=== PATIENT | male | born 1955 | race American Indian/Alaskan Native ===

== ENCOUNTER 2018-10-09 10:05 | Inpatient (IN) | payer MEDICARE ==
[2018-10-09] MEDS ORDERED: NACL 0.9% 1000 ML 1,000 ML IV ONE ×2 (10:33→11:22)
--- NOTE | 2018-10-09 10:38 | Emergency Department Report ---
ED Altered Mental Status HPI - General Stated Complaint: ALTERED MENTAL STATUS Time Seen by Provider: 10/09/18 10:33 Source: patient, EMS - History of Present Illness Initial Comments: Patient was 63 minutes old male with history of end-stage renal disease on hemodialysis, hypertension, diabetes, anemia, prostate cancer and nephrostomy tube. Patient brought to the emergency via EMS from [facility] facility after patient became confused and altered after he sustained a fall from his bed.*Facility stated that patient was fine before the fall. In the emergency room patient is alert, oriented to place only. Patient moving all his extremities. No facial droop. No speech problem. Patient denied any chest pain, shortness of breath, fever or chills. Patient denied any weakness, numbness or tingling sensation. MD Complaint: altered mental status, confusion -: Sudden Severity: moderate Consistency of Symptoms: unknown Associated Symptoms: denies other symptoms - Related Data Allergies Allergy/AdvReac Type Severity Reaction Status Date / Time No Known Allergies Allergy Unverified 10/09/18 11:11 ED Review of Systems ROS: Stated complaint: ALTERED MENTAL STATUS Other details as noted in HPI Comment: All other systems reviewed and negative Constitutional: denies: chills, fever Respiratory: denies: cough, shortness of breath, SOB with exertion, SOB at rest, wheezing Cardiovascular: denies: chest pain, palpitations Gastrointestinal: denies: abdominal pain, nausea, vomiting Musculoskeletal: denies: back pain Neurological: denies: headache, weakness, numbness, paresthesias, confusion, abnormal gait ED Physical Exam - General Limitations: Altered Mental Status General appearance: alert, in no apparent distress - Head Head exam: Present: atraumatic, normocephalic, normal inspection - Eye Eye exam: Present: normal appearance, PERRL - ENT ENT exam: Present: normal exam, normal orophraynx, mucous membranes moist - Neck Neck exam: Present: normal inspection, full ROM. Absent: tenderness, meningismus, lymphadenopathy, thyromegaly - Respiratory Respiratory exam: Present: normal lung sounds bilaterally. Absent: respiratory distress, wheezes, rales, rhonchi, accessory muscle use, decreased breath sounds, prolonged expiratory - Cardiovascular Cardiovascular Exam: Present: regular rate, normal rhythm, normal heart sounds - GI/Abdominal GI/Abdominal exam: Present: soft, normal bowel sounds. Absent: distended, tenderness, guarding, rebound, rigid, organomegaly, mass, bruit, pulsatile mass - Extremities Exam Extremities exam: Present: normal inspection - Back Exam Back exam: Present: normal inspection, other (left nephrostomy tube in place.). Absent: tenderness, CVA tenderness (R), CVA tenderness (L) - Neurological Exam Neurological exam: Present: alert, altered, CN II-XII intact. Absent: motor sensory deficit - Skin Skin exam: Present: warm, intact, normal color ED Course Vital Signs 10/09/18 10/09/18 10/09/18 10:21 10:43 11:01 Temperature Pulse Rate 102 H 103 H Respiratory 11 L 18 13 Rate Blood Pressure 156/94 125/74 O2 Sat by Pulse 98 100 Oximetry 10/09/18 10/09/18 10/09/18 11:02 11:15 11:30 Temperature 99 F Pulse Rate 100 H 95 H Respiratory 10 L 12 Rate Blood Pressure 139/73 119/64 O2 Sat by Pulse 98 100 Oximetry - Lab Data Result diagrams: 10/09/18 10:41 10/09/18 10:41 Lab Results 10/09/18 10/09/18 10/09/18 Range/Units 10:41 10:41 10:41 WBC 26.0 H (4.5-11.0) K/mm3 RBC 2.66 L (3.65-5.03) M/mm3 Hgb 8.2 L (11.8-15.2) gm/dl Hct 23.9 L (35.5-45.6) % MCV 90 (84-94) fl MCH 31 (28-32) pg MCHC 34 (32-34) % RDW 14.2 (13.2-15.2) % Plt Count 368 (140-440) K/mm3 Lymph % (Auto) Field Reporter [place] % (Auto) Field Reporter Eos % (Auto) Field Reporter Baso % (Auto) Field Reporter Lymph # Field Reporter [place] # Field Reporter Eos # Field Reporter Baso # Field Reporter Seg Neutrophils % Field Reporter Seg Neutrophils # Field Reporter PT 16.2 H (12.2-14.9) Sec. INR 1.22 H (0.87-1.13) APTT 30.9 (24.2-36.6) Sec. Sodium 134 L (137-145) mmol/L Potassium 3.5 L (3.6-5.0) mmol/L Chloride 87.0 L (98-107) mmol/L Carbon Dioxide 26 (22-30) mmol/L Anion Gap 25 mmol/L BUN 48 H (9-20) mg/dL Creatinine 8.0 H (0.8-1.5) mg/dL Estimated GFR 8 ml/min BUN/Creatinine Ratio 6 % Glucose 202 H (75-100) mg/dL POC Glucose (70-105) Lactic Acid (0.7-2.0) mmol/L Calcium 10.2 (8.4-10.2) mg/dL Total Bilirubin 0.90 (0.1-1.2) mg/dL Direct Bilirubin 0.5 H (0-0.2) mg/dL Indirect Bilirubin 0.4 mg/dL AST 25 (5-40) units/L ALT 18 (7-56) units/L Alkaline Phosphatase 234 H (35-129) units/L Ammonia (25-60) umol/L Troponin T 0.233 H* (0.00-0.029) ng/mL Total Protein 8.0 (6.3-8.2) g/dL Albumin 3.5 L (3.9-5) g/dL Albumin/Globulin Ratio 0.8 % Triglycerides 274 H (2-149) mg/dL Cholesterol 176 (50-199) mg/dL LDL Cholesterol Direct 61 (50-130) mg/dL HDL Cholesterol 28 L (40-59) mg/dL Cholesterol/HDL Ratio 6.28 % Urine Color (Yellow) Urine Turbidity (Clear) Urine pH Ur Specific [place] Urine Protein (Negative) mg/dL Urine Glucose (UA) (Negative) mg/dL Urine Ketones (Negative) mg/dL Urine Blood (Negative) Urine Nitrite (Negative) Urine Bilirubin (Negative) Urine Ictotest Urine Urobilinogen Ur Leukocyte Esterase (Negative) Urine WBC (Auto) (0.0-6.0) /HPF Urine RBC (Auto) (0.0-6.0) /HPF Urine Bacteria (Auto) (Negative) /HPF 10/09/18 10/09/18 10/09/18 Range/Units 10:41 10:41 10:42 WBC (4.5-11.0) K/mm3 RBC (3.65-5.03) M/mm3 Hgb (11.8-15.2) gm/dl Hct (35.5-45.6) % MCV (84-94) fl MCH (28-32) pg MCHC (32-34) % RDW (13.2-15.2) % Plt Count (140-440) K/mm3 Lymph % (Auto) [place] % (Auto) Eos % (Auto) Baso % (Auto) Lymph # [place] # Eos # Baso # Seg Neutrophils % Seg Neutrophils # PT (12.2-14.9) Sec. INR (0.87-1.13) APTT (24.2-36.6) Sec. Sodium (137-145) mmol/L Potassium (3.6-5.0) mmol/L Chloride (98-107) mmol/L Carbon Dioxide (22-30) mmol/L Anion Gap mmol/L BUN (9-20) mg/dL Creatinine (0.8-1.5) mg/dL Estimated GFR ml/min BUN/Creatinine Ratio % Glucose (75-100) mg/dL POC Glucose 198 H (70-105) Lactic Acid 1.90 (0.7-2.0) mmol/L Calcium (8.4-10.2) mg/dL Total Bilirubin (0.1-1.2) mg/dL Direct Bilirubin (0-0.2) mg/dL Indirect Bilirubin mg/dL AST (5-40) units/L ALT (7-56) units/L Alkaline Phosphatase (35-129) units/L Ammonia 33.0 (25-60) umol/L Troponin T (0.00-0.029) ng/mL Total Protein (6.3-8.2) g/dL Albumin (3.9-5) g/dL Albumin/Globulin Ratio % Triglycerides (2-149) mg/dL Cholesterol (50-199) mg/dL LDL Cholesterol Direct (50-130) mg/dL HDL Cholesterol (40-59) mg/dL Cholesterol/HDL Ratio % Urine Color (Yellow) Urine Turbidity (Clear) Urine pH Ur Specific [place] Urine Protein (Negative) mg/dL Urine Glucose (UA) (Negative) mg/dL Urine Ketones (Negative) mg/dL Urine Blood (Negative) Urine Nitrite (Negative) Urine Bilirubin (Negative) Urine Ictotest Urine Urobilinogen Ur Leukocyte Esterase (Negative) Urine WBC (Auto) (0.0-6.0) /HPF Urine RBC (Auto) (0.0-6.0) /HPF Urine Bacteria (Auto) (Negative) /HPF 10/09/18 Range/Units 11:39 WBC (4.5-11.0) K/mm3 RBC (3.65-5.03) M/mm3 Hgb (11.8-15.2) gm/dl Hct (35.5-45.6) % MCV (84-94) fl MCH (28-32) pg MCHC (32-34) % RDW (13.2-15.2) % Plt Count (140-440) K/mm3 Lymph % (Auto) [place] % (Auto) Eos % (Auto) Baso % (Auto) Lymph # [place] # Eos # Baso # Seg Neutrophils % Seg Neutrophils # PT (12.2-14.9) Sec. INR (0.87-1.13) APTT (24.2-36.6) Sec. Sodium (137-145) mmol/L Potassium (3.6-5.0) mmol/L Chloride (98-107) mmol/L Carbon Dioxide (22-30) mmol/L Anion Gap mmol/L BUN (9-20) mg/dL Creatinine (0.8-1.5) mg/dL Estimated GFR ml/min BUN/Creatinine Ratio % Glucose (75-100) mg/dL POC Glucose (70-105) Lactic Acid (0.7-2.0) mmol/L Calcium (8.4-10.2) mg/dL Total Bilirubin (0.1-1.2) mg/dL Direct Bilirubin (0-0.2) mg/dL Indirect Bilirubin mg/dL AST (5-40) units/L ALT (7-56) units/L Alkaline Phosphatase (35-129) units/L Ammonia (25-60) umol/L Troponin T (0.00-0.029) ng/mL Total Protein (6.3-8.2) g/dL Albumin (3.9-5) g/dL Albumin/Globulin Ratio % Triglycerides (2-149) mg/dL Cholesterol (50-199) mg/dL LDL Cholesterol Direct (50-130) mg/dL HDL Cholesterol (40-59) mg/dL Cholesterol/HDL Ratio % Urine Color [place] (Yellow) Urine Turbidity Turbid (Clear) Urine pH Field Reporter Ur Specific [place] Field Reporter Urine Protein Color interference (Negative) mg/dL Urine Glucose (UA) Color interference (Negative) mg/dL Urine Ketones Color interference (Negative) mg/dL Urine Blood Color interference (Negative) Urine Nitrite Color interference (Negative) Urine Bilirubin Color interference (Negative) Urine Ictotest Not Reportable Urine Urobilinogen Field Reporter Ur Leukocyte Esterase Color interference (Negative) Urine WBC (Auto) > 182.0 H (0.0-6.0) /HPF Urine RBC (Auto) > 182.0 (0.0-6.0) /HPF Urine Bacteria (Auto) 4+ (Negative) /HPF - EKG Data -: EKG Interpreted by Nc EKG shows normal: sinus rhythm Rate: normal Interpretation: no acute changes - Radiology Data Radiology results: report reviewed Referring Physician: RAKESH MOORE Patient Name: ANDREY MONTOYA Date of : 1955 Sex: Male Report Date: 2018-10-09 Report Status: [place] [address] Cat Scan Report Signed Patient: ANDREY MONTOYA MR#: [id number] : 1955 Acct:[id number] Age/Sex: 63 / M ADM Date: 10/09/18 Loc: ED Attending Dr: Ordering Physician: RAKESH MOORE Date of Service: 10/09/18 Procedure(s): CT head/brain wo con Accession Number(s): [id number] cc: RAKESH MOORE CT HEAD WITHOUT CONTRAST: HISTORY: Altered mental status. TECHNIQUE: Sequential CT images without contrast. FINDINGS: Images obtained show bilateral prominence of the sulci and ventricles. There are no abnormal intra- or extra-axial blood or fluid collections. There are no focal masses or evidence of mass effect. The smith white matter differentiation appears within normal limits. Regions of periventricular decreased attenuation are consistent with microangiopathic ischemic disease. The posterior fossa structures including the fourth ventricle, cerebellum, and brainstem appear normal. IMPRESSION: Evidence of atrophy and microangiopathic ischemic disease. No acute intracranial process noted. Transcribed By: TTR Dictated By: JENNY ODOM JR, MD Electronically Authenticated By: JENNY ODOM JR, MD Signed Date/Time: 10/09/18 1105 Referring Physician: RAKESH MOORE Patient Name: ANDREY MONTOYA Date of : 1955 Sex: Male Report Date: 2018-10-09 Report Status: Finalized Findings [facility] [address] [place] [address] XRay Report Signed Patient: ANDREY MONTOYA MR#: [id number] : 1955 Acct:[id number] Age/Sex: 63 / M ADM Date: 10/09/18 Loc: ED Attending Dr: Ordering Physician: RAKESH MOORE Date of Service: 10/09/18 Procedure(s): XR chest 1V ap Accession Number(s): [id number] cc: RAKESH MOORE Fluoro Time In Minutes: AP CHEST: HISTORY: Altered mental status AP view of the chest demonstrates a normal mediastinal and cardiac contour with clear lungs and normal bony and soft tissue structures. A right IJ dialysis catheter terminates in the right atrium. IMPRESSION: Unremarkable AP chest. Transcribed By: TTR Dictated By: JENNY ODOM JR, MD Electronically Authenticated By: JENNY ODOM JR, MD Signed Date/Time: 10/09/18 1128 DD/ 1127 TD/TT: 10/09/18 1128 DD/ 1105 TD/TT: 10/09/18 1105 - Medical Decision Making Patient was 63 minutes old male with history of end-stage renal disease on hemodialysis, hypertension, diabetes, anemia, prostate cancer and nephrostomy tube. Patient brought to the emergency via EMS from acute rehabilitation facility after patient became confused and altered after he sustained a fall from his bed.*Facility stated that patient was fine before the fall. In the emergency room patient is alert, oriented to place only. Patient moving all his extremities. No facial droop. No speech problem. Patient denied any chest pain, shortness of breath, fever or chills. Patient denied any weakness, numbness or tingling sensation. Patient stated that he is feeling better. Patient found to have a urosepsis. Patient received Zosyn. I discussed the patient with Dr. Bianchi, he agreed to admit the patient to medical service. Critical Care Time: Yes Critical care time in (mins) excluding proc time.: 30 Critical care attestation.: If time is entered above; I have spent that time in minutes in the direct care of this critically ill patient, excluding procedure time. ED Disposition Clinical Impression: Sepsis, UTI (urinary tract infection), Altered mental status Disposition: OP ADMIT IP TO THIS HOSP Is pt being admited?: Yes Condition: Stable Referrals: POLY KARIMI MD [Primary Care Provider] - 3-5 Days
[2018-10-09 11:05] LABS: INR 1.22 (0.87-1.13)
[2018-10-09 11:06] LABS: Hematocrit 23.9 % (35.5-45.6); Hemoglobin 8.2 gm/dl (11.8-15.2); Mean Corpuscular HGB Conc 34 % (32-34); Mean Corpuscular Volume 90 fl (84-94); Partial Thromboplastin Time 30.9 Sec. (24.2-36.6); Platelet Count 368 K/mm3 (140-440); Red Blood Count 2.66 M/mm3 (3.65-5.03); Red Cell Distribution Width 14.2 % (13.2-15.2)
--- NOTE | 2018-10-09 11:09 | Cat Scan Report ---
CT HEAD WITHOUT CONTRAST: HISTORY: Altered mental status. TECHNIQUE: Sequential CT images without contrast. FINDINGS: Images obtained show bilateral prominence of the sulci and ventricles. There are no abnormal intra- or extra-axial blood or fluid collections. There are no focal masses or evidence of mass effect. The smith white matter differentiation appears within normal limits. Regions of periventricular decreased attenuation are consistent with microangiopathic ischemic disease. The posterior fossa structures including the fourth ventricle, cerebellum, and brainstem appear normal. IMPRESSION: Evidence of atrophy and microangiopathic ischemic disease. No acute intracranial process noted.
[2018-10-09 11:24] LABS: Albumin 3.5 g/dL (3.9-5); Bilirubin,Direct 0.5 mg/dL (0-0.2); Calcium 10.2 mg/dL (8.4-10.2)
--- NOTE | 2018-10-09 11:32 | XRay Report ---
AP CHEST: HISTORY: Altered mental status AP view of the chest demonstrates a normal mediastinal and cardiac contour with clear lungs and normal bony and soft tissue structures. A right IJ dialysis catheter terminates in the right atrium. IMPRESSION: Unremarkable AP chest.
[2018-10-09 11:48] LABS: Chol/HDL Ratio 6.28 %
[2018-10-09] MEDS ORDERED: ZOSYN/NS 3.375GM/50ML 3.375 GM/50 ML BAG IV ONE (12:00)
[2018-10-09 12:25] LABS: Bacteria,Urine 4+ /HPF (Negative)
[2018-10-09 12:32] LABS: Bilirubin,Urine Color Interference (Negative); Color,Urine Amber (Yellow); RBC,Urine > 182.0 /HPF (0.0-6.0); WBC,Urine > 182.0 /HPF (0.0-6.0)
[2018-10-09 12:33] LABS: Blood,Urine Color Interference (Negative); Protein,Urine Color Interference mg/dL (Negative)
[2018-10-09 14:17] LABS: Band Neutrophils # (Manual) 2.6 K/mm3; Basophils % (Manual) 0 % (0.0-1.8); Eosinophils % (Manual) 0 % (0.0-4.3); Total Cells Counted 100
[2018-10-09 14:18] LABS: Hypochromasia 1+; Platelet Clumps Rare; Platelet Estimate Consistent w Auto
[2018-10-09] MEDS ORDERED: ZOFRAN IV PRN (17:34)
[2018-10-09] MEDS ORDERED: ZOFRAN ONE (17:39)
[2018-10-09] MEDS ORDERED: REGLAN ONE (20:09)
[2018-10-09] MEDS: REGLAN IV PRN (20:40)
--- NOTE | 2018-10-09 22:02 | Event Note ---
Date: 10/09/18 See history and physical in the reports Altered mental status Endstage renal disease Sepsis UTI
[2018-10-09] MEDS ORDERED: TYLENOL PO PRN ×2 (22:03→22:06)
[2018-10-09] MEDS ORDERED: SENOKOT PO PRN (22:06)
[2018-10-09] MEDS: REMERON PO SCH (22:36)
[2018-10-09] MEDS: PEPCID PO SCH (22:36)
[2018-10-09] MEDS: EFFEXOR PO SCH (23:01)
[2018-10-10 06:34] LABS: Hematocrit 23.9 % (35.5-45.6); Hemoglobin 7.8 gm/dl (11.8-15.2); Mean Corpuscular HGB Conc 33 % (32-34); Mean Corpuscular Volume 90 fl (84-94); Platelet Count 316 K/mm3 (140-440); Red Blood Count 2.66 M/mm3 (3.65-5.03); Red Cell Distribution Width 14.7 % (13.2-15.2)
[2018-10-10 06:50] LABS: Albumin 2.7 g/dL (3.9-5); Calcium 9.5 mg/dL (8.4-10.2)
--- NOTE | 2018-10-10 07:27 | History and Physical Report ---
CHIEF COMPLAINT: Altered sensorium for 1 day. HISTORY OF PRESENT ILLNESS: A 63-year-old male brought in for altered sensorium of 1 day duration. The patient has history of end-stage renal disease, on hemodialysis, hypertension, diabetes, anemia, prostate cancer and nephrostomy tube. The patient brought to the Emergency Room from acute rehab facility because of confusion and altered sensorium. Also, he sustained a fall from the bed. Apparently was fine till he had the fall. In the Emergency Room, the patient is confused. Alert, but not oriented. Not answering questions appropriately. The patient is moving all his 4 extremities. Able to talk, but cannot understand what he is trying to say. No fever or chills. PAST MEDICAL HISTORY: Significant for; 1. End-stage renal disease. 2. Chronic constipation. 3. Vitamin D deficiency. 4. Anemia. 5. Depression. PAST SURGICAL HISTORY: The patient had a nephrostomy tube. ADDITIONAL MEDICAL HISTORY: Prostate cancer. FAMILY HISTORY: Hypertension. SOCIAL HISTORY: Unknown whether he was smoking. Now in a rehab facility. PHYSICAL EXAMINATION: GENERAL: Elderly male, cooperative during examination. VITAL SIGNS: Blood pressure is 117/61, temperature is 99.3, heart rate is 99, respiratory rate is 18. HEENT: Unremarkable. Pupils equal and reactive. NECK: Supple, no lymphadenopathy, no thyromegaly. LUNGS: Clear to auscultation and percussion. Good air entry. CARDIOVASCULAR SYSTEM: S1, S2 heard. No gallop, no murmur, no rub. Apical impulse in left fifth intercostal space in midclavicular line. ABDOMEN: Soft and benign. Nephrostomy tube in place. EXTREMITIES: Good pedal pulses. CENTRAL NERVOUS SYSTEM: Alert, but not oriented. Confused. SKIN: Normal. LABORATORY DATA: Significant for white count of 26,000, H and H is 8.2 and 23.9, platelet count is 368,000. Sodium is 134, potassium is 3.5, chloride is 87, BUN and creatinine is 48 and 8.0. Troponin is 0.233, alk phos is 234, triglycerides 274. Urine shows more than 182 WBCs. DIAGNOSTIC DATA: Head CT shows microangiopathic ischemic disease, no acute intracranial process. Chest x-ray, unremarkable AP chest. ASSESSMENT AND PLAN: 1. Sepsis secondary to urinary tract infection. The patient was started on IV ceftriaxone, pending urine cultures. 2. Status post nephrostomy tube. Will get Urology consult. 3. Acute encephalopathy, probably secondary to uremia and sepsis. Will treat both. Nephrology consult requested. 4. End-stage renal disease requiring dialysis and Nephrology consulted. His regular transition social worker is not known. The patient is not able to tell. Location Director advisor consultant was requested to consult. Dr. Mayorga is advisor consultant. 5. Chronic pain. Continue hydrocodone/oxycodone. 6. Vitamin D deficiency. Continue vitamin D. 7. Anemia. Continue ferrous sulfate and Epogen if necessary. 8. Chronic constipation. Continue MiraLax. 9. Deep venous thrombosis prophylaxis, heparin 5000 q. 12. JOB# [id number] NELY/RAYMOND
--- NOTE | 2018-10-10 08:59 | Consultation ---
History of Present Illness - Reason for Consult Consult date: 10/10/18 - History of Present Illness CC prostate cancer, renal failure (NEW TO OUR PRACTICE) Patient was 63 minutes old male with history of end-stage renal disease on hemodialysis, hypertension, diabetes, anemia, prostate cancer and nephrostomy tube. Patient brought to the emergency via EMS from acute rehabilitation facility after patient became confused and altered after he sustained a fall from his bed.*Facility stated that patient was fine before the fall. In the emergency room patient is alert, oriented to place only. Patient moving all his extremities. No facial droop. No speech problem. Patient denied any chest pain, shortness of breath, fever or chills. Patient denied any weakness, numbness or tingling sensation. alert , not oriented ABD SOFT RT PERC TUBE - SMALL [place] URINE + DIAPER A/P HX OF PROSTATE CA PER CHART KIDNEY FAILURE WITH RT PERC TUBE NEEDS PSA, CTAP, RT NEPHROSTOGRAM Medications and Allergies Allergies Allergy/AdvReac Type Severity Reaction Status Date / Time No Known Allergies Allergy Unverified 10/09/18 11:11 Home Medications Medication Instructions Recorded Confirmed Last Taken Type Abiraterone Acetate (Nf) [Zytiga 1,000 mg PO QDAY 10/09/18 10/09/18 Unknown History (Nf)] Acetaminophen [Tylenol] 500 mg PO Q6HR PRN 10/09/18 10/09/18 Unknown History Cholecalciferol Vit D3 [Vitamin D3 2,000 unit PO QDAY 10/09/18 10/09/18 Unknown History 1,000 UNIT TAB] Ferrous Sulfate [Iron] 325 mg PO QDAY 10/09/18 10/09/18 Unknown History HYDROcodone/APAP 5-325 [[place] 1 each PO Q6HR PRN 10/09/18 10/09/18 Unknown History 5/325] Mirtazapine 7.5 mg PO HS 10/09/18 10/09/18 Unknown History Multivit-Min/FA/Lycopen/Lutein 1 each PO DAILY 10/09/18 10/09/18 Unknown History [Men 50 Plus Multivitamin Tab] Ondansetron [Zofran ODT TAB] 8 mg PO Q8HR PRN 10/09/18 10/09/18 Unknown History Polyethylene Glycol 3350 17 gm PO PRN PRN 10/09/18 10/09/18 Unknown History [Smoothlax] Sennosides [Senna Laxative] 8.6 mg PO PRN PRN 10/09/18 10/09/18 Unknown History Sevelamer Carbonate [Renvela] 800 mg PO TIDWM 10/09/18 10/09/18 Unknown History Venlafaxine [Effexor 25mg tab] 25 mg PO BID 10/09/18 10/09/18 Unknown History predniSONE [Prednisone] 5 mg PO QDAY 10/09/18 10/09/18 Unknown History Active Meds: Active Medications Acetaminophen (Tylenol) 650 mg PO Q4H PRN PRN Reason: Pain MILD(1-3)/Fever >100.5/DIAZ Acetaminophen (Tylenol) 500 mg PO Q6HR PRN PRN Reason: Pain, Moderate (4-6) Cholecalciferol (Vitamin D3) 2,000 unit PO QDAY [facility] Famotidine (Pepcid) 10 mg PO BID [facility] Last Admin: 10/09/18 22:36 Dose: 10 mg Documented by: Ferrous Sulfate (Feosol) 325 mg PO QDAY [facility] Hydromorphone HCl (Dilaudid) 0.25 mg IV Q3H PRN PRN Reason: Pain, Moderate (4-6) Ceftriaxone Sodium (Rocephin/Ns 1 Gm/50 Ml) 1 gm in 50 mls @ 100 mls/hr IV Q24HR [facility]; Protocol Metoclopramide HCl (Reglan) 10 mg IV Q6H PRN PRN Reason: Nausea And Vomiting Last Admin: 10/09/18 20:40 Dose: 10 mg Documented by: Mirtazapine (Remeron) 7.5 mg PO QHS [facility] Last Admin: 10/09/18 22:36 Dose: 7.5 mg Documented by: Miscellaneous Medication (Abiraterone Acetate (Nf)) 1,000 mg PO QDAY [facility] Ondansetron HCl (Zofran) 4 mg IV Q8H PRN PRN Reason: Nausea And Vomiting Oxycodone/Acetaminophen (Percocet 5/325) 1 tab PO Q6H PRN PRN Reason: Pain, Moderate (4-6) Pneumococcal Polyvalent Vaccine (Pneumovax 23) 0.5 ml IM .ONCE ONE Stop: 10/10/18 12:01 Prednisone (Deltasone) 5 mg PO QDAY [facility] Senna (Senokot) 8.6 mg PO DAILY PRN PRN Reason: Constipation Sevelamer Carbonate (Renvela) 800 mg PO TIDWM [facility] Sodium Chloride (Sodium Chloride Flush Syringe 10 Ml) 10 ml IV BID [facility] Sodium Chloride (Sodium Chloride Flush Syringe 10 Ml) 10 ml IV PRN PRN PRN Reason: LINE FLUSH Venlafaxine HCl (Effexor) 25 mg PO BID [facility] Last Admin: 10/09/18 23:01 Dose: 25 mg Documented by: Exam - Constitutional Vitals: Temp Pulse Resp BP Pulse Ox 98.9 F 104 H 18 142/70 93 10/10/18 08:13 10/10/18 08:13 10/10/18 08:13 10/10/18 08:13 10/10/18 08:13 Results - Labs CBC & Chem 7: 10/10/18 06:02 10/10/18 06:02 Labs: Abnormal lab results 10/09/18 10/09/18 10/09/18 Range/Units 10:41 10:41 10:41 WBC 26.0 H (4.5-11.0) K/mm3 RBC 2.66 L (3.65-5.03) M/mm3 Hgb 8.2 L (11.8-15.2) gm/dl Hct 23.9 L (35.5-45.6) % Seg Neuts % (Manual) 82.0 H (40.0-70.0) % Lymphocytes % (Manual) 5.0 L (13.4-35.0) % Seg Neutrophils # Man 21.3 H (1.8-7.7) K/mm3 PT 16.2 H (12.2-14.9) Sec. INR 1.22 H (0.87-1.13) Sodium 134 L (137-145) mmol/L Potassium 3.5 L (3.6-5.0) mmol/L Chloride 87.0 L (98-107) mmol/L Carbon Dioxide (22-30) mmol/L BUN 48 H (9-20) mg/dL Creatinine 8.0 H (0.8-1.5) mg/dL Glucose 202 H (75-100) mg/dL POC Glucose (70-105) Direct Bilirubin 0.5 H (0-0.2) mg/dL Alkaline Phosphatase 234 H (35-129) units/L Troponin T 0.233 H* (0.00-0.029) ng/mL Albumin 3.5 L (3.9-5) g/dL Triglycerides 274 H (2-149) mg/dL HDL Cholesterol 28 L (40-59) mg/dL Urine WBC (Auto) (0.0-6.0) /HPF 10/09/18 10/09/18 10/09/18 Range/Units 10:42 11:39 20:15 WBC (4.5-11.0) K/mm3 RBC (3.65-5.03) M/mm3 Hgb (11.8-15.2) gm/dl Hct (35.5-45.6) % Seg Neuts % (Manual) (40.0-70.0) % Lymphocytes % (Manual) (13.4-35.0) % Seg Neutrophils # Man (1.8-7.7) K/mm3 PT (12.2-14.9) Sec. INR (0.87-1.13) Sodium (137-145) mmol/L Potassium (3.6-5.0) mmol/L Chloride (98-107) mmol/L Carbon Dioxide (22-30) mmol/L BUN (9-20) mg/dL Creatinine (0.8-1.5) mg/dL Glucose (75-100) mg/dL POC Glucose 198 H 178 H (70-105) Direct Bilirubin (0-0.2) mg/dL Alkaline Phosphatase (35-129) units/L Troponin T (0.00-0.029) ng/mL Albumin (3.9-5) g/dL Triglycerides (2-149) mg/dL HDL Cholesterol (40-59) mg/dL Urine WBC (Auto) > 182.0 H (0.0-6.0) /HPF 10/09/18 10/10/18 10/10/18 Range/Units 22:12 06:02 06:02 WBC 20.7 H (4.5-11.0) K/mm3 RBC 2.66 L (3.65-5.03) M/mm3 Hgb 7.8 L (11.8-15.2) gm/dl Hct 23.9 L (35.5-45.6) % Seg Neuts % (Manual) (40.0-70.0) % Lymphocytes % (Manual) (13.4-35.0) % Seg Neutrophils # Man (1.8-7.7) K/mm3 PT (12.2-14.9) Sec. INR (0.87-1.13) Sodium 134 L (137-145) mmol/L Potassium (3.6-5.0) mmol/L Chloride 92.3 L (98-107) mmol/L Carbon Dioxide 19 L D (22-30) mmol/L BUN 53 H (9-20) mg/dL Creatinine 8.8 H (0.8-1.5) mg/dL Glucose 145 H (75-100) mg/dL POC Glucose 161 H (70-105) Direct Bilirubin (0-0.2) mg/dL Alkaline Phosphatase 181 H (35-129) units/L Troponin T (0.00-0.029) ng/mL Albumin 2.7 L (3.9-5) g/dL Triglycerides (2-149) mg/dL HDL Cholesterol (40-59) mg/dL Urine WBC (Auto) (0.0-6.0) /HPF 10/10/18 Range/Units 08:18 WBC (4.5-11.0) K/mm3 RBC (3.65-5.03) M/mm3 Hgb (11.8-15.2) gm/dl Hct (35.5-45.6) % Seg Neuts % (Manual) (40.0-70.0) % Lymphocytes % (Manual) (13.4-35.0) % Seg Neutrophils # Man (1.8-7.7) K/mm3 PT (12.2-14.9) Sec. INR (0.87-1.13) Sodium (137-145) mmol/L Potassium (3.6-5.0) mmol/L Chloride (98-107) mmol/L Carbon Dioxide (22-30) mmol/L BUN (9-20) mg/dL Creatinine (0.8-1.5) mg/dL Glucose (75-100) mg/dL POC Glucose 156 H (70-105) Direct Bilirubin (0-0.2) mg/dL Alkaline Phosphatase (35-129) units/L Troponin T (0.00-0.029) ng/mL Albumin (3.9-5) g/dL Triglycerides (2-149) mg/dL HDL Cholesterol (40-59) mg/dL Urine WBC (Auto) (0.0-6.0) /HPF
[2018-10-10] MEDS: RENVELA PO SCH ×4 (09:14→19:01)
[2018-10-10] MEDS ORDERED: ABIRATERONE ACETATE 1000 MG PO SCH (10:00)
[2018-10-10 10:09] LABS: Band Neutrophils # (Manual) 2.1 K/mm3; Basophils % (Manual) 0 % (0.0-1.8); Eosinophils % (Manual) 0 % (0.0-4.3); Hypochromasia 1+; Myelocytes # (Manual) 0.2 K/mm3; Platelet Estimate Consistent w Auto; Total Cells Counted 100
[2018-10-10] MEDS ORDERED: NACL 0.9% 100 ML IV PRN (11:22)
--- NOTE | 2018-10-10 11:42 | Consultation ---
History of Present Illness - Reason for Consult end stage renal disease, hyponatremia - History of Present Illness Limited History obtained from chart patient is very confused 63-year-old gentleman with medical history significant for end-stage renal disease on dialysis, hypertension prostate cancer history of nephrostomy tube placements admitted with confusion and recent fall in detention. He has a right IJ PermCath. The patient is currently unable to provide any history He has a right-sided nephrostomy tube. Last dialysis session is not clear Past History Past Medical History: dialysis Past Surgical History: Other (nephrostomy) Medications and Allergies Allergies Allergy/AdvReac Type Severity Reaction Status Date / Time No Known Allergies Allergy Unverified 10/09/18 11:11 Home Medications Medication Instructions Recorded Confirmed Last Taken Type Abiraterone Acetate (Nf) [Zytiga 1,000 mg PO QDAY 10/09/18 10/09/18 Unknown History (Nf)] Acetaminophen [Tylenol] 500 mg PO Q6HR PRN 10/09/18 10/09/18 Unknown History Cholecalciferol Vit D3 [Vitamin D3 2,000 unit PO QDAY 10/09/18 10/09/18 Unknown History 1,000 UNIT TAB] Ferrous Sulfate [Iron] 325 mg PO QDAY 10/09/18 10/09/18 Unknown History HYDROcodone/APAP 5-325 [[place] 1 each PO Q6HR PRN 10/09/18 10/09/18 Unknown History 5/325] Mirtazapine 7.5 mg PO HS 10/09/18 10/09/18 Unknown History Multivit-Min/FA/Lycopen/Lutein 1 each PO DAILY 10/09/18 10/09/18 Unknown History [Men 50 Plus Multivitamin Tab] Ondansetron [Zofran ODT TAB] 8 mg PO Q8HR PRN 10/09/18 10/09/18 Unknown History Polyethylene Glycol 3350 17 gm PO PRN PRN 10/09/18 10/09/18 Unknown History [Smoothlax] Sennosides [Senna Laxative] 8.6 mg PO PRN PRN 10/09/18 10/09/18 Unknown History Sevelamer Carbonate [Renvela] 800 mg PO TIDWM 10/09/18 10/09/18 Unknown History Venlafaxine [Effexor 25mg tab] 25 mg PO BID 10/09/18 10/09/18 Unknown History predniSONE [Prednisone] 5 mg PO QDAY 10/09/18 10/09/18 Unknown History Active Meds: Active Medications Acetaminophen (Tylenol) 650 mg PO Q4H PRN PRN Reason: Pain MILD(1-3)/Fever >100.5/DIAZ Acetaminophen (Tylenol) 500 mg PO Q6HR PRN PRN Reason: Pain, Moderate (4-6) Cholecalciferol (Vitamin D3) 2,000 unit PO QDAY [facility] Famotidine (Pepcid) 10 mg PO BID [facility] Last Admin: 10/09/18 22:36 Dose: 10 mg Documented by: Ferrous Sulfate (Feosol) 325 mg PO QDAY [facility] Hydromorphone HCl (Dilaudid) 0.25 mg IV Q3H PRN PRN Reason: Pain, Moderate (4-6) Ceftriaxone Sodium (Rocephin/Ns 1 Gm/50 Ml) 1 gm in 50 mls @ 100 mls/hr IV Q24HR [facility]; Protocol Metoclopramide HCl (Reglan) 10 mg IV Q6H PRN PRN Reason: Nausea And Vomiting Last Admin: 10/09/18 20:40 Dose: 10 mg Documented by: Mirtazapine (Remeron) 7.5 mg PO QHS [facility] Last Admin: 10/09/18 22:36 Dose: 7.5 mg Documented by: Miscellaneous Medication (Abiraterone Acetate (Nf)) 1,000 mg PO QDAY [facility] Ondansetron HCl (Zofran) 4 mg IV Q8H PRN PRN Reason: Nausea And Vomiting Oxycodone/Acetaminophen (Percocet 5/325) 1 tab PO Q6H PRN PRN Reason: Pain, Moderate (4-6) Pneumococcal Polyvalent Vaccine (Pneumovax 23) 0.5 ml IM .ONCE ONE Stop: 10/10/18 12:01 Prednisone (Deltasone) 5 mg PO QDAY [facility] Senna (Senokot) 8.6 mg PO DAILY PRN PRN Reason: Constipation Sevelamer Carbonate (Renvela) 800 mg PO TIDWM [facility] Last Admin: 10/10/18 09:19 Dose: Not Given Documented by: Sodium Chloride (Sodium Chloride Flush Syringe 10 Ml) 10 ml IV BID [facility] Sodium Chloride (Sodium Chloride Flush Syringe 10 Ml) 10 ml IV PRN PRN PRN Reason: LINE FLUSH Venlafaxine HCl (Effexor) 25 mg PO BID [facility] Last Admin: 10/09/18 23:01 Dose: 25 mg Documented by: Review of Systems ROS unobtainable: due to mental status (patient is very confused review of systems unobtainable) Exam - Vital Signs Vital signs: Vital Signs Resp 11 L 10/09/18 10:21 - General Appearance General appearance: chronically ill, fatigue, frail EENT: ATNC, PERRL, mucous membranes dry Neck: Present: neck supple Respiratory: Clear to Ascultation Heart: regular, S1S2 Gastrointestinal: Present: normal, normoactive bowel sounds Integumentary: no rash Neurologic: confused Musculoskeletal: Present: deferred Psychiatric: depressed Additional exam: Right nephrostomy tube Results - Lab Results 10/10/18 06:02 10/10/18 06:02 Most recent lab results Calcium 9.5 mg/dL (8.4-10.2) 10/10/18 06:02 I reviewed chest x-ray with mostly clear lung maloney Assessment and Plan - Patient Problems (1) End stage renal disease Current Visit: Yes Status: Acute Plan to address problem: End-stage renal disease Access right IJ catheter We'll initiate dialysis 2K/2.5CA/35HCO3 BATH UF : 2L . (2) Hypertension Current Visit: Yes Status: Acute Qualifiers: Hypertension type: essential hypertension Qualified Code(s): I10 - Essential (primary) hypertension Plan to address problem: Hypertension controlled Monitor blood pressure (3) Sepsis Current Visit: Yes Status: Acute Plan to address problem: Sepsis secondary to urinary tract infection SIRS criteria 2 out of 4 Leukocytosis and tachycardia Urinalysis revealed numerous white cells Blood cultures pending. Obtain urine culture (4) Anemia Current Visit: Yes Status: Acute Qualifiers: Anemia type: due to chronic kidney disease Plan to address problem: Moderate anemia hemoglobin 7.8 g per DL Etiology likely secondary to chronic kidney disease We'll give Epogen 20,000 units with dialysis Monitor CBC We will follow with you thank you for this consultation (5) Metabolic acidosis Current Visit: Yes Status: Acute Plan to address problem: Metabolic acidosis secondary to renal failure We'll initiate dialysis We will follow with you. Thank you for this consult.
[2018-10-10] MEDS ORDERED: PNEUMOVAX 23 IM ONE (12:00)
[2018-10-10] MEDS ORDERED: AFLURIA QUAD 2018-2019 SYRINGE IM ONE (12:00)
[2018-10-10] MEDS: VITAMIN D3 PO SCH (12:26)
[2018-10-10] MEDS: PEPCID PO SCH ×2 (12:27→23:30)
[2018-10-10] MEDS: FEOSOL PO SCH (12:27)
[2018-10-10] MEDS: SODIUM CHLORIDE FLUSH SYRINGE 10 ML IV SCH ×2 (12:28→23:40)
--- NOTE | 2018-10-10 12:34 | Cat Scan Report ---
CT ABDOMEN PELVIS WITHOUT CONTRAST: HISTORY: Kidney failure. COMPARISON: No relevant comparison. TECHNIQUE: Helical CT in 1.25mm intervals without IV contrast. Sagittal and coronal reconstructions. FINDINGS: Lung bases: Trace bilateral pleural effusions. The visualized lung bases are adequately aerated. Multiple enlarged lymph nodes are partially visualized in the mediastinum including the AP window chain, right paratracheal chain and subcarinal chain measuring up to 3-4 cm. Liver: Within normal limits. Biliary system: Normal. Pancreas: Normal. Spleen: Normal. Kidneys/ureters/bladder: There is a large subcapsular hematoma which compresses the right kidney and measures up to 2.9 cm in thickness. A right nephrostomy tube is identified which appears in good position. There is also a right ureteral stent which is in good position. No evidence for hydronephrosis, obvious mass or nephrolithiasis. The left kidney and collecting system are unremarkable. The bladder is partially empty but unremarkable. Adrenal glands: Normal. Aorta: Normal. Intestines: Within normal limits given no oral contrast was administered. Appendix: Normal. Ascites: None. Adenopathy: Multiple enlarged lymph nodes are noted in the celiac axis chain, left periaortic chain, aortocaval chain and bilateral iliac chains. Musculoskeletal: Numerous lytic lesions are noted throughout the thoracolumbar spine and pelvis. IMPRESSION: Large subcapsular hematoma is identified in the right kidney which significantly compresses the right kidney. Right nephrostomy tube and right ureteral stent are in good position. Numerous enlarged lymph nodes are noted throughout the chest, abdomen and pelvis. Numerous lytic bony lesions are also identified. This could represent lymphoma although other metastatic disease is not excluded. Please correlate with the patient's history. Trace bilateral pleural effusions. No acute inflammatory process is identified.
[2018-10-10] MEDS: ROCEPHIN/NS 1 GM/50 ML 1 GM/50 ML BAG IV SCH (12:38)
[2018-10-10] MEDS: DELTASONE PO SCH (12:39)
[2018-10-10] MEDS: EFFEXOR PO SCH ×2 (12:39→23:40)
--- NOTE | 2018-10-10 13:29 | Event Note ---
Date: 10/10/18 ps[facility] [id number] CTAP--- rt perc in good position, stent + bone mets start casodex
--- NOTE | 2018-10-10 13:51 | Fluoroscopy Report ---
FLUOROSCOPY NEPHROSTOGRAM EXISTING RIGHT History: Kidney failure. Findings: 13 fluoroscopic images were captured during this exam. The right nephrostomy tube was injected approximately 25 cc of water-soluble contrast. The nephrostomy tube appears to be in good position. There is no evidence for hydronephrosis. A right ureteral stent is also in good position and opacifies with contrast all the way to the bladder. No filling defect or abnormal dilatation is identified. Correlation with recent CT abdomen and pelvis demonstrates a large subcapsular hematoma in the right kidney. Please refer to that report. Impression: Essentially unremarkable nephrostogram. No obstruction or filling defect is identified.
[2018-10-10] MEDS ORDERED: NACL 0.9 (PRIMING MACHINE ONLY DIALYSIS) MC ONE (15:02)
[2018-10-10] MEDS: PROCRIT IV PRN (17:30)
[2018-10-10] MEDS: REGLAN IV PRN (18:12)
[2018-10-10 19:08] LABS: Hepatitis C Virus Antibody Non-Reactive (NonReactive)
[2018-10-10] MEDS ORDERED: NON-FORMULARY (Mirtazapine [Mirtazapine] 7.5 MG) PO SCH (22:00)
[2018-10-10] MEDS ORDERED: FLEET PR ONE (23:09)
[2018-10-10] MEDS: REMERON PO SCH (23:40)
[2018-10-10] MEDS: ZOFRAN IV PRN (23:43)
[2018-10-11] MEDS: DILAUDID IV PRN ×2 (02:17→09:09)
[2018-10-11] MEDS: SODIUM CHLORIDE FLUSH SYRINGE 10 ML IV PRN ×2 (09:09→14:04)
[2018-10-11] MEDS: RENVELA PO SCH ×3 (09:10→17:35)
[2018-10-11] MEDS: ROCEPHIN/NS 1 GM/50 ML 1 GM/50 ML BAG IV SCH (09:53)
[2018-10-11] MEDS: VITAMIN D3 PO SCH (09:54)
[2018-10-11] MEDS: FEOSOL PO SCH (09:54)
[2018-10-11] MEDS: CASODEX PO SCH (09:54)
[2018-10-11] MEDS: EFFEXOR PO SCH ×2 (09:54→22:15)
[2018-10-11] MEDS: DELTASONE PO SCH (09:54)
--- NOTE | 2018-10-11 12:54 | Progress Note ---
Assessment and Plan - Patient Problems (1) End stage renal disease Current Visit: Yes Status: Acute Plan to address problem: End-stage renal disease Access right IJ catheter Receive dialysis on 10/10/2018 on dialysis Repeat dialysis in the a.m. (2) Hypertension Current Visit: Yes Status: Acute Qualifiers: Hypertension type: essential hypertension Qualified Code(s): I10 - Essential (primary) hypertension Plan to address problem: Hypertension controlled Monitor blood pressure (3) Sepsis Current Visit: Yes Status: Acute Plan to address problem: Sepsis secondary to urinary tract infection SIRS criteria 2 out of 4 Leukocytosis and tachycardia Urinalysis revealed numerous white cells Blood cultures pending. Obtain urine culture (4) Anemia Current Visit: Yes Status: Acute Qualifiers: Anemia type: due to chronic kidney disease Plan to address problem: Moderate anemia hemoglobin 7.8 g per DL Etiology likely secondary to chronic kidney disease We'll give Epogen 20,000 units with dialysis Monitor CBC We will follow with you thank you for this consultation (5) Metabolic acidosis Current Visit: Yes Status: Acute Plan to address problem: Metabolic acidosis secondary to renal failure continue dialysis We will follow with you. Thank you for this consult. Subjective Principal diagnosis: end-stage renal disease Interval history: Limited History obtained from chart patient is very confused 63-year-old gentleman with medical history significant for end-stage renal disease on dialysis, hypertension prostate cancer history of nephrostomy tube placements admitted with confusion and recent fall in half-way. He has a right IJ PermCath. He had dialysis yesterday and remains confused Review of systems unobtainable Objective - Vital Signs Vital signs: Vital Signs - 12hr 10/11/18 10/11/18 10/11/18 02:17 02:47 03:21 Temperature 98.3 F Pulse Rate 105 H Respiratory 22 18 20 Rate Blood Pressure 106/67 O2 Sat by Pulse 100 Oximetry 10/11/18 10/11/18 08:08 10:00 Temperature 98.3 F Pulse Rate 101 H Respiratory 18 Rate Blood Pressure 118/67 O2 Sat by Pulse 93 93 Oximetry - General Appearance General appearance: well-developed, well-nourished EENT: ATNC, PERRL, mucous membranes moist Neck: no JVD Respiratory: Present: Decreased Breath Sounds Cardiology: regular, S1S2 Gastrointestinal: normal, normoactive bowel sounds Integumentary: no rash Neurologic: alert and oriented x3 Musculoskeletal: deferred Psychiatric: mood/affect appropriate - Lab 10/10/18 06:02 10/10/18 06:02 Most recent lab results Calcium 9.5 mg/dL (8.4-10.2) 10/10/18 06:02 - Imaging Chest x-ray: image reviewed (I reviewed chest x-ray without any overt edema right IJ PermCath) Medications & Allergies - Medications Allergies/Adverse Reactions: Allergies No Known Allergies Allergy (Unverified 10/09/18 11:11) Home Medications: Home Medications Medication Instructions Recorded Confirmed Last Taken Type Abiraterone Acetate (Nf) [Zytiga 1,000 mg PO QDAY 10/09/18 10/09/18 Unknown History (Nf)] Acetaminophen [Tylenol] 500 mg PO Q6HR PRN 10/09/18 10/09/18 Unknown History Cholecalciferol Vit D3 [Vitamin D3 2,000 unit PO QDAY 10/09/18 10/09/18 Unknown History 1,000 UNIT TAB] Ferrous Sulfate [Iron] 325 mg PO QDAY 10/09/18 10/09/18 Unknown History HYDROcodone/APAP 5-325 [[place] 1 each PO Q6HR PRN 10/09/18 10/09/18 Unknown History 5/325] Mirtazapine 7.5 mg PO HS 10/09/18 10/09/18 Unknown History Multivit-Min/FA/Lycopen/Lutein 1 each PO DAILY 10/09/18 10/09/18 Unknown History [Men 50 Plus Multivitamin Tab] Ondansetron [Zofran ODT TAB] 8 mg PO Q8HR PRN 10/09/18 10/09/18 Unknown History Polyethylene Glycol 3350 17 gm PO PRN PRN 10/09/18 10/09/18 Unknown History [Smoothlax] Sennosides [Senna Laxative] 8.6 mg PO PRN PRN 10/09/18 10/09/18 Unknown History Sevelamer Carbonate [Renvela] 800 mg PO TIDWM 10/09/18 10/09/18 Unknown History Venlafaxine [Effexor 25mg tab] 25 mg PO BID 10/09/18 10/09/18 Unknown History predniSONE [Prednisone] 5 mg PO QDAY 10/09/18 10/09/18 Unknown History Active Medications: Generic Name Dose Route Start Last Admin Trade Name Freq PRN Reason Stop Dose Admin Acetaminophen 650 mg 10/09/18 22:03 Tylenol PO Q4H PRN Pain MILD(1-3)/Fever >100.5/DIAZ Acetaminophen 500 mg 10/09/18 22:06 Tylenol PO Q6HR PRN Pain, Moderate (4-6) Bicalutamide 50 mg 10/11/18 10:00 10/11/18 09:54 Casodex PO 50 mg QDAY [facility] Administration Cholecalciferol 2,000 unit 10/10/18 10:00 10/11/18 09:54 Vitamin D3 PO 2,000 unit QDAY [facility] Administration Epoetin Víctor 20,000 unit 10/10/18 14:00 10/10/18 17:30 Procrit IV 20,000 unit [place] PRN Administration .anemia Famotidine 10 mg 10/09/18 23:00 10/10/18 23:30 Pepcid PO 10 mg BID [facility] Administration Ferrous Sulfate 325 mg 10/10/18 10:00 10/11/18 09:54 Feosol PO 325 mg QDAY [facility] Administration Hydromorphone HCl 0.25 mg 10/09/18 22:03 10/11/18 09:09 Dilaudid IV 0.25 mg Q3H PRN Administration Pain, Moderate (4-6) Ceftriaxone Sodium 1 gm in 50 mls @ 100 mls/hr 10/10/18 10:00 10/11/18 09:53 Rocephin/Ns 1 Gm/50 Ml IV 100 mls/hr Q24HR [facility] Administration Protocol Sodium Chloride 100 mls @ 999 mls/hr 10/10/18 11:22 Nacl 0.9% IV [place] PRN Hypotension Metoclopramide HCl 10 mg 10/09/18 20:01 10/10/18 18:12 Reglan IV 10 mg Q6H PRN Administration Nausea And Vomiting Mirtazapine 7.5 mg 10/09/18 22:00 10/10/18 23:40 Remeron PO 7.5 mg QHS [facility] Administration Miscellaneous Medication 1,000 mg 10/10/18 10:00 Abiraterone Acetate (Nf) PO QDAY [facility] Ondansetron HCl 4 mg 10/09/18 22:03 10/10/18 23:43 Zofran IV 4 mg Q8H PRN Administration Nausea And Vomiting Oxycodone/Acetaminophen 1 tab 10/09/18 22:03 Percocet 5/325 PO Q6H PRN Pain, Moderate (4-6) Prednisone 5 mg 10/10/18 10:00 10/11/18 09:54 Deltasone PO 5 mg QDAY [facility] Administration Senna 8.6 mg 10/09/18 22:06 10/10/18 22:32 Senokot PO 8.6 mg DAILY PRN Administration Constipation Sevelamer Carbonate 800 mg 10/10/18 08:00 10/11/18 09:10 Renvela PO 800 mg TIDWM [facility] Administration Sodium Chloride 10 ml 10/10/18 10:00 10/10/18 23:40 Sodium Chloride Flush Syringe 10 Ml IV 10 ml BID [facility] Administration Sodium Chloride 10 ml 10/09/18 22:03 10/11/18 09:09 Sodium Chloride Flush Syringe 10 Ml IV 10 ml PRN PRN Administration LINE FLUSH Venlafaxine HCl 25 mg 10/09/18 23:00 10/11/18 09:54 Effexor PO 25 mg BID [facility] Administration
[2018-10-11] MEDS: PERCOCET 5/325 PO PRN (13:20)
[2018-10-11] MEDS: PEPCID PO SCH ×2 (13:21→22:15)
[2018-10-11] MEDS: ZOFRAN IV PRN (14:04)
--- NOTE | 2018-10-11 15:32 | Progress Note ---
Assessment and Plan (1) Sepsis Current Visit: Yes Status: Acute Plan to address problem: Sepsis secondary to urinary tract infection SIRS criteria 2 out of 4 Leukocytosis and tachycardia Urinalysis revealed numerous white cells Blood cultures pending. Obtain urine culture (2)Acute Encephalopathy Secondary to Uremia and Sepsis improving (3)Chronic Pain Pain control with Analgesics (4) End stage renal disease Current Visit: Yes Status: Acute Plan to address problem: End-stage renal disease Access right IJ catheter Receive dialysis on 10/10/2018 on dialysis Repeat dialysis in the a.m. (5) Hypertension Current Visit: Yes Status: Acute Qualifiers: Hypertension type: essential hypertension Qualified Code(s): I10 - Essential (primary) hypertension Plan to address problem: Hypertension controlled Monitor blood pressure (6) Anemia Current Visit: Yes Status: Acute Qualifiers: Anemia type: due to chronic kidney disease Plan to address problem: Moderate anemia hemoglobin 7.8 g per DL Etiology likely secondary to chronic kidney disease We'll give Epogen 20,000 units with dialysis d Monitor CBC (7)Nephrostomy tube Urology consult appreciated (8)DVT Prophylaxis On Heparin and GI prophylaxis Subjective Date of service: 10/10/18 Principal diagnosis: end-stage renal disease,Sepsis Interval history: Afebrile Objective - Constitutional Vitals: Vital Signs - 12hr 10/11/18 10/11/18 10/11/18 08:08 10:00 13:31 Temperature 98.3 F 99.0 F Pulse Rate 101 H 103 H Respiratory 18 18 Rate Blood Pressure 118/67 147/74 O2 Sat by Pulse 93 93 100 Oximetry General appearance: Present: no acute distress, well-nourished - EENT Eyes: PERRL, EOM intact ENT: hearing intact, clear oral mucosa Ears: bilateral: normal - Neck Neck: supple, normal ROM - Respiratory Respiratory effort: normal Respiratory: bilateral: CTA - Breasts Breasts: normal - Cardiovascular Rhythm: regular Heart Sounds: Present: S1 & S2. Absent: gallop, rub Extremities: pulses intact, No edema, normal color, Full ROM - Gastrointestinal General gastrointestinal: Present: soft, non-tender, non-distended, normal bowel sounds - Genitourinary Male genitourinary: normal - Integumentary Integumentary: clear, warm, dry - Musculoskeletal Musculoskeletal: 1, strength equal bilaterally - Neurologic Neurologic: moves all extremities - Psychiatric Psychiatric: memory intact, appropriate mood/affect, intact judgment & insight - Labs CBC & Chem 7: 10/10/18 06:02 10/10/18 06:02 Labs: Abnormal lab results 10/11/18 10/11/18 Range/Units 08:15 11:45 POC Glucose 267 H 302 H (70-105)
--- NOTE | 2018-10-11 17:38 | Progress Note ---
Subjective Date of service: 10/11/18 Principal diagnosis: end-stage renal disease,Sepsis Interval history: CC prostate cancer, renal failure (NEW TO OUR PRACTICE) Patient was 63 minutes old male with history of end-stage renal disease on hemodialysis, hypertension, diabetes, anemia, prostate cancer and nephrostomy tube. Patient brought to the emergency via EMS from [facility] after patient became confused and altered after he sustained a fall from his bed.*Facility stated that patient was fine before the fall. In the emergency room patient is alert, oriented to place only. Patient moving all his extremities. No facial droop. No speech problem. Patient denied any chest pain, shortness of breath, fever or chills. Patient denied any weakness, numbness or tingling sensation. Former present today. Pt gets care at [facility]. He was recently in hosptial when perc tube placed and started dialysis he is on new prostate cancer medication psa [id number]----started Casodex alert ,oriented ABD SOFT RT PERC TUBE - SMALL AMOUNT NIXON URINE + DIAPER A/P HX OF PROSTATE CA PER CHART KIDNEY FAILURE WITH RT PERC TUBE continue care transition back to PR when stable Objective - Constitutional Vitals: Vital Signs - 12hr 10/11/18 10/11/18 10/11/18 08:08 10:00 13:31 Temperature 98.3 F 99.0 F Pulse Rate 101 H 103 H Respiratory 18 18 Rate Blood Pressure 118/67 147/74 O2 Sat by Pulse 93 93 100 Oximetry - Labs CBC & Chem 7: 10/10/18 06:02 10/10/18 06:02 Labs: Abnormal lab results 10/11/18 10/11/18 Range/Units 08:15 11:45 POC Glucose 267 H 302 H (70-105) Medications & Allergies - Medications Allergies/Adverse Reactions: Allergies No Known Allergies Allergy (Unverified 10/09/18 11:11) Home Medications: Home Medications Medication Instructions Recorded Confirmed Last Taken Type Abiraterone Acetate (Nf) [Zytiga 1,000 mg PO QDAY 10/09/18 10/09/18 Unknown History (Nf)] Acetaminophen [Tylenol] 500 mg PO Q6HR PRN 10/09/18 10/09/18 Unknown History Cholecalciferol Vit D3 [Vitamin D3 2,000 unit PO QDAY 10/09/18 10/09/18 Unknown History 1,000 UNIT TAB] Ferrous Sulfate [Iron] 325 mg PO QDAY 10/09/18 10/09/18 Unknown History HYDROcodone/APAP 5-325 [[place] 1 each PO Q6HR PRN 10/09/18 10/09/18 Unknown History 5/325] Mirtazapine 7.5 mg PO HS 10/09/18 10/09/18 Unknown History Multivit-Min/FA/Lycopen/Lutein 1 each PO DAILY 10/09/18 10/09/18 Unknown History [Men 50 Plus Multivitamin Tab] Ondansetron [Zofran ODT TAB] 8 mg PO Q8HR PRN 10/09/18 10/09/18 Unknown History Polyethylene Glycol 3350 17 gm PO PRN PRN 10/09/18 10/09/18 Unknown History [Smoothlax] Sennosides [Senna Laxative] 8.6 mg PO PRN PRN 10/09/18 10/09/18 Unknown History Sevelamer Carbonate [Renvela] 800 mg PO TIDWM 10/09/18 10/09/18 Unknown History Venlafaxine [Effexor 25mg tab] 25 mg PO BID 10/09/18 10/09/18 Unknown History predniSONE [Prednisone] 5 mg PO QDAY 10/09/18 10/09/18 Unknown History Active Medications: Generic Name Dose Route Start Last Admin Trade Name Freq PRN Reason Stop Dose Admin Acetaminophen 650 mg 10/09/18 22:03 Tylenol PO Q4H PRN Pain MILD(1-3)/Fever >100.5/DIAZ Acetaminophen 500 mg 10/09/18 22:06 Tylenol PO Q6HR PRN Pain, Moderate (4-6) Bicalutamide 50 mg 10/11/18 10:00 10/11/18 09:54 Casodex PO 50 mg QDAY ENRICO Administration Cholecalciferol 2,000 unit 10/10/18 10:00 10/11/18 09:54 Vitamin D3 PO 2,000 unit QDAY ENRICO Administration Epoetin Víctor 20,000 unit 10/10/18 14:00 10/10/18 17:30 Procrit IV 20,000 unit DAKOTA PRN Administration .anemia Famotidine 10 mg 10/09/18 23:00 10/11/18 13:21 Pepcid PO 10 mg BID ENRICO Administration Ferrous Sulfate 325 mg 10/10/18 10:00 10/11/18 09:54 Feosol PO 325 mg QDAY ENRICO Administration Hydromorphone HCl 0.25 mg 10/09/18 22:03 10/11/18 09:09 Dilaudid IV 0.25 mg Q3H PRN Administration Pain, Moderate (4-6) Ceftriaxone Sodium 1 gm in 50 mls @ 100 mls/hr 10/10/18 10:00 10/11/18 09:53 Rocephin/Ns 1 Gm/50 Ml IV 100 mls/hr Q24HR ENRICO Administration Protocol Sodium Chloride 100 mls @ 999 mls/hr 10/10/18 11:22 Nacl 0.9% IV DAKOTA PRN Hypotension Metoclopramide HCl 10 mg 10/09/18 20:01 10/10/18 18:12 Reglan IV 10 mg Q6H PRN Administration Nausea And Vomiting Mirtazapine 7.5 mg 10/09/18 22:00 10/10/18 23:40 Remeron PO 7.5 mg QHS ENRICO Administration Miscellaneous Medication 1,000 mg 10/10/18 10:00 Abiraterone Acetate (Nf) PO QDAY ENRICO Ondansetron HCl 4 mg 10/09/18 22:03 10/11/18 14:04 Zofran IV 4 mg Q8H PRN Administration Nausea And Vomiting Oxycodone/Acetaminophen 1 tab 10/09/18 22:03 10/11/18 13:20 Percocet 5/325 PO 1 tab Q6H PRN Administration Pain, Moderate (4-6) Prednisone 5 mg 10/10/18 10:00 10/11/18 09:54 Deltasone PO 5 mg QDAY ENRICO Administration Senna 8.6 mg 10/09/18 22:06 10/10/18 22:32 Senokot PO 8.6 mg DAILY PRN Administration Constipation Sevelamer Carbonate 800 mg 10/10/18 08:00 10/11/18 13:14 Renvela PO 800 mg TIDWM ENRICO Administration Sodium Chloride 10 ml 10/10/18 10:00 10/10/18 23:40 Sodium Chloride Flush Syringe 10 Ml IV 10 ml BID ENRICO Administration Sodium Chloride 10 ml 10/09/18 22:03 10/11/18 14:04 Sodium Chloride Flush Syringe 10 Ml IV 10 ml PRN PRN Administration LINE FLUSH Venlafaxine HCl 25 mg 10/09/18 23:00 10/11/18 09:54 Effexor PO 25 mg BID ENRICO Administration
[2018-10-11] MEDS: SODIUM CHLORIDE FLUSH SYRINGE 10 ML IV SCH ×2 (17:41→22:15)
[2018-10-11 21:59] LABS: Hepatitis B Surface Antigen Non-Reactive (Negative)
[2018-10-11] MEDS: REMERON PO SCH (22:14)
[2018-10-12 05:34] LABS: Hematocrit 21.9 % (35.5-45.6); Hemoglobin 7.3 gm/dl (11.8-15.2); Mean Corpuscular HGB Conc 34 % (32-34); Mean Corpuscular Volume 91 fl (84-94); Platelet Count 339 K/mm3 (140-440); Red Blood Count 2.41 M/mm3 (3.65-5.03); Red Cell Distribution Width 14.7 % (13.2-15.2)
[2018-10-12] MEDS ORDERED: NACL 0.9% 100 ML IV PRN ×2 (06:02→22:25)
[2018-10-12 07:00] LABS: Basophils % (Manual) 0 % (0.0-1.8); Eosinophils % (Manual) 0 % (0.0-4.3); Hypochromasia Few; Myelocytes # (Manual) 0.3 K/mm3; Total Cells Counted 100
[2018-10-12] MEDS: CASODEX PO SCH (10:08)
[2018-10-12] MEDS: VITAMIN D3 PO SCH (10:08)
[2018-10-12] MEDS: DELTASONE PO SCH (10:08)
[2018-10-12] MEDS: RENVELA PO SCH ×3 (10:08→16:03)
[2018-10-12] MEDS: PEPCID PO SCH ×2 (10:08→22:33)
[2018-10-12] MEDS: ROCEPHIN/NS 1 GM/50 ML 1 GM/50 ML BAG IV SCH (10:08)
[2018-10-12] MEDS: FEOSOL PO SCH (10:08)
[2018-10-12] MEDS: SODIUM CHLORIDE FLUSH SYRINGE 10 ML IV SCH ×2 (10:09→22:47)
[2018-10-12] MEDS: EFFEXOR PO SCH ×2 (10:09→22:33)
[2018-10-12] MEDS ORDERED: NACL 0.9 (PRIMING MACHINE ONLY DIALYSIS) MC ONE (11:52)
--- NOTE | 2018-10-12 12:24 | Progress Note ---
Assessment and Plan - Patient Problems (1) End stage renal disease Current Visit: Yes Status: Acute Plan to address problem: End-stage renal disease Access right IJ catheter Continue hemodialysis Tuesday (2) Hypertension Current Visit: Yes Status: Acute Qualifiers: Hypertension type: essential hypertension Qualified Code(s): I10 - Essential (primary) hypertension Plan to address problem: Hypertension controlled Monitor blood pressure (3) Sepsis Current Visit: Yes Status: Acute Plan to address problem: Sepsis secondary to urinary tract infection SIRS criteria 2 out of 4 Leukocytosis and tachycardia Urinalysis revealed numerous white cells Blood cultures pending. Obtain urine culture (4) Anemia Current Visit: Yes Status: Acute Qualifiers: Anemia type: due to chronic kidney disease Plan to address problem: Moderate anemia hemoglobin 7.8 g per DL Etiology likely secondary to chronic kidney disease We'll give Epogen 20,000 units with dialysis Monitor CBC We will follow with you thank you for this consultation Subjective Principal diagnosis: end-stage renal disease,Sepsis Interval history: Limited History obtained from chart patient is very confused 63-year-old gentleman with medical history significant for end-stage renal disease on dialysis, hypertension prostate cancer history of nephrostomy tube placements admitted with confusion and recent fall in care home. He has a right IJ PermCath. Mental status much improved today he tells me he dialyzes at [facility] Denies any shortness of breath Objective - Vital Signs Vital signs: Vital Signs - 12hr 10/12/18 10/12/18 10/12/18 02:17 04:42 07:47 Temperature 97.8 F 99.1 F Pulse Rate 97 H 104 H Respiratory 20 20 Rate Blood Pressure 130/70 126/79 O2 Sat by Pulse 100 100 Oximetry - General Appearance General appearance: well-developed, well-nourished EENT: ATNC, PERRL, mucous membranes moist Neck: no JVD Respiratory: Present: Clear to Ascultation Cardiology: regular, S1S2 Gastrointestinal: normal, normoactive bowel sounds Integumentary: no rash Neurologic: no focal deficit, other (awake and alert. ) Musculoskeletal: deferred Psychiatric: mood/affect appropriate - Lab 10/12/18 04:36 10/12/18 04:36 Most recent lab results Calcium 10.0 mg/dL (8.4-10.2) 10/12/18 04:36 - Imaging Chest x-ray: image reviewed (i reviewed chest x-ray without overt edema) Medications & Allergies - Medications Allergies/Adverse Reactions: Allergies No Known Allergies Allergy (Unverified 10/09/18 11:11) Home Medications: Home Medications Medication Instructions Recorded Confirmed Last Taken Type Abiraterone Acetate (Nf) [Zytiga 1,000 mg PO QDAY 10/09/18 10/09/18 Unknown History (Nf)] Acetaminophen [Tylenol] 500 mg PO Q6HR PRN 10/09/18 10/09/18 Unknown History Cholecalciferol Vit D3 [Vitamin D3 2,000 unit PO QDAY 10/09/18 10/09/18 Unknown History 1,000 UNIT TAB] Ferrous Sulfate [Iron] 325 mg PO QDAY 10/09/18 10/09/18 Unknown History HYDROcodone/APAP 5-325 [[place] 1 each PO Q6HR PRN 10/09/18 10/09/18 Unknown History 5/325] Mirtazapine 7.5 mg PO HS 10/09/18 10/09/18 Unknown History Multivit-Min/FA/Lycopen/Lutein 1 each PO DAILY 10/09/18 10/09/18 Unknown History [Men 50 Plus Multivitamin Tab] Ondansetron [Zofran ODT TAB] 8 mg PO Q8HR PRN 10/09/18 10/09/18 Unknown History Polyethylene Glycol 3350 17 gm PO PRN PRN 10/09/18 10/09/18 Unknown History [Smoothlax] Sennosides [Senna Laxative] 8.6 mg PO PRN PRN 10/09/18 10/09/18 Unknown History Sevelamer Carbonate [Renvela] 800 mg PO TIDWM 10/09/18 10/09/18 Unknown History Venlafaxine [Effexor 25mg tab] 25 mg PO BID 10/09/18 10/09/18 Unknown History predniSONE [Prednisone] 5 mg PO QDAY 10/09/18 10/09/18 Unknown History Active Medications: Generic Name Dose Route Start Last Admin Trade Name Freq PRN Reason Stop Dose Admin Acetaminophen 650 mg 10/09/18 22:03 Tylenol PO Q4H PRN Pain MILD(1-3)/Fever >100.5/DIAZ Acetaminophen 500 mg 10/09/18 22:06 Tylenol PO Q6HR PRN Pain, Moderate (4-6) Bicalutamide 50 mg 10/11/18 10:00 10/12/18 10:08 Casodex PO 50 mg QDAY ENRICO Administration Cholecalciferol 2,000 unit 10/10/18 10:00 10/12/18 10:08 Vitamin D3 PO 2,000 unit QDAY ENRICO Administration Epoetin Víctor 20,000 unit 10/10/18 14:00 10/10/18 17:30 Procrit IV 20,000 unit DAKOTA PRN Administration .anemia Famotidine 10 mg 10/09/18 23:00 10/12/18 10:08 Pepcid PO 10 mg BID ENRICO Administration Ferrous Sulfate 325 mg 10/10/18 10:00 10/12/18 10:08 Feosol PO 325 mg QDAY ENRICO Administration Hydromorphone HCl 0.25 mg 10/09/18 22:03 10/11/18 09:09 Dilaudid IV 0.25 mg Q3H PRN Administration Pain, Moderate (4-6) Ceftriaxone Sodium 1 gm in 50 mls @ 100 mls/hr 10/10/18 10:00 10/12/18 10:08 Rocephin/Ns 1 Gm/50 Ml IV 100 mls/hr Q24HR ENRICO Administration Protocol Sodium Chloride 100 mls @ 999 mls/hr 10/12/18 06:02 Nacl 0.9% IV DAKOTA PRN Hypotension Metoclopramide HCl 10 mg 10/09/18 20:01 10/10/18 18:12 Reglan IV 10 mg Q6H PRN Administration Nausea And Vomiting Mirtazapine 7.5 mg 10/09/18 22:00 10/11/18 22:14 Remeron PO 7.5 mg QHS ENRICO Administration Miscellaneous Medication 1,000 mg 10/10/18 10:00 Abiraterone Acetate (Nf) PO QDAY ENRICO Ondansetron HCl 4 mg 10/09/18 22:03 10/11/18 14:04 Zofran IV 4 mg Q8H PRN Administration Nausea And Vomiting Oxycodone/Acetaminophen 1 tab 10/09/18 22:03 10/11/18 13:20 Percocet 5/325 PO 1 tab Q6H PRN Administration Pain, Moderate (4-6) Prednisone 5 mg 10/10/18 10:00 10/12/18 10:08 Deltasone PO 5 mg QDAY ENR[place] Administration Senna 8.6 mg 10/09/18 22:06 10/10/18 22:32 Senokot PO 8.6 mg DAILY PRN Administration Constipation Sevelamer Carbonate 800 mg 10/10/18 08:00 10/12/18 10:08 Renvela PO 800 mg TIDWM ENRICO Administration Sodium Chloride 10 ml 10/10/18 10:00 10/12/18 10:09 Sodium Chloride Flush Syringe 10 Ml IV 10 ml BID ENRICO Administration Sodium Chloride 10 ml 10/09/18 22:03 10/11/18 14:04 Sodium Chloride Flush Syringe 10 Ml IV 10 ml PRN PRN Administration LINE FLUSH Venlafaxine HCl 25 mg 10/09/18 23:00 10/12/18 10:09 Effexor PO 25 mg BID ENRICO Administration
[2018-10-12] MEDS ORDERED: CATHFLO ONE (14:06)
[2018-10-12] MEDS ORDERED: WATER FOR INJ Sterile (PF) 10 ML ONE (14:07)
[2018-10-12] MEDS ORDERED: CATHFLO IV ONE ×2 (14:08→16:00)
[2018-10-12] MEDS: PROCRIT IV PRN (14:15)
[2018-10-12] MEDS: HumaLOG SUB-Q SCH ×2 (16:04→22:34)
--- NOTE | 2018-10-12 17:53 | Progress Note ---
Assessment and Plan (1) Sepsis Current Visit: Yes Status: Acute Plan to address problem: Sepsis secondary to urinary tract infection SIRS criteria 2 out of 4 Leukocytosis and tachycardia More alert and oriented (2)Acute Encephalopathy Secondary to Uremia and Sepsis improving More Communicative (3)Chronic Pain Pain control with Analgesics (4) End stage renal disease Current Visit: Yes Status: Acute Plan to address problem: End-stage renal disease Access right IJ catheter Receive dialysis on 10/10/2018 on dialysis Repeat dialysis in the a.m. (5) Hypertension Current Visit: Yes Status: Acute Qualifiers: Hypertension type: essential hypertension Qualified Code(s): I10 - Essent ial (primary) hypertension Plan to address problem: Hypertension controlled Monitor blood pressure (6) Anemia Current Visit: Yes Status: Acute Qualifiers: Anemia type: due to chronic kidney disease Plan to address problem: Moderate anemia hemoglobin 7.8 g per DL Etiology likely secondary to chronic kidney disease We'll give Epogen 20,000 units with dialysis d Monitor CBC (7)Nephrostomy tube Urology consult appreciated (8)DVT Prophylaxis On Heparin and GI prophylaxis Subjective Date of service: 10/12/18 Principal diagnosis: end-stage renal disease,Sepsis Interval history: Afebrile Objective - Constitutional Vitals: Vital Signs - 12hr 10/12/18 10/12/18 10/12/18 07:47 10:00 11:10 Temperature 99.1 F 98.2 F Pulse Rate 104 H 104 H Respiratory 20 16 Rate Blood Pressure 126/79 138/71 O2 Sat by Pulse 100 100 Oximetry 10/12/18 10/12/18 10/12/18 11:15 11:30 11:45 Temperature Pulse Rate 101 H 104 H 105 H Respiratory Rate Blood Pressure 132/70 148/65 104/60 O2 Sat by Pulse Oximetry 10/12/18 10/12/18 10/12/18 12:00 12:15 12:30 Temperature Pulse Rate 108 H 100 H 103 H Respiratory Rate Blood Pressure 96/65 76/48 111/63 O2 Sat by Pulse Oximetry 10/12/18 10/12/18 10/12/18 12:45 13:00 13:15 Temperature Pulse Rate 101 H 101 H 83 Respiratory Rate Blood Pressure 123/69 113/62 120/64 O2 Sat by Pulse Oximetry 10/12/18 10/12/18 13:30 13:45 Temperature 98.2 F Pulse Rate 104 H 102 H Respiratory 16 Rate Blood Pressure 120/66 124/61 O2 Sat by Pulse Oximetry General appearance: Present: no acute distress, well-nourished - EENT Eyes: PERRL, EOM intact ENT: hearing intact, clear oral mucosa Ears: bilateral: normal - Neck Neck: supple, normal ROM - Respiratory Respiratory effort: normal Respiratory: bilateral: CTA - Breasts Breasts: normal - Cardiovascular Rhythm: regular Heart Sounds: Present: S1 & S2. Absent: gallop, rub Extremities: pulses intact, No edema, normal color, Full ROM - Gastrointestinal General gastrointestinal: Present: soft, non-tender, non-distended, normal bowel sounds - Genitourinary Male genitourinary: normal - Integumentary Integumentary: clear, warm, dry - Musculoskeletal Musculoskeletal: 1, strength equal bilaterally - Neurologic Neurologic: moves all extremities - Psychiatric Psychiatric: memory intact, appropriate mood/affect, intact judgment & insight - Labs CBC & Chem 7: 10/12/18 04:36 10/12/18 04:36 Labs: Abnormal lab results 10/11/18 10/11/18 10/12/18 Range/Units 16:42 22:24 04:36 WBC 16.8 H (4.5-11.0) K/mm3 RBC 2.41 L (3.65-5.03) M/mm3 Hgb 7.3 L (11.8-15.2) gm/dl Hct 21.9 L (35.5-45.6) % Seg Neuts % (Manual) 82.0 H (40.0-70.0) % Lymphocytes % (Manual) 6.0 L (13.4-35.0) % Seg Neutrophils # Man 13.8 H (1.8-7.7) K/mm3 Lymphocytes # (Manual) 1.0 L (1.2-5.4) K/mm3 Potassium (3.6-5.0) mmol/L Chloride (98-107) mmol/L BUN (9-20) mg/dL Creatinine (0.8-1.5) mg/dL Glucose (75-100) mg/dL POC Glucose 321 H 270 H (70-105) 10/12/18 10/12/18 10/12/18 Range/Units 04:36 07:39 15:42 WBC (4.5-11.0) K/mm3 RBC (3.65-5.03) M/mm3 Hgb (11.8-15.2) gm/dl Hct (35.5-45.6) % Seg Neuts % (Manual) (40.0-70.0) % Lymphocytes % (Manual) (13.4-35.0) % Seg Neutrophils # Man (1.8-7.7) K/mm3 Lymphocytes # (Manual) (1.2-5.4) K/mm3 Potassium 3.1 L (3.6-5.0) mmol/L Chloride 94.4 L (98-107) mmol/L BUN 38 H (9-20) mg/dL Creatinine 7.4 H (0.8-1.5) mg/dL Glucose 374 H (75-100) mg/dL POC Glucose 352 H 354 H (70-105)
[2018-10-12] MEDS: REMERON PO SCH (22:33)
[2018-10-13] MEDS: HumaLOG SUB-Q SCH ×4 (08:45→23:27)
[2018-10-13] MEDS: RENVELA PO SCH ×3 (08:46→18:22)
[2018-10-13] MEDS: CASODEX PO SCH ×2 (08:47→10:00)
[2018-10-13] MEDS: VITAMIN D3 PO SCH ×2 (08:49→10:00)
[2018-10-13] MEDS: FEOSOL PO SCH ×2 (08:49→10:00)
[2018-10-13] MEDS: EFFEXOR PO SCH ×3 (08:50→21:46)
[2018-10-13] MEDS: PEPCID PO SCH ×3 (08:50→21:45)
[2018-10-13] MEDS: SODIUM CHLORIDE FLUSH SYRINGE 10 ML IV SCH ×3 (08:51→22:20)
[2018-10-13] MEDS: DELTASONE PO SCH ×2 (08:51→10:00)
[2018-10-13] MEDS: ROCEPHIN/NS 1 GM/50 ML 1 GM/50 ML BAG IV SCH ×2 (08:51→10:00)
[2018-10-13] MEDS ORDERED: NACL 0.9 (PRIMING MACHINE ONLY DIALYSIS) MC ONE ×2 (11:21→19:15)
[2018-10-13] MEDS: PROCRIT IV PRN (11:48)
--- NOTE | 2018-10-13 15:51 | Progress Note ---
Assessment and Plan (1) Sepsis Current Visit: Yes Status: Acute Plan to address problem: Sepsis secondary to urinary tract infection SIRS criteria 2 out of 4 Leukocytosis and tachycardia More alert and oriented (2)Acute Encephalopathy Secondary to Uremia and Sepsis improving More Communicative (3)Chronic Pain Pain control with Analgesics (4) End stage renal disease Current Visit: Yes Status: Acute Plan to address problem: End-stage renal disease Access right IJ catheter Receive dialysis on 10/10/2018 on dialysis Repeat dialysis in the a.m. (5) Hypertension Current Visit: Yes Status: Acute Qualifiers: Hypertension type: essential hypertension Qualified Code(s): I10 - Essent ial (primary) hypertension Plan to address problem: Hypertension controlled Monitor blood pressure (6) Anemia Current Visit: Yes Status: Acute Qualifiers: Anemia type: due to chronic kidney disease Plan to address problem: Moderate anemia hemoglobin 7.8 g per DL Etiology likely secondary to chronic kidney disease We'll give Epogen 20,000 units with dialysis d Monitor CBC (7)Nephrostomy tube Urology consult appreciated (8)DVT Prophylaxis On Heparin and GI prophylaxis (9 )MRSA in Nares Bacitracin ointment to nares ID consult Isolation Subjective Date of service: 10/13/18 Principal diagnosis: end-stage renal disease,Sepsis Interval history: Afebrile MRSA in nares positive Objective - Constitutional Vitals: Vital Signs - 12hr 10/13/18 10/13/18 10/13/18 07:36 08:01 08:45 Temperature 99.1 F Pulse Rate 93 H Respiratory 18 Rate Blood Pressure 125/58 O2 Sat by Pulse 100 100 Oximetry 10/13/18 10/13/18 10/13/18 09:45 10:00 10:15 Temperature 98.3 F Pulse Rate 98 H 94 H 96 H Respiratory 18 Rate Blood Pressure 109/70 111/63 107/63 O2 Sat by Pulse Oximetry 10/13/18 10/13/18 10/13/18 10:30 10:45 11:00 Temperature Pulse Rate 67 96 H 99 H Respiratory Rate Blood Pressure 108/62 101/58 104/63 O2 Sat by Pulse Oximetry 10/13/18 10/13/18 11:15 11:30 Temperature Pulse Rate 98 H 103 H Respiratory Rate Blood Pressure 99/64 114/51 O2 Sat by Pulse Oximetry General appearance: Present: no acute distress, well-nourished - EENT Eyes: PERRL, EOM intact ENT: hearing intact, clear oral mucosa Ears: bilateral: normal - Neck Neck: supple, normal ROM - Respiratory Respiratory effort: normal Respiratory: bilateral: CTA - Breasts Breasts: normal - Cardiovascular Rhythm: regular Heart Sounds: Present: S1 & S2. Absent: gallop, rub Extremities: pulses intact, No edema, normal color, Full ROM - Gastrointestinal General gastrointestinal: Present: soft, non-tender, non-distended, normal bowel sounds, other (Nephrostomy tube in place--slighly bloody drainage) Rectal Exam: deferred - Genitourinary Male genitourinary: normal - Integumentary Integumentary: clear, warm, dry - Musculoskeletal Musculoskeletal: 1, strength equal bilaterally - Neurologic Neurologic: moves all extremities - Psychiatric Psychiatric: memory intact, appropriate mood/affect, intact judgment & insight - Labs CBC & Chem 7: 10/12/18 04:36 10/12/18 04:36 Labs: Abnormal lab results 10/12/18 10/12/18 10/13/18 Range/Units 18:02 22:11 07:42 POC Glucose 247 H 158 H 225 H (70-105)
[2018-10-13] MEDS ORDERED: VANCOMYCIN PHARMACY TO DOSE IV SCH (16:00)
[2018-10-13] MEDS ORDERED: VANCOMYCIN 1,500 MG in NACL 0.9% 500 ML 500 ML IV ONE (17:00)
--- NOTE | 2018-10-13 17:40 | Progress Note ---
Assessment and Plan Assessment: * End stage renal disease on IHD * Sepsis * Altered mental status * Prostate CA s/p percutaneous nephrostomy tubes * Hypertension * Type II DM * Anemia secondary to ESRD * Secondary hyperparathyroidism Plan: * Continue HD MWF * UF as tolerated * Empiric abx per primary team - blood cx NGTD * Note ID consultation requested by primary team * Urology recommendations noted * Renal diet * Epogen TIW prn Subjective Date of service: 10/13/18 Principal diagnosis: end-stage renal disease,Sepsis Interval history: No acute events overnight Objective - Vital Signs Vital signs: Vital Signs - 12hr 10/13/18 10/13/18 10/13/18 07:36 08:01 08:45 Temperature 99.1 F Pulse Rate 93 H Respiratory 18 Rate Blood Pressure 125/58 O2 Sat by Pulse 100 100 Oximetry 10/13/18 10/13/18 10/13/18 09:45 10:00 10:15 Temperature 98.3 F Pulse Rate 98 H 94 H 96 H Respiratory 18 Rate Blood Pressure 109/70 111/63 107/63 O2 Sat by Pulse Oximetry 10/13/18 10/13/18 10/13/18 10:30 10:45 11:00 Temperature Pulse Rate 67 96 H 99 H Respiratory Rate Blood Pressure 108/62 101/58 104/63 O2 Sat by Pulse Oximetry 10/13/18 10/13/18 10/13/18 11:15 11:30 15:20 Temperature 99.4 F Pulse Rate 98 H 103 H Respiratory 20 Rate Blood Pressure 99/64 114/51 107/64 O2 Sat by Pulse Oximetry - General Appearance General appearance: frail EENT: ATNC Respiratory: Present: Clear to Ascultation Cardiology: regular, S1S2 Gastrointestinal: normal, no tenderness, no distended Integumentary: no rash Musculoskeletal: other (no edema) Psychiatric: cooperative - Lab 10/12/18 04:36 10/12/18 04:36 Most recent lab results Calcium 10.0 mg/dL (8.4-10.2) 10/12/18 04:36 Medications & Allergies - Medications Allergies/Adverse Reactions: Allergies No Known Allergies Allergy (Unverified 10/09/18 11:11) Home Medications: Home Medications Medication Instructions Recorded Confirmed Last Taken Type Abiraterone Acetate (Nf) [Zytiga 1,000 mg PO QDAY 10/09/18 10/09/18 Unknown History (Nf)] Acetaminophen [Tylenol] 500 mg PO Q6HR PRN 10/09/18 10/09/18 Unknown History Cholecalciferol Vit D3 [Vitamin D3 2,000 unit PO QDAY 10/09/18 10/09/18 Unknown History 1,000 UNIT TAB] Ferrous Sulfate [Iron] 325 mg PO QDAY 10/09/18 10/09/18 Unknown History HYDROcodone/APAP 5-325 [[place] 1 each PO Q6HR PRN 10/09/18 10/09/18 Unknown History 5/325] Mirtazapine 7.5 mg PO HS 10/09/18 10/09/18 Unknown History Multivit-Min/FA/Lycopen/Lutein 1 each PO DAILY 10/09/18 10/09/18 Unknown History [Men 50 Plus Multivitamin Tab] Ondansetron [Zofran ODT TAB] 8 mg PO Q8HR PRN 10/09/18 10/09/18 Unknown History Polyethylene Glycol 3350 17 gm PO PRN PRN 10/09/18 10/09/18 Unknown History [Smoothlax] Sennosides [Senna Laxative] 8.6 mg PO PRN PRN 10/09/18 10/09/18 Unknown History Sevelamer Carbonate [Renvela] 800 mg PO TIDWM 10/09/18 10/09/18 Unknown History Venlafaxine [Effexor 25mg tab] 25 mg PO BID 10/09/18 10/09/18 Unknown History predniSONE [Prednisone] 5 mg PO QDAY 10/09/18 10/09/18 Unknown History Active Medications: Generic Name Dose Route Start Last Admin Trade Name Freq PRN Reason Stop Dose Admin Acetaminophen 650 mg 10/09/18 22:03 Tylenol PO Q4H PRN Pain MILD(1-3)/Fever >100.5/DIAZ Acetaminophen 500 mg 10/09/18 22:06 Tylenol PO Q6HR PRN Pain, Moderate (4-6) Bacitracin 1 applic 10/13/18 16:00 Antibiotic Oint TP BID [facility] Bicalutamide 50 mg 10/11/18 10:00 10/13/18 10:00 Casodex PO Not Given QDAY [facility] Cholecalciferol 2,000 unit 10/10/18 10:00 10/13/18 10:00 Vitamin D3 PO Not Given QDAY [facility] Epoetin Víctor 20,000 unit 10/10/18 14:00 10/13/18 11:48 Procrit IV 20,000 unit [place] PRN Administration .anemia Famotidine 10 mg 10/09/18 23:00 10/13/18 10:00 Pepcid PO Not Given BID [facility] Ferrous Sulfate 325 mg 10/10/18 10:00 10/13/18 10:00 Feosol PO Not Given QDAY [facility] Heparin Sodium (Porcine) 5,000 unit 10/13/18 16:00 Heparin SUB-Q Q12HR [facility] Hydromorphone HCl 0.25 mg 10/09/18 22:03 10/11/18 09:09 Dilaudid IV 0.25 mg Q3H PRN Administration Pain, Moderate (4-6) Ceftriaxone Sodium 1 gm in 50 mls @ 100 mls/hr 10/10/18 10:00 10/13/18 10:00 Rocephin/Ns 1 Gm/50 Ml IV Not Given Q24HR [facility] Protocol Sodium Chloride 100 mls @ 999 mls/hr 10/12/18 06:02 Nacl 0.9% IV [place] PRN Hypotension Vancomycin HCl 1,500 mg/ 530 mls @ 333.333 mls/hr 10/13/18 17:00 Sodium Chloride IV 10/13/18 18:35 ONCE ONE Insulin Human Lispro 0 unit 10/12/18 16:30 10/13/18 11:30 Humalog SUB-Q Not Given ACHS [facility] Protocol Metoclopramide HCl 10 mg 10/09/18 20:01 10/10/18 18:12 Reglan IV 10 mg Q6H PRN Administration Nausea And Vomiting Mirtazapine 7.5 mg 10/09/18 22:00 10/12/18 22:33 Remeron PO 7.5 mg QHS [facility] Administration Miscellaneous Medication 1,000 mg 10/10/18 10:00 Abiraterone Acetate (Nf) PO QDAY [facility] Ondansetron HCl 4 mg 10/09/18 22:03 10/11/18 14:04 Zofran IV 4 mg Q8H PRN Administration Nausea And Vomiting Oxycodone/Acetaminophen 1 tab 10/09/18 22:03 10/11/18 13:20 Percocet 5/325 PO 1 tab Q6H PRN Administration Pain, Moderate (4-6) Prednisone 5 mg 10/10/18 10:00 10/13/18 10:00 Deltasone PO Not Given QDAY [place] Senna 8.6 mg 10/09/18 22:06 10/10/18 22:32 Senokot PO 8.6 mg DAILY PRN Administration Constipation Sevelamer Carbonate 800 mg 10/10/18 08:00 10/13/18 12:00 Renvela PO Not Given TIDWM [place] Sodium Chloride 10 ml 10/10/18 10:00 10/13/18 10:00 Sodium Chloride Flush Syringe 10 Ml IV Not Given BID [place] Sodium Chloride 10 ml 10/09/18 22:03 10/11/18 14:04 Sodium Chloride Flush Syringe 10 Ml IV 10 ml PRN PRN Administration LINE FLUSH Venlafaxine HCl 25 mg 10/09/18 23:00 10/13/18 10:00 Effexor PO Not Given BID [place]
[2018-10-13] MEDS: HEPARIN SUB-Q SCH ×2 (18:22→21:59)
[2018-10-13] MEDS: REMERON PO SCH (21:46)
[2018-10-13] MEDS: ANTIBIOTIC OINT TP SCH ×2 (21:58→22:23)
[2018-10-14] MEDS: HumaLOG SUB-Q SCH ×4 (08:25→23:17)
[2018-10-14] MEDS: RENVELA PO SCH ×3 (08:35→17:05)
[2018-10-14] MEDS: DELTASONE PO SCH (10:07)
[2018-10-14] MEDS: PEPCID PO SCH ×2 (10:07→22:08)
[2018-10-14] MEDS: VITAMIN D3 PO SCH (10:07)
[2018-10-14] MEDS: FEOSOL PO SCH (10:08)
[2018-10-14] MEDS: CASODEX PO SCH (10:08)
[2018-10-14] MEDS: EFFEXOR PO SCH ×2 (10:08→22:08)
[2018-10-14] MEDS: SODIUM CHLORIDE FLUSH SYRINGE 10 ML IV SCH ×2 (10:09→22:10)
[2018-10-14] MEDS: ROCEPHIN/NS 1 GM/50 ML 1 GM/50 ML BAG IV SCH (10:10)
[2018-10-14] MEDS: HEPARIN SUB-Q SCH ×2 (10:10→22:14)
[2018-10-14] MEDS: ANTIBIOTIC OINT TP SCH ×3 (10:17→22:24)
--- NOTE | 2018-10-14 11:40 | Progress Note ---
Assessment and Plan Assessment and plan: -- Sepsis Sepsis secondary to urinary tract infection SIRS criteria 2 out of 4 Leukocytosis and tachycardia More alert and oriented --Acute Encephalopathy Secondary to Uremia and Sepsis improving More Communicative --Chronic Pain Pain control with Analgesics -- End stage renal disease End-stage renal disease Access right IJ catheter Receive dialysis on 10/10/2018 on dialysis Repeat dialysis in the a.m. -- Hypertension Moderate control, continue current antihypertensives and when necessary medications -- Anemia Moderate anemia hemoglobin 7.8 g per DL Etiology likely secondary to chronic kidney disease We'll give Epogen 20,000 units with dialysis d Monitor CBC --Nephrostomy tube Urology consult appreciated --MRSA in Nares Contact isolation, bacitracin ointment, ID evaluation if needed --DVT Prophylaxis On Heparin and GI prophylaxis Plan of care reviewed with the patient's nurse History Interval history: Patient seen and examined and medical records reviewed On contact isolation secondary to MRSA nares The patient feels better wants to get up and walk Alert awake oriented, not in acute distress Vital signs reviewed Hospitalist Physical - Constitutional Vitals: Temp Pulse Resp BP Pulse Ox 99.3 F 102 H 18 121/64 96 10/14/18 08:07 10/14/18 08:07 10/14/18 08:07 10/14/18 08:07 10/14/18 08:07 General appearance: Present: no acute distress, well-nourished - EENT Eyes: Present: PERRL, EOM intact - Neck Neck: Present: supple, normal ROM - Respiratory Respiratory effort: normal Respiratory: bilateral: diminished, negative: rales, rhonchi, wheezing - Cardiovascular Rhythm: regular Heart Sounds: Present: S1 & S2 - Extremities Extremities: no ischemia, No edema - Abdominal General gastrointestinal: soft, non-tender, non-distended, normal bowel sounds, other (nephrostomy tube in place) - Integumentary Integumentary: Present: clear, warm - Psychiatric Psychiatric: appropriate mood/affect, cooperative - Neurologic Neurologic: moves all extremities Results - Labs CBC & Chem 7: 10/12/18 04:36 10/12/18 04:36 Labs: Laboratory Last Values WBC 16.8 K/mm3 (4.5-11.0) H 10/12/18 04:36 RBC 2.41 M/mm3 (3.65-5.03) L 10/12/18 04:36 Hgb 7.3 gm/dl (11.8-15.2) L 10/12/18 04:36 Hct 21.9 % (35.5-45.6) L 10/12/18 04:36 MCV 91 fl (84-94) 10/12/18 04:36 MCH 31 pg (28-32) 10/12/18 04:36 MCHC 34 % (32-34) 10/12/18 04:36 RDW 14.7 % (13.2-15.2) 10/12/18 04:36 Plt Count 339 K/mm3 (140-440) 10/12/18 04:36 Lymph % (Auto) Program Management Analyst 10/09/18 10:41 [place] % (Auto) Program Management Analyst 10/09/18 10:41 Eos % (Auto) Program Management Analyst 10/09/18 10:41 Baso % (Auto) Program Management Analyst 10/09/18 10:41 Lymph # Program Management Analyst 10/09/18 10:41 [place] # Program Management Analyst 10/09/18 10:41 Eos # Program Management Analyst 10/09/18 10:41 Baso # Program Management Analyst 10/09/18 10:41 Add Manual Diff Complete 10/12/18 04:36 Total Counted 100 10/12/18 04:36 Seg Neutrophils % Program Management Analyst 10/09/18 10:41 Seg Neuts % (Manual) 82.0 % (40.0-70.0) H 10/12/18 04:36 Band Neutrophils % 6.0 % 10/12/18 04:36 Lymphocytes % (Manual) 6.0 % (13.4-35.0) L 10/12/18 04:36 Reactive Lymphs % (Man) 0 % 10/12/18 04:36 Monocytes % (Manual) 4.0 % (0.0-7.3) 10/12/18 04:36 Eosinophils % (Manual) 0 % (0.0-4.3) 10/12/18 04:36 Basophils % (Manual) 0 % (0.0-1.8) 10/12/18 04:36 Metamyelocytes % 0 % 10/12/18 04:36 Myelocytes % 2.0 % 10/12/18 04:36 Promyelocytes % 0 % 10/12/18 04:36 Blast Cells % 0 % 10/12/18 04:36 Nucleated RBC % Not Reportable 10/12/18 04:36 Seg Neutrophils # Program Management Analyst 10/09/18 10:41 Seg Neutrophils # Man 13.8 K/mm3 (1.8-7.7) H 10/12/18 04:36 Band Neutrophils # 1.0 K/mm3 10/12/18 04:36 Lymphocytes # (Manual) 1.0 K/mm3 (1.2-5.4) L 10/12/18 04:36 Abs React Lymphs (Man) 0.0 K/mm3 10/12/18 04:36 Monocytes # (Manual) 0.7 K/mm3 (0.0-0.8) 10/12/18 04:36 Eosinophils # (Manual) 0.0 K/mm3 (0.0-0.4) 10/12/18 04:36 Basophils # (Manual) 0.0 K/mm3 (0.0-0.1) 10/12/18 04:36 Metamyelocytes # 0.0 K/mm3 10/12/18 04:36 Myelocytes # 0.3 K/mm3 10/12/18 04:36 Promyelocytes # 0.0 K/mm3 10/12/18 04:36 Blast Cells # 0.0 K/mm3 10/12/18 04:36 WBC Morphology Not Reportable 10/12/18 04:36 Hypersegmented Neuts Not Reportable 10/12/18 04:36 Hyposegmented Neuts Not Reportable 10/12/18 04:36 Hypogranular Neuts Not Reportable 10/12/18 04:36 Smudge Cells Not Reportable 10/12/18 04:36 Toxic Granulation Not Reportable 10/12/18 04:36 Toxic Vacuolation Not Reportable 10/12/18 04:36 Dohle Bodies Not Reportable 10/12/18 04:36 Pelger-Huet Anomaly Not Reportable 10/12/18 04:36 Bridget Rods Not Reportable 10/12/18 04:36 Platelet Estimate Appears normal 10/12/18 04:36 Clumped Platelets Not Reportable 10/12/18 04:36 Plt Clumps, EDTA Not Reportable 10/12/18 04:36 Large Platelets Not Reportable 10/12/18 04:36 Giant Platelets Not Reportable 10/12/18 04:36 Platelet Satelliting Not Reportable 10/12/18 04:36 Plt Morphology Comment Not Reportable 10/12/18 04:36 RBC Morphology Not Reportable 10/12/18 04:36 Dimorphic RBCs Not Reportable 10/12/18 04:36 Polychromasia Not Reportable 10/12/18 04:36 Hypochromasia Few 10/12/18 04:36 Poikilocytosis Not Reportable 10/12/18 04:36 Anisocytosis Not Reportable 10/12/18 04:36 Microcytosis Not Reportable 10/12/18 04:36 Macrocytosis Not Reportable 10/12/18 04:36 Spherocytes Not Reportable 10/12/18 04:36 Pappenheimer Bodies Not Reportable 10/12/18 04:36 Sickle Cells Not Reportable 10/12/18 04:36 Target Cells Not Reportable 10/12/18 04:36 Tear Drop Cells Not Reportable 10/12/18 04:36 Ovalocytes Not Reportable 10/12/18 04:36 Helmet Cells Not Reportable 10/12/18 04:36 [place] Bodies Not Reportable 10/12/18 04:36 [place] Rings Not Reportable 10/12/18 04:36 Tushar Cells Not Reportable 10/12/18 04:36 Bite Cells Not Reportable 10/12/18 04:36 Crenated Cell Not Reportable 10/12/18 04:36 Elliptocytes Not Reportable 10/12/18 04:36 Acanthocytes (Spur) Not Reportable 10/12/18 04:36 Rouleaux Not Reportable 10/12/18 04:36 Hemoglobin C Crystals Not Reportable 10/12/18 04:36 Schistocytes Not Reportable 10/12/18 04:36 Malaria parasites Not Reportable 10/12/18 04:36 Oswald Bodies Not Reportable 10/12/18 04:36 Hem Pathologist Commnt No 10/12/18 04:36 PT 16.2 Sec. (12.2-14.9) H 10/09/18 10:41 INR 1.22 (0.87-1.13) H 10/09/18 10:41 APTT 30.9 Sec. (24.2-36.6) 10/09/18 10:41 Sodium 140 mmol/L (137-145) 10/12/18 04:36 Potassium 3.1 mmol/L (3.6-5.0) L 10/12/18 04:36 Chloride 94.4 mmol/L (98-107) L 10/12/18 04:36 Carbon Dioxide 26 mmol/L (22-30) D 10/12/18 04:36 Anion Gap 23 mmol/L 10/12/18 04:36 BUN 38 mg/dL (9-20) H 10/12/18 04:36 Creatinine 7.4 mg/dL (0.8-1.5) H 10/12/18 04:36 Estimated GFR 9 ml/min 10/12/18 04:36 BUN/Creatinine Ratio 5 % 10/12/18 04:36 Glucose 374 mg/dL (75-100) H 10/12/18 04:36 POC Glucose 246 (70-105) H 10/14/18 11:37 Hemoglobin A1c 6.0 % (4-6) 10/09/18 22:51 Lactic Acid 1.00 mmol/L (0.7-2.0) 10/10/18 06:02 Calcium 10.0 mg/dL (8.4-10.2) 10/12/18 04:36 Total Bilirubin 0.60 mg/dL (0.1-1.2) 10/10/18 06:02 Direct Bilirubin 0.5 mg/dL (0-0.2) H 10/09/18 10:41 Indirect Bilirubin 0.4 mg/dL 10/09/18 10:41 AST 18 units/L (5-40) 10/10/18 06:02 ALT 13 units/L (7-56) 10/10/18 06:02 Alkaline Phosphatase 181 units/L (35-129) H 10/10/18 06:02 Ammonia 33.0 umol/L (25-60) 10/09/18 10:41 Troponin T 0.233 ng/mL (0.00-0.029) H* 10/09/18 10:41 Total Protein 6.4 g/dL (6.3-8.2) 10/10/18 06:02 Albumin 2.7 g/dL (3.9-5) L 10/10/18 06:02 Albumin/Globulin Ratio 0.7 % 10/10/18 06:02 Triglycerides 274 mg/dL (2-149) H 10/09/18 10:41 Cholesterol 176 mg/dL (50-199) 10/09/18 10:41 LDL Cholesterol Direct 61 mg/dL (50-130) 10/09/18 10:41 HDL Cholesterol 28 mg/dL (40-59) L 10/09/18 10:41 Cholesterol/HDL Ratio 6.28 % 10/09/18 10:41 Prostate Specific Ag 2660.00 ng/mL (0.00-4.00) H 10/10/18 11:01 Urine Color [place]a (Yellow) 10/09/18 11:39 Urine Turbidity Turbid (Clear) 10/09/18 11:39 Urine pH Program Management Analyst 10/09/18 11:39 Ur Specific [place] Program Management Analyst 10/09/18 11:39 Urine Protein Color interference mg/dL (Negative) 10/09/18 11:39 Urine Glucose (UA) Color interference mg/dL (Negative) 10/09/18 11:39 Urine Ketones Color interference mg/dL (Negative) 10/09/18 11:39 Urine Blood Color interference (Negative) 10/09/18 11:39 Urine Nitrite Color interference (Negative) 10/09/18 11:39 Urine Bilirubin Color interference (Negative) 10/09/18 11:39 Urine Ictotest Not Reportable 10/09/18 11:39 Urine Urobilinogen Program Management Analyst 10/09/18 11:39 Ur Leukocyte Esterase Color interference (Negative) 10/09/18 11:39 Urine WBC (Auto) > 182.0 /HPF (0.0-6.0) H 10/09/18 11:39 Urine RBC (Auto) > 182.0 /HPF (0.0-6.0) 10/09/18 11:39 Urine Bacteria (Auto) 4+ /HPF (Negative) 10/09/18 11:39 Hepatitis A IgM Ab Non-reactive (NonReactive) 10/10/18 18:00 Hep Bs Antigen Non-reactive (Negative) 10/10/18 18:00 Hep B Core IgM Ab Non-reactive (NonReactive) 10/10/18 18:00 Hepatitis C Antibody Non-reactive (NonReactive) 10/10/18 18:00 Active Medications - Current Medications Current Medications: Generic Name Dose Route Start Last Admin Trade Name Freq PRN Reason Stop Dose Admin Acetaminophen 650 mg 10/09/18 22:03 Tylenol PO Q4H PRN Pain MILD(1-3)/Fever >100.5/DIAZ Acetaminophen 500 mg 10/09/18 22:06 Tylenol PO Q6HR PRN Pain, Moderate (4-6) Bacitracin 1 applic 10/13/18 16:00 10/14/18 10:17 Antibiotic Oint TP 1 applic BID [facility] Administration Bicalutamide 50 mg 10/11/18 10:00 10/14/18 10:08 Casodex PO 50 mg QDAY [facility] Administration Cholecalciferol 2,000 unit 10/10/18 10:00 10/14/18 10:07 Vitamin D3 PO 2,000 unit QDAY [facility] Administration Epoetin Víctor 20,000 unit 10/10/18 14:00 10/13/18 11:48 Procrit IV 20,000 unit [place] PRN Administration .anemia Famotidine 10 mg 10/09/18 23:00 10/14/18 10:07 Pepcid PO 10 mg BID [place] Administration Ferrous Sulfate 325 mg 10/10/18 10:00 10/14/18 10:08 Feosol PO 325 mg QDAY [facility] Administration Heparin Sodium (Porcine) 5,000 unit 10/13/18 16:00 10/14/18 10:10 Heparin SUB-Q 5,000 unit Q12HR [facility] Administration Hydromorphone HCl 0.25 mg 10/09/18 22:03 10/11/18 09:09 Dilaudid IV 0.25 mg Q3H PRN Administration Pain, Moderate (4-6) Ceftriaxone Sodium 1 gm in 50 mls @ 100 mls/hr 10/10/18 10:00 10/14/18 10:10 Rocephin/Ns 1 Gm/50 Ml IV 100 mls/hr Q24HR [facility] Administration Protocol Sodium Chloride 100 mls @ 999 mls/hr 10/12/18 06:02 Nacl 0.9% IV [place] PRN Hypotension Insulin Human Lispro 0 unit 10/12/18 16:30 10/14/18 08:25 Humalog SUB-Q 6 unit ACHS [facility] Administration Protocol Metoclopramide HCl 10 mg 10/09/18 20:01 10/10/18 18:12 Reglan IV 10 mg Q6H PRN Administration Nausea And Vomiting Mirtazapine 7.5 mg 10/09/18 22:00 10/13/18 21:46 Remeron PO 7.5 mg QHS [facility] Administration Miscellaneous Medication 1,000 mg 10/10/18 10:00 Abiraterone Acetate (Nf) PO QDAY [facility] Ondansetron HCl 4 mg 10/09/18 22:03 10/11/18 14:04 Zofran IV 4 mg Q8H PRN Administration Nausea And Vomiting Oxycodone/Acetaminophen 1 tab 10/09/18 22:03 10/11/18 13:20 Percocet 5/325 PO 1 tab Q6H PRN Administration Pain, Moderate (4-6) Prednisone 5 mg 10/10/18 10:00 10/14/18 10:07 Deltasone PO 5 mg QDAY [place] Administration Senna 8.6 mg 10/09/18 22:06 10/10/18 22:32 Senokot PO 8.6 mg DAILY PRN Administration Constipation Sevelamer Carbonate 800 mg 10/10/18 08:00 10/14/18 08:35 Renvela PO 800 mg TIDWM [place] Administration Sodium Chloride 10 ml 10/10/18 10:00 10/14/18 10:09 Sodium Chloride Flush Syringe 10 Ml IV 10 ml BID [place] Administration Sodium Chloride 10 ml 10/09/18 22:03 10/11/18 14:04 Sodium Chloride Flush Syringe 10 Ml IV 10 ml PRN PRN Administration LINE FLUSH Venlafaxine HCl 25 mg 10/09/18 23:00 10/14/18 10:08 Effexor PO 25 mg BID [place] Administration
--- NOTE | 2018-10-14 13:20 | Progress Note ---
Assessment and Plan Assessment: * End stage renal disease on IHD * Sepsis * Altered mental status * Prostate CA s/p percutaneous nephrostomy tubes * Hypertension * Type II DM * Anemia secondary to ESRD * Secondary hyperparathyroidism * MRSA colonization Plan: * Continue HD MWF * UF as tolerated * Empiric abx per primary team - blood cx NGTD * Note ID consultation requested by primary team * Urology recommendations noted * Renal diet * Epogen TIW prn * Per RN, patient on droplet precautions for +MRSA nares; instructed to d/c droplet precautions and start contact isolation Subjective Date of service: 10/14/18 Principal diagnosis: end-stage renal disease,Sepsis Interval history: No acute events overnight. Objective - Vital Signs Vital signs: Vital Signs - 12hr 10/14/18 10/14/18 10/14/18 03:53 08:03 08:07 Temperature 98.7 F 99.3 F Pulse Rate 86 102 H Respiratory 18 18 Rate Blood Pressure 121/64 Blood Pressure 111/66 [Right] O2 Sat by Pulse 100 96 96 Oximetry 10/14/18 10:00 Temperature Pulse Rate Respiratory 18 Rate Blood Pressure Blood Pressure [Right] O2 Sat by Pulse 96 Oximetry - General Appearance General appearance: frail EENT: ATNC Respiratory: Present: Clear to Ascultation Cardiology: regular, S1S2 Gastrointestinal: normal, no tenderness, no distended Integumentary: no rash Neurologic: no focal deficit Musculoskeletal: other (no edema) Psychiatric: cooperative - Lab 10/12/18 04:36 10/12/18 04:36 Most recent lab results Calcium 10.0 mg/dL (8.4-10.2) 10/12/18 04:36 Medications & Allergies - Medications Allergies/Adverse Reactions: Allergies No Known Allergies Allergy (Unverified 10/09/18 11:11) Home Medications: Home Medications Medication Instructions Recorded Confirmed Last Taken Type Abiraterone Acetate (Nf) [Zytiga 1,000 mg PO QDAY 10/09/18 10/09/18 Unknown History (Nf)] Acetaminophen [Tylenol] 500 mg PO Q6HR PRN 10/09/18 10/09/18 Unknown History Cholecalciferol Vit D3 [Vitamin D3 2,000 unit PO QDAY 10/09/18 10/09/18 Unknown History 1,000 UNIT TAB] Ferrous Sulfate [Iron] 325 mg PO QDAY 10/09/18 10/09/18 Unknown History HYDROcodone/APAP 5-325 [Cut [place] 1 each PO Q6HR PRN 10/09/18 10/09/18 Unknown History 5/325] Mirtazapine 7.5 mg PO HS 10/09/18 10/09/18 Unknown History Multivit-Min/FA/Lycopen/Lutein 1 each PO DAILY 10/09/18 10/09/18 Unknown History [Men 50 Plus Multivitamin Tab] Ondansetron [Zofran ODT TAB] 8 mg PO Q8HR PRN 10/09/18 10/09/18 Unknown History Polyethylene Glycol 3350 17 gm PO PRN PRN 10/09/18 10/09/18 Unknown History [Smoothlax] Sennosides [Senna Laxative] 8.6 mg PO PRN PRN 10/09/18 10/09/18 Unknown History Sevelamer Carbonate [Renvela] 800 mg PO TIDWM 10/09/18 10/09/18 Unknown History Venlafaxine [Effexor 25mg tab] 25 mg PO BID 10/09/18 10/09/18 Unknown History predniSONE [Prednisone] 5 mg PO QDAY 10/09/18 10/09/18 Unknown History Active Medications: Generic Name Dose Route Start Last Admin Trade Name Freq PRN Reason Stop Dose Admin Acetaminophen 650 mg 10/09/18 22:03 Tylenol PO Q4H PRN Pain MILD(1-3)/Fever >100.5/DIAZ Acetaminophen 500 mg 10/09/18 22:06 Tylenol PO Q6HR PRN Pain, Moderate (4-6) Bacitracin 1 applic 10/13/18 16:00 10/14/18 10:17 Antibiotic Oint TP 1 applic BID [facility] Administration Bicalutamide 50 mg 10/11/18 10:00 10/14/18 10:08 Casodex PO 50 mg QDAY [facility] Administration Cholecalciferol 2,000 unit 10/10/18 10:00 10/14/18 10:07 Vitamin D3 PO 2,000 unit QDAY [facility] Administration Epoetin Víctor 20,000 unit 10/10/18 14:00 10/13/18 11:48 Procrit IV 20,000 unit [place] PRN Administration .anemia Famotidine 10 mg 10/09/18 23:00 10/14/18 10:07 Pepcid PO 10 mg BID [place] Administration Ferrous Sulfate 325 mg 10/10/18 10:00 10/14/18 10:08 Feosol PO 325 mg QDAY [facility] Administration Heparin Sodium (Porcine) 5,000 unit 10/13/18 16:00 10/14/18 10:10 Heparin SUB-Q 5,000 unit Q12HR [facility] Administration Hydromorphone HCl 0.25 mg 10/09/18 22:03 10/11/18 09:09 Dilaudid IV 0.25 mg Q3H PRN Administration Pain, Moderate (4-6) Ceftriaxone Sodium 1 gm in 50 mls @ 100 mls/hr 10/10/18 10:00 10/14/18 10:10 Rocephin/Ns 1 Gm/50 Ml IV 100 mls/hr Q24HR [facility] Administration Protocol Sodium Chloride 100 mls @ 999 mls/hr 10/12/18 06:02 Nacl 0.9% IV [place] PRN Hypotension Insulin Human Lispro 0 unit 10/12/18 16:30 10/14/18 12:00 Humalog SUB-Q 4 unit ACHS [facility] Administration Protocol Metoclopramide HCl 10 mg 10/09/18 20:01 10/10/18 18:12 Reglan IV 10 mg Q6H PRN Administration Nausea And Vomiting Mirtazapine 7.5 mg 10/09/18 22:00 10/13/18 21:46 Remeron PO 7.5 mg QHS [place] Administration Miscellaneous Medication 1,000 mg 10/10/18 10:00 Abiraterone Acetate (Nf) PO QDAY [facility] Ondansetron HCl 4 mg 10/09/18 22:03 10/11/18 14:04 Zofran IV 4 mg Q8H PRN Administration Nausea And Vomiting Oxycodone/Acetaminophen 1 tab 10/09/18 22:03 10/11/18 13:20 Percocet 5/325 PO 1 tab Q6H PRN Administration Pain, Moderate (4-6) Prednisone 5 mg 10/10/18 10:00 10/14/18 10:07 Deltasone PO 5 mg QDAY [facility] Administration Senna 8.6 mg 10/09/18 22:06 10/10/18 22:32 Senokot PO 8.6 mg DAILY PRN Administration Constipation Sevelamer Carbonate 800 mg 10/10/18 08:00 10/14/18 11:59 Renvela PO 800 mg TIDWM ENR[place] Administration Sodium Chloride 10 ml 10/10/18 10:00 10/14/18 10:09 Sodium Chloride Flush Syringe 10 Ml IV 10 ml BID ENRICO Administration Sodium Chloride 10 ml 10/09/18 22:03 10/11/18 14:04 Sodium Chloride Flush Syringe 10 Ml IV 10 ml PRN PRN Administration LINE FLUSH Venlafaxine HCl 25 mg 10/09/18 23:00 10/14/18 10:08 Effexor PO 25 mg BID ENRICO Administration
--- NOTE | 2018-10-14 17:11 | Consultation ---
History of Present Illness - Reason for Consult Consult date: 10/14/18 UTI, positive nasal MRSA Requesting physician: JERMAINE LORENZO - History of Present Illness 63-year-old male with ESRD on hemodialysis, hypertension, diabetes, anemia, history of metastatic prostate cancer for which he recently underwent a R percutaneous nephrostomy due to placement and was started on Casodex, was brought to the emergency room from a [place] [facility] [place] after he became confused and fell. In the ER, he was found to have significant leukocytosis, hemoglobin of 8.2. He was admitted to the hospital with concerns for sepsis possibly related to UTI. He was started on IV ceftriaxone. Infectious diseases was consulted for antibiotic recommendations. Patient was seen at dialysis, denies any complaints. States he doesnt make much urine. Review of Systems: General: no fevers,chills or rigors HEENT: no new visual disturbance Respiratory: No cough, sputum, hemoptysis or shortness of breath Cardiovascular: No chest pain, syncope Gastrointestinal: No nausea, vomiting or diarrhea Genitourinary: No dysuria or hematuria Musculoskeletal: No new or worsening neck pain or back pain Neurologic: No headaches, seizures Hematologic: No easy bruising or bleeding Endocrine: No night sweats or acute weight loss Skin: negative for rash, jaundice Psychiatric: No suicidal or homicidal ideation Past History Past Medical History: dialysis Past Surgical History: Other (nephrostomy) Medications and Allergies Allergies Allergy/AdvReac Type Severity Reaction Status Date / Time No Known Allergies Allergy Unverified 10/09/18 11:11 Home Medications Medication Instructions Recorded Confirmed Last Taken Type Abiraterone Acetate (Nf) [Zytiga 1,000 mg PO QDAY 10/09/18 10/09/18 Unknown History (Nf)] Acetaminophen [Tylenol] 500 mg PO Q6HR PRN 10/09/18 10/09/18 Unknown History Cholecalciferol Vit D3 [Vitamin D3 2,000 unit PO QDAY 10/09/18 10/09/18 Unknown History 1,000 UNIT TAB] Ferrous Sulfate [Iron] 325 mg PO QDAY 10/09/18 10/09/18 Unknown History HYDROcodone/APAP 5-325 [[place] 1 each PO Q6HR PRN 10/09/18 10/09/18 Unknown History 5/325] Mirtazapine 7.5 mg PO HS 10/09/18 10/09/18 Unknown History Multivit-Min/FA/Lycopen/Lutein 1 each PO DAILY 10/09/18 10/09/18 Unknown History [Men 50 Plus Multivitamin Tab] Ondansetron [Zofran ODT TAB] 8 mg PO Q8HR PRN 10/09/18 10/09/18 Unknown History Polyethylene Glycol 3350 17 gm PO PRN PRN 10/09/18 10/09/18 Unknown History [Smoothlax] Sennosides [Senna Laxative] 8.6 mg PO PRN PRN 10/09/18 10/09/18 Unknown History Sevelamer Carbonate [Renvela] 800 mg PO TIDWM 10/09/18 10/09/18 Unknown History Venlafaxine [Effexor 25mg tab] 25 mg PO BID 10/09/18 10/09/18 Unknown History predniSONE [Prednisone] 5 mg PO QDAY 10/09/18 10/09/18 Unknown History Active Meds: Active Medications Acetaminophen (Tylenol) 650 mg PO Q4H PRN PRN Reason: Pain MILD(1-3)/Fever >100.5/DIAZ Acetaminophen (Tylenol) 500 mg PO Q6HR PRN PRN Reason: Pain, Moderate (4-6) Bacitracin (Antibiotic Oint) 1 applic TP BID [facility] Last Admin: 10/14/18 10:17 Dose: 1 applic Documented by: Bicalutamide (Casodex) 50 mg PO QDAY [facility] Last Admin: 10/14/18 10:08 Dose: 50 mg Documented by: Cholecalciferol (Vitamin D3) 2,000 unit PO QDAY [facility] Last Admin: 10/14/18 10:07 Dose: 2,000 unit Documented by: Epoetin Víctor (Procrit) 20,000 unit IV [place] PRN PRN Reason: .anemia Last Admin: 10/13/18 11:48 Dose: 20,000 unit Documented by: Famotidine (Pepcid) 10 mg PO BID [facility] Last Admin: 10/14/18 10:07 Dose: 10 mg Documented by: Ferrous Sulfate (Feosol) 325 mg PO QDAY [facility] Last Admin: 10/14/18 10:08 Dose: 325 mg Documented by: Heparin Sodium (Porcine) (Heparin) 5,000 unit SUB-Q Q12HR [facility] Last Admin: 10/14/18 10:10 Dose: 5,000 unit Documented by: Hydromorphone HCl (Dilaudid) 0.25 mg IV Q3H PRN PRN Reason: Pain, Moderate (4-6) Last Admin: 10/11/18 09:09 Dose: 0.25 mg Documented by: Ceftriaxone Sodium (Rocephin/Ns 1 Gm/50 Ml) 1 gm in 50 mls @ 100 mls/hr IV Q24HR [facility]; Protocol Last Admin: 10/14/18 10:10 Dose: 100 mls/hr Documented by: Sodium Chloride (Nacl 0.9%) 100 mls @ 999 mls/hr IV [place] PRN PRN Reason: Hypotension Insulin Human Lispro (Humalog) 0 unit SUB-Q ACHS [facility]; Protocol Last Admin: 10/14/18 12:00 Dose: 4 unit Documented by: Metoclopramide HCl (Reglan) 10 mg IV Q6H PRN PRN Reason: Nausea And Vomiting Last Admin: 10/10/18 18:12 Dose: 10 mg Documented by: Mirtazapine (Remeron) 7.5 mg PO QHS [facility] Last Admin: 10/13/18 21:46 Dose: 7.5 mg Documented by: Miscellaneous Medication (Abiraterone Acetate (Nf)) 1,000 mg PO QDAY [facility] Ondansetron HCl (Zofran) 4 mg IV Q8H PRN PRN Reason: Nausea And Vomiting Last Admin: 10/11/18 14:04 Dose: 4 mg Documented by: Oxycodone/Acetaminophen (Percocet 5/325) 1 tab PO Q6H PRN PRN Reason: Pain, Moderate (4-6) Last Admin: 10/11/18 13:20 Dose: 1 tab Documented by: Prednisone (Deltasone) 5 mg PO QDAY [facility] Last Admin: 10/14/18 10:07 Dose: 5 mg Documented by: Senna (Senokot) 8.6 mg PO DAILY PRN PRN Reason: Constipation Last Admin: 10/10/18 22:32 Dose: 8.6 mg Documented by: Sevelamer Carbonate (Renvela) 800 mg PO TIDWM [facility] Last Admin: 10/14/18 11:59 Dose: 800 mg Documented by: Sodium Chloride (Sodium Chloride Flush Syringe 10 Ml) 10 ml IV BID [facility] Last Admin: 10/14/18 10:09 Dose: 10 ml Documented by: Sodium Chloride (Sodium Chloride Flush Syringe 10 Ml) 10 ml IV PRN PRN PRN Reason: LINE FLUSH Last Admin: 10/11/18 14:04 Dose: 10 ml Documented by: Venlafaxine HCl (Effexor) 25 mg PO BID [facility] Last Admin: 10/14/18 10:08 Dose: 25 mg Documented by: Physical Examination - Physical Exam Narrative exam: Physical Exam: Constitutional: Alert, cooperative. No acute distress Head, Ears, Nose: Normocephalic, atraumatic. External ears, nose normal Eyes: Conjunctivae/corneas clear. No icterus. No ptosis. Neck: Supple, no meningeal signs Cardiovascular: S1, S2 normal. Respiratory: Good air entry, clear to auscultation bilaterally GI: Soft, non-tender; bowel sounds normal. No peritoneal signs. Right nephrostomy tube +. right upper chest HD cath + Musculoskeletal: No pedal edema, no cyanosis. Skin: No rash or abscess Hem/Lymphatic: No palpable cervical or supraclavicular nodes. No lymphangitis Psych: Mood ok. Affect normal Neurological: Awake, alert, oriented. No gross abnormality - Constitutional Vitals: Vital Signs Temp Pulse Resp BP Pulse Ox 98.7 F 109 H 18 109/60 97 10/14/18 13:30 10/14/18 13:30 10/14/18 13:30 10/14/18 13:30 10/14/18 13:30 Temperature -Last 24 Hours Temperature 98.7 F Temperature 99.3 F Temperature 98.7 F Temperature 99.7 F Results - Labs CBC & Chem 7: 10/12/18 04:36 10/12/18 04:36 Labs: Abnormal lab results 10/13/18 10/14/18 10/14/18 Range/Units 22:34 08:13 11:37 POC Glucose 188 H 273 H 246 H (70-105) - Imaging and Cardiology CT scan - abdomen: report reviewed, image reviewed (CT abdomen showed a large subcapsular hematoma in the right kidney with compression of the right kidney. Right-sided nephrostomy tube and right ureteral stent present. Numerous enlarged lymph nodes present throughout the chest, abdomen and pelvis. The metastatic bony lesions identified concerning for possible metastatic disease. Trace bilateral pleural effusions seen.) Assessment and Plan Microbiology: 10/09/2018 blood culture: No growth 10/09/2018 MRSA nares culture: Positive 10/11/2018 urine culture: No growth A/P 63-year-old male with ESRD on hemodialysis, hypertension, diabetes, anemia, history of metastatic prostate cancer for which he recently underwent a percutaneous nephrostomy due to placement and was started on Casodex, was brought to the emergency room from a [place] [facility] [place] after he became confused and fell: 1) Concern for sepsis: Patient with leukocytosis however no significant fevers. Leukocytosis could be reactive due to the large right-sided subcapsular hematoma compressing the right kidney. Blood cultures have been negative. Urine cultures also without growth. 2) Possible UTI: UA with significant hematuria and pyuria. Patient is an ESRD patient, hence difficult to interpret the UA, states he doesn't make much urine. Given recent confusion and leukocytosis, reasonable to complete empiric course of 7 days of antibiotics. Continue ceftriaxone. 3) Positive MRSA nasal culture: Continue contact isolation. 4) Metastatic prostate cancer: was recently started on Casodex, [facility] 5) ESRD: on HD. Nephrology following. Renally dose abx and meds. Recs: Continue 5 of 7 days of ceftriaxone IV Contact isolation for MRSA Leukocytosis could be reactive and related to the right kidney subcapsular hematoma Recheck WBC in AM MD Esperanza [facility] C: [phone] O: [phone] F: [phone]
[2018-10-14] MEDS: REMERON PO SCH (22:08)
[2018-10-15] MEDS: SODIUM CHLORIDE FLUSH SYRINGE 10 ML IV SCH ×3 (01:47→22:59)
[2018-10-15] MEDS: PERCOCET 5/325 PO PRN (05:50)
[2018-10-15] MEDS: RENVELA PO SCH ×3 (08:23→17:07)
[2018-10-15] MEDS: HumaLOG SUB-Q SCH ×4 (08:23→22:56)
[2018-10-15] MEDS: ROCEPHIN/NS 1 GM/50 ML 1 GM/50 ML BAG IV SCH (09:35)
[2018-10-15] MEDS: EFFEXOR PO SCH ×2 (09:37→21:30)
[2018-10-15] MEDS: CASODEX PO SCH (09:37)
[2018-10-15] MEDS: FEOSOL PO SCH (09:37)
[2018-10-15] MEDS: VITAMIN D3 PO SCH (09:37)
[2018-10-15] MEDS: DELTASONE PO SCH (09:38)
[2018-10-15] MEDS: PEPCID PO SCH ×2 (09:38→21:18)
[2018-10-15] MEDS: ANTIBIOTIC OINT TP SCH ×2 (09:39→23:06)
[2018-10-15] MEDS: HEPARIN SUB-Q SCH ×2 (09:39→21:19)
[2018-10-15 12:51] LABS: Hemoglobin 6.3 gm/dl (11.8-15.2); Mean Corpuscular HGB Conc 33 % (32-34); Mean Corpuscular Volume 92 fl (84-94); Platelet Count 311 K/mm3 (140-440); Red Blood Count 2.09 M/mm3 (3.65-5.03); Red Cell Distribution Width 14.8 % (13.2-15.2)
[2018-10-15 12:59] LABS: Hematocrit 19.2 % (35.5-45.6)
[2018-10-15] MEDS ORDERED: NACL 0.9% 500 ML 500 ML IV NR (13:03)
--- NOTE | 2018-10-15 13:05 | Progress Note ---
Assessment and Plan Assessment and plan: -- Anemia Hemoglobin dropped to 6.3 today , no external evidence of bleeding Transfuse 1 unit of PRBC, check with nephrology Etiology likely secondary to chronic kidney disease We'll give Epogen 20,000 units with dialysis. -- Sepsis Sepsis secondary to urinary tract infection SIRS criteria 2 out of 4 Leukocytosis and tachycardia More alert and oriented --Acute Encephalopathy Secondary to Uremia and Sepsis improving More Communicative --Chronic Pain Pain control with Analgesics -- End stage renal disease End-stage renal disease Access right IJ catheter Receive dialysis on 10/10/2018 on dialysis Repeat dialysis in the a.m. -- Hypertension Moderate control, continue current antihypertensives and when necessary medications --History of prostate Cancer /Nephrostomy tube Urology following, nephrostomy care --MRSA in Nares Contact isolation, bacitracin ointment, ID evaluation if needed --DVT Prophylaxis On Heparin and GI prophylaxis Plan of care reviewed with the patient and his nurse. History Interval history: Patient seen and examined medical records reviewed No new events reported by the nursing staff The patient complains of generalized weakness Mild drop in H&H, hemoglobin 6.3 No exam evidence of bleeding The patient is alert awake oriented 3 Vital signs noted Hospitalist Physical - Constitutional Vitals: Temp Pulse Resp BP Pulse Ox 97.9 F 103 H 18 100/53 98 10/15/18 11:56 10/15/18 11:56 10/15/18 11:56 10/15/18 11:56 10/15/18 11:56 General appearance: Present: no acute distress, well-nourished - EENT Eyes: Present: PERRL, EOM intact - Neck Neck: Present: supple, normal ROM - Respiratory Respiratory effort: normal Respiratory: bilateral: diminished, negative: rales, rhonchi, wheezing - Cardiovascular Rhythm: regular Heart Sounds: Present: S1 & S2 - Extremities Extremities: no ischemia, No edema - Abdominal General gastrointestinal: soft, non-tender, non-distended, normal bowel sounds, other (nephrostomy tube draining well) - Integumentary Integumentary: Present: clear, warm - Psychiatric Psychiatric: appropriate mood/affect, cooperative - Neurologic Neurologic: moves all extremities Results - Labs CBC & Chem 7: 10/15/18 12:35 10/15/18 12:35 Labs: Laboratory Last Values WBC 15.3 K/mm3 (4.5-11.0) H 10/15/18 12:35 RBC 2.09 M/mm3 (3.65-5.03) L 10/15/18 12:35 Hgb 6.3 gm/dl (11.8-15.2) L 10/15/18 12:35 Hct 19.2 % (35.5-45.6) L* 10/15/18 12:35 MCV 92 fl (84-94) 10/15/18 12:35 MCH 30 pg (28-32) 10/15/18 12:35 MCHC 33 % (32-34) 10/15/18 12:35 RDW 14.8 % (13.2-15.2) 10/15/18 12:35 Plt Count 311 K/mm3 (140-440) 10/15/18 12:35 Lymph % (Auto) [employer] 10/09/18 10:41 Craig % (Auto) [employer] 10/09/18 10:41 Eos % (Auto) [employer] 10/09/18 10:41 Baso % (Auto) [employer] 10/09/18 10:41 Lymph # [employer] 10/09/18 10:41 Craig # [employer] 10/09/18 10:41 Eos # [employer] 10/09/18 10:41 Baso # [employer] 10/09/18 10:41 Add Manual Diff Complete 10/12/18 04:36 Total Counted 100 10/12/18 04:36 Seg Neutrophils % [employer] 10/09/18 10:41 Seg Neuts % (Manual) 82.0 % (40.0-70.0) H 10/12/18 04:36 Band Neutrophils % 6.0 % 10/12/18 04:36 Lymphocytes % (Manual) 6.0 % (13.4-35.0) L 10/12/18 04:36 Reactive Lymphs % (Man) 0 % 10/12/18 04:36 Monocytes % (Manual) 4.0 % (0.0-7.3) 10/12/18 04:36 Eosinophils % (Manual) 0 % (0.0-4.3) 10/12/18 04:36 Basophils % (Manual) 0 % (0.0-1.8) 10/12/18 04:36 Metamyelocytes % 0 % 10/12/18 04:36 Myelocytes % 2.0 % 10/12/18 04:36 Promyelocytes % 0 % 10/12/18 04:36 Blast Cells % 0 % 10/12/18 04:36 Nucleated RBC % Not Reportable 10/12/18 04:36 Seg Neutrophils # [employer] 10/09/18 10:41 Seg Neutrophils # Man 13.8 K/mm3 (1.8-7.7) H 10/12/18 04:36 Band Neutrophils # 1.0 K/mm3 10/12/18 04:36 Lymphocytes # (Manual) 1.0 K/mm3 (1.2-5.4) L 10/12/18 04:36 Abs React Lymphs (Man) 0.0 K/mm3 10/12/18 04:36 Monocytes # (Manual) 0.7 K/mm3 (0.0-0.8) 10/12/18 04:36 Eosinophils # (Manual) 0.0 K/mm3 (0.0-0.4) 10/12/18 04:36 Basophils # (Manual) 0.0 K/mm3 (0.0-0.1) 10/12/18 04:36 Metamyelocytes # 0.0 K/mm3 10/12/18 04:36 Myelocytes # 0.3 K/mm3 10/12/18 04:36 Promyelocytes # 0.0 K/mm3 10/12/18 04:36 Blast Cells # 0.0 K/mm3 10/12/18 04:36 WBC Morphology Not Reportable 10/12/18 04:36 Hypersegmented Neuts Not Reportable 10/12/18 04:36 Hyposegmented Neuts Not Reportable 10/12/18 04:36 Hypogranular Neuts Not Reportable 10/12/18 04:36 Smudge Cells Not Reportable 10/12/18 04:36 Toxic Granulation Not Reportable 10/12/18 04:36 Toxic Vacuolation Not Reportable 10/12/18 04:36 Dohle Bodies Not Reportable 10/12/18 04:36 Pelger-Huet Anomaly Not Reportable 10/12/18 04:36 Bridget Rods Not Reportable 10/12/18 04:36 Platelet Estimate Appears normal 10/12/18 04:36 Clumped Platelets Not Reportable 10/12/18 04:36 Plt Clumps, EDTA Not Reportable 10/12/18 04:36 Large Platelets Not Reportable 10/12/18 04:36 Giant Platelets Not Reportable 10/12/18 04:36 Platelet Satelliting Not Reportable 10/12/18 04:36 Plt Morphology Comment Not Reportable 10/12/18 04:36 RBC Morphology Not Reportable 10/12/18 04:36 Dimorphic RBCs Not Reportable 10/12/18 04:36 Polychromasia Not Reportable 10/12/18 04:36 Hypochromasia Few 10/12/18 04:36 Poikilocytosis Not Reportable 10/12/18 04:36 Anisocytosis Not Reportable 10/12/18 04:36 Microcytosis Not Reportable 10/12/18 04:36 Macrocytosis Not Reportable 10/12/18 04:36 Spherocytes Not Reportable 10/12/18 04:36 Pappenheimer Bodies Not Reportable 10/12/18 04:36 Sickle Cells Not Reportable 10/12/18 04:36 Target Cells Not Reportable 10/12/18 04:36 Tear Drop Cells Not Reportable 10/12/18 04:36 Ovalocytes Not Reportable 10/12/18 04:36 Helmet Cells Not Reportable 10/12/18 04:36 [place] Bodies Not Reportable 10/12/18 04:36 [place] Rings Not Reportable 10/12/18 04:36 Tushar Cells Not Reportable 10/12/18 04:36 Bite Cells Not Reportable 10/12/18 04:36 Crenated Cell Not Reportable 10/12/18 04:36 Elliptocytes Not Reportable 10/12/18 04:36 Acanthocytes (Spur) Not Reportable 10/12/18 04:36 Rouleaux Not Reportable 10/12/18 04:36 Hemoglobin C Crystals Not Reportable 10/12/18 04:36 Schistocytes Not Reportable 10/12/18 04:36 Malaria parasites Not Reportable 10/12/18 04:36 Oswald Bodies Not Reportable 10/12/18 04:36 Hem Pathologist Commnt No 10/12/18 04:36 PT 16.2 Sec. (12.2-14.9) H 10/09/18 10:41 INR 1.22 (0.87-1.13) H 10/09/18 10:41 APTT 30.9 Sec. (24.2-36.6) 10/09/18 10:41 Sodium 140 mmol/L (137-145) 10/12/18 04:36 Potassium 3.1 mmol/L (3.6-5.0) L 10/12/18 04:36 Chloride 94.4 mmol/L (98-107) L 10/12/18 04:36 Carbon Dioxide 26 mmol/L (22-30) D 10/12/18 04:36 Anion Gap 23 mmol/L 10/12/18 04:36 BUN 38 mg/dL (9-20) H 10/12/18 04:36 Creatinine 7.4 mg/dL (0.8-1.5) H 10/12/18 04:36 Estimated GFR 9 ml/min 10/12/18 04:36 BUN/Creatinine Ratio 5 % 10/12/18 04:36 Glucose 374 mg/dL (75-100) H 10/12/18 04:36 POC Glucose 177 (70-105) H 10/15/18 11:41 Hemoglobin A1c 6.0 % (4-6) 10/09/18 22:51 Lactic Acid 1.00 mmol/L (0.7-2.0) 10/10/18 06:02 Calcium 10.0 mg/dL (8.4-10.2) 10/12/18 04:36 Total Bilirubin 0.60 mg/dL (0.1-1.2) 10/10/18 06:02 Direct Bilirubin 0.5 mg/dL (0-0.2) H 10/09/18 10:41 Indirect Bilirubin 0.4 mg/dL 10/09/18 10:41 AST 18 units/L (5-40) 10/10/18 06:02 ALT 13 units/L (7-56) 10/10/18 06:02 Alkaline Phosphatase 181 units/L (35-129) H 10/10/18 06:02 Ammonia 33.0 umol/L (25-60) 10/09/18 10:41 Troponin T 0.233 ng/mL (0.00-0.029) H* 10/09/18 10:41 Total Protein 6.4 g/dL (6.3-8.2) 10/10/18 06:02 Albumin 2.7 g/dL (3.9-5) L 10/10/18 06:02 Albumin/Globulin Ratio 0.7 % 10/10/18 06:02 Triglycerides 274 mg/dL (2-149) H 10/09/18 10:41 Cholesterol 176 mg/dL (50-199) 10/09/18 10:41 LDL Cholesterol Direct 61 mg/dL (50-130) 10/09/18 10:41 HDL Cholesterol 28 mg/dL (40-59) L 10/09/18 10:41 Cholesterol/HDL Ratio 6.28 % 10/09/18 10:41 Prostate Specific Ag 2660.00 ng/mL (0.00-4.00) H 10/10/18 11:01 Urine Color Alla (Yellow) 10/09/18 11:39 Urine Turbidity Turbid (Clear) 10/09/18 11:39 Urine pH [employer] 10/09/18 11:39 Ur Specific [place] [employer] 10/09/18 11:39 Urine Protein Color interference mg/dL (Negative) 10/09/18 11:39 Urine Glucose (UA) Color interference mg/dL (Negative) 10/09/18 11:39 Urine Ketones Color interference mg/dL (Negative) 10/09/18 11:39 Urine Blood Color interference (Negative) 10/09/18 11:39 Urine Nitrite Color interference (Negative) 10/09/18 11:39 Urine Bilirubin Color interference (Negative) 10/09/18 11:39 Urine Ictotest Not Reportable 10/09/18 11:39 Urine Urobilinogen [employer] 10/09/18 11:39 Ur Leukocyte Esterase Color interference (Negative) 10/09/18 11:39 Urine WBC (Auto) > 182.0 /HPF (0.0-6.0) H 10/09/18 11:39 Urine RBC (Auto) > 182.0 /HPF (0.0-6.0) 10/09/18 11:39 Urine Bacteria (Auto) 4+ /HPF (Negative) 10/09/18 11:39 Hepatitis A IgM Ab Non-reactive (NonReactive) 10/10/18 18:00 Hep Bs Antigen Non-reactive (Negative) 10/10/18 18:00 Hep B Core IgM Ab Non-reactive (NonReactive) 10/10/18 18:00 Hepatitis C Antibody Non-reactive (NonReactive) 10/10/18 18:00 Active Medications - Current Medications Current Medications: Generic Name Dose Route Start Last Admin Trade Name Freq PRN Reason Stop Dose Admin Acetaminophen 650 mg 10/09/18 22:03 Tylenol PO Q4H PRN Pain MILD(1-3)/Fever >100.5/DIAZ Acetaminophen 500 mg 10/09/18 22:06 Tylenol PO Q6HR PRN Pain, Moderate (4-6) Bacitracin 1 applic 10/13/18 16:00 10/15/18 09:39 Antibiotic Oint TP 1 applic BID [place] Administration Bicalutamide 50 mg 10/11/18 10:00 10/15/18 09:37 Casodex PO 50 mg QDAY [place] Administration Cholecalciferol 2,000 unit 10/10/18 10:00 10/15/18 09:37 Vitamin D3 PO 2,000 unit QDAY [place] Administration Epoetin Víctor 20,000 unit 10/10/18 14:00 10/13/18 11:48 Procrit IV 20,000 unit [place] PRN Administration .anemia Famotidine 10 mg 10/09/18 23:00 10/15/18 09:38 Pepcid PO 10 mg BID [place] Administration Ferrous Sulfate 325 mg 10/10/18 10:00 10/15/18 09:37 Feosol PO 325 mg QDAY [place] Administration Heparin Sodium (Porcine) 5,000 unit 10/13/18 16:00 10/15/18 09:39 Heparin SUB-Q 5,000 unit Q12HR [place] Administration Hydromorphone HCl 0.25 mg 10/09/18 22:03 10/11/18 09:09 Dilaudid IV 0.25 mg Q3H PRN Administration Pain, Moderate (4-6) Ceftriaxone Sodium 1 gm in 50 mls @ 100 mls/hr 10/10/18 10:00 10/15/18 09:35 Rocephin/Ns 1 Gm/50 Ml IV 100 mls/hr Q24HR [place] Administration Protocol Sodium Chloride 100 mls @ 999 mls/hr 10/12/18 06:02 Nacl 0.9% IV [place] PRN Hypotension Insulin Human Isoph/Insulin Regular 6 unit 10/15/18 17:00 Humulin 70/30 SUB-Q BIDDIAB [place] Insulin Human Lispro 0 unit 10/12/18 16:30 10/15/18 12:27 Humalog SUB-Q 3 unit ACHS [facility] Administration Protocol Metoclopramide HCl 10 mg 10/09/18 20:01 10/10/18 18:12 Reglan IV 10 mg Q6H PRN Administration Nausea And Vomiting Mirtazapine 7.5 mg 10/09/18 22:00 10/14/18 22:08 Remeron PO 7.5 mg QHS [place] Administration Miscellaneous Medication 1,000 mg 10/10/18 10:00 Abiraterone Acetate (Nf) PO QDAY [facility] Ondansetron HCl 4 mg 10/09/18 22:03 10/11/18 14:04 Zofran IV 4 mg Q8H PRN Administration Nausea And Vomiting Oxycodone/Acetaminophen 1 tab 10/09/18 22:03 10/15/18 05:50 Percocet 5/325 PO 1 tab Q6H PRN Administration Pain, Moderate (4-6) Prednisone 5 mg 10/10/18 10:00 10/15/18 09:38 Deltasone PO 5 mg QDAY [place] Administration Senna 8.6 mg 10/09/18 22:06 10/10/18 22:32 Senokot PO 8.6 mg DAILY PRN Administration Constipation Sevelamer Carbonate 800 mg 10/10/18 08:00 10/15/18 12:27 Renvela PO 800 mg TIDWM [place] Administration Sodium Chloride 10 ml 10/10/18 10:00 10/15/18 09:38 Sodium Chloride Flush Syringe 10 Ml IV 10 ml BID [place] Administration Sodium Chloride 10 ml 10/09/18 22:03 10/11/18 14:04 Sodium Chloride Flush Syringe 10 Ml IV 10 ml PRN PRN Administration LINE FLUSH Venlafaxine HCl 25 mg 10/09/18 23:00 10/15/18 09:37 Effexor PO 25 mg BID [place] Administration
[2018-10-15 13:09] LABS: Calcium 9.6 mg/dL (8.4-10.2)
--- NOTE | 2018-10-15 14:38 | Progress Note ---
Assessment and Plan Assessment: * End stage renal disease on IHD * Sepsis * Altered mental status * Prostate CA s/p percutaneous nephrostomy tubes * Hypertension * Type II DM * Anemia secondary to ESRD * Secondary hyperparathyroidism * MRSA colonization Plan: * Continue HD MWF * UF as tolerated * Empiric abx per primary team - blood cx NGTD * Transfuse pRBC prn - agree with 1 unit pRBC transfusion today. Epogen TIW prn * Urology recommendations noted * Renal diet Subjective Date of service: 10/15/18 Principal diagnosis: end-stage renal disease,Sepsis Interval history: Patient has no complaint today Objective - Vital Signs Vital signs: Vital Signs - 12hr 10/15/18 10/15/18 10/15/18 02:47 08:44 10:00 Temperature 98.6 F Pulse Rate 103 H Respiratory 20 18 Rate Blood Pressure 99/52 O2 Sat by Pulse 100 96 98 Oximetry 10/15/18 10/15/18 11:56 13:33 Temperature 97.9 F 98.0 F Pulse Rate 103 H 100 H Respiratory 18 18 Rate Blood Pressure 100/53 103/57 O2 Sat by Pulse 98 94 Oximetry - General Appearance General appearance: well-developed, frail EENT: ATNC Respiratory: Present: Clear to Ascultation Cardiology: regular, S1S2 Gastrointestinal: normal, no tenderness, no distended Integumentary: no rash, warm and dry Psychiatric: cooperative - Lab 10/15/18 12:35 10/15/18 12:35 Most recent lab results Calcium 9.6 mg/dL (8.4-10.2) 10/15/18 12:35 Medications & Allergies - Medications Allergies/Adverse Reactions: Allergies No Known Allergies Allergy (Unverified 10/09/18 11:11) Home Medications: Home Medications Medication Instructions Recorded Confirmed Last Taken Type Abiraterone Acetate (Nf) [Zytiga 1,000 mg PO QDAY 10/09/18 10/09/18 Unknown History (Nf)] Acetaminophen [Tylenol] 500 mg PO Q6HR PRN 10/09/18 10/09/18 Unknown History Cholecalciferol Vit D3 [Vitamin D3 2,000 unit PO QDAY 10/09/18 10/09/18 Unknown History 1,000 UNIT TAB] Ferrous Sulfate [Iron] 325 mg PO QDAY 10/09/18 10/09/18 Unknown History HYDROcodone/APAP 5-325 [[place] 1 each PO Q6HR PRN 10/09/18 10/09/18 Unknown History 5/325] Mirtazapine 7.5 mg PO HS 10/09/18 10/09/18 Unknown History Multivit-Min/FA/Lycopen/Lutein 1 each PO DAILY 10/09/18 10/09/18 Unknown History [Men 50 Plus Multivitamin Tab] Ondansetron [Zofran ODT TAB] 8 mg PO Q8HR PRN 10/09/18 10/09/18 Unknown History Polyethylene Glycol 3350 17 gm PO PRN PRN 10/09/18 10/09/18 Unknown History [Smoothlax] Sennosides [Senna Laxative] 8.6 mg PO PRN PRN 10/09/18 10/09/18 Unknown History Sevelamer Carbonate [Renvela] 800 mg PO TIDWM 10/09/18 10/09/18 Unknown History Venlafaxine [Effexor 25mg tab] 25 mg PO BID 10/09/18 10/09/18 Unknown History predniSONE [Prednisone] 5 mg PO QDAY 10/09/18 10/09/18 Unknown History Active Medications: Generic Name Dose Route Start Last Admin Trade Name Freq PRN Reason Stop Dose Admin Acetaminophen 650 mg 10/09/18 22:03 Tylenol PO Q4H PRN Pain MILD(1-3)/Fever >100.5/DIAZ Acetaminophen 500 mg 10/09/18 22:06 Tylenol PO Q6HR PRN Pain, Moderate (4-6) Bacitracin 1 applic 10/13/18 16:00 10/15/18 09:39 Antibiotic Oint TP 1 applic BID ENRICO Administration Bicalutamide 50 mg 10/11/18 10:00 10/15/18 09:37 Casodex PO 50 mg QDAY [place] Administration Cholecalciferol 2,000 unit 10/10/18 10:00 10/15/18 09:37 Vitamin D3 PO 2,000 unit QDAY [place] Administration Epoetin Víctor 20,000 unit 10/10/18 14:00 10/13/18 11:48 Procrit IV 20,000 unit [place] PRN Administration .anemia Famotidine 10 mg 10/09/18 23:00 10/15/18 09:38 Pepcid PO 10 mg BID E[place] Administration Ferrous Sulfate 325 mg 10/10/18 10:00 10/15/18 09:37 Feosol PO 325 mg QDAY E[place] Administration Heparin Sodium (Porcine) 5,000 unit 10/13/18 16:00 10/15/18 09:39 Heparin SUB-Q 5,000 unit Q12HR ENRICO Administration Hydromorphone HCl 0.25 mg 10/09/18 22:03 10/11/18 09:09 Dilaudid IV 0.25 mg Q3H PRN Administration Pain, Moderate (4-6) Ceftriaxone Sodium 1 gm in 50 mls @ 100 mls/hr 10/10/18 10:00 10/15/18 09:35 Rocephin/Ns 1 Gm/50 Ml IV 100 mls/hr Q24HR ENRICO Administration Protocol Sodium Chloride 100 mls @ 999 mls/hr 10/12/18 06:02 Nacl 0.9% IV [place] PRN Hypotension Sodium Chloride 500 mls @ 0 mls/hr 10/15/18 13:03 Nacl 0.9% 500 Ml IV 10/15/18 23:59 ONCE NR As Directed Insulin Human Isoph/Insulin Regular 6 unit 10/15/18 17:00 Humulin 70/30 SUB-Q BIDDIAB [facility] Insulin Human Lispro 0 unit 10/12/18 16:30 10/15/18 12:27 Humalog SUB-Q 3 unit ACHS [facility] Administration Protocol Metoclopramide HCl 10 mg 10/09/18 20:01 10/10/18 18:12 Reglan IV 10 mg Q6H PRN Administration Nausea And Vomiting Mirtazapine 7.5 mg 10/09/18 22:00 10/14/18 22:08 Remeron PO 7.5 mg QHS E[place] Administration Miscellaneous Medication 1,000 mg 10/10/18 10:00 Abiraterone Acetate (Nf) PO QDAY [facility] Ondansetron HCl 4 mg 10/09/18 22:03 10/11/18 14:04 Zofran IV 4 mg Q8H PRN Administration Nausea And Vomiting Oxycodone/Acetaminophen 1 tab 10/09/18 22:03 10/15/18 05:50 Percocet 5/325 PO 1 tab Q6H PRN Administration Pain, Moderate (4-6) Prednisone 5 mg 10/10/18 10:00 10/15/18 09:38 Deltasone PO 5 mg QDAY [place] Administration Senna 8.6 mg 10/09/18 22:06 10/10/18 22:32 Senokot PO 8.6 mg DAILY PRN Administration Constipation Sevelamer Carbonate 800 mg 10/10/18 08:00 10/15/18 12:27 Renvela PO 800 mg TIDWM [place] Administration Sodium Chloride 10 ml 10/10/18 10:00 10/15/18 09:38 Sodium Chloride Flush Syringe 10 Ml IV 10 ml BID E[place] Administration Sodium Chloride 10 ml 10/09/18 22:03 10/11/18 14:04 Sodium Chloride Flush Syringe 10 Ml IV 10 ml PRN PRN Administration LINE FLUSH Venlafaxine HCl 25 mg 10/09/18 23:00 10/15/18 09:37 Effexor PO 25 mg BID E[place] Administration
[2018-10-15 15:33] LABS: Band Neutrophils # (Manual) 0.8 K/mm3; Basophils % (Manual) 0 % (0.0-1.8); Eosinophils % (Manual) 0 % (0.0-4.3); Myelocytes # (Manual) 0.2 K/mm3; Total Cells Counted 100
[2018-10-15 15:34] LABS: Anisocytosis 1+; Hypochromasia 1+; Platelet Estimate Consistent w Auto
[2018-10-15] MEDS ORDERED: NACL 0.9 (PRIMING MACHINE ONLY DIALYSIS) MC ONE (20:29)
[2018-10-15] MEDS: REMERON PO SCH (22:18)
[2018-10-16 01:57] LABS: Hematocrit 20.7 % (35.5-45.6); Hemoglobin 6.9 gm/dl (11.8-15.2); Mean Corpuscular HGB Conc 33 % (32-34); Mean Corpuscular Volume 91 fl (84-94); Platelet Count 282 K/mm3 (140-440); Red Blood Count 2.28 M/mm3 (3.65-5.03); Red Cell Distribution Width 14.6 % (13.2-15.2)
[2018-10-16] MEDS ORDERED: NACL 0.9% 500 ML 500 ML IV ONE (05:28)
[2018-10-16 06:01] LABS: Basophils % (Manual) 0 % (0.0-1.8); Total Cells Counted 100
[2018-10-16 06:08] LABS: Anisocytosis 1+; Hypochromasia 1+; Platelet Estimate Consistent w Auto; Poikilocytosis 1+
[2018-10-16] MEDS: HumaLOG SUB-Q SCH ×4 (08:29→22:22)
[2018-10-16] MEDS: RENVELA PO SCH ×3 (08:30→17:54)
--- NOTE | 2018-10-16 08:55 | Progress Note ---
Assessment and Plan Assessment: * End stage renal disease on IHD * Sepsis * Altered mental status * Prostate CA s/p percutaneous nephrostomy tubes * Hypertension * Type II DM * Anemia secondary to ESRD * Secondary hyperparathyroidism * MRSA colonization Plan: * Resume MWF HD schedule today * Transfuse pRBC with dialysis today * UF as tolerated * Empiric abx per primary team - blood cx NGTD * Epogen TIW prn * Urology recommendations noted * Renal diet Subjective Date of service: 10/16/18 Principal diagnosis: end-stage renal disease,Sepsis Interval history: Patient has no complaints today Objective - Vital Signs Vital signs: Vital Signs - 12hr 10/15/18 10/16/18 10/16/18 21:25 04:23 04:27 Temperature 98 F 99.6 F Pulse Rate 66 101 H Respiratory 16 Rate Blood Pressure 99/52 110/59 O2 Sat by Pulse 97 Oximetry 10/16/18 08:28 Temperature Pulse Rate Respiratory 18 Rate Blood Pressure O2 Sat by Pulse Oximetry - General Appearance General appearance: well-developed, frail EENT: ATNC Respiratory: Present: Clear to Ascultation Cardiology: regular, S1S2 Gastrointestinal: normal, no tenderness, no distended Integumentary: warm and dry Musculoskeletal: other (no edema) Psychiatric: cooperative - Lab 10/16/18 01:42 10/15/18 12:35 Most recent lab results Calcium 9.6 mg/dL (8.4-10.2) 10/15/18 12:35 Medications & Allergies - Medications Allergies/Adverse Reactions: Allergies No Known Allergies Allergy (Unverified 10/09/18 11:11) Home Medications: Home Medications Medication Instructions Recorded Confirmed Last Taken Type Abiraterone Acetate (Nf) [Zytiga 1,000 mg PO QDAY 10/09/18 10/09/18 Unknown History (Nf)] Acetaminophen [Tylenol] 500 mg PO Q6HR PRN 10/09/18 10/09/18 Unknown History Cholecalciferol Vit D3 [Vitamin D3 2,000 unit PO QDAY 10/09/18 10/09/18 Unknown History 1,000 UNIT TAB] Ferrous Sulfate [Iron] 325 mg PO QDAY 10/09/18 10/09/18 Unknown History HYDROcodone/APAP 5-325 [[place] 1 each PO Q6HR PRN 10/09/18 10/09/18 Unknown History 5/325] Mirtazapine 7.5 mg PO HS 10/09/18 10/09/18 Unknown History Multivit-Min/FA/Lycopen/Lutein 1 each PO DAILY 10/09/18 10/09/18 Unknown History [Men 50 Plus Multivitamin Tab] Ondansetron [Zofran ODT TAB] 8 mg PO Q8HR PRN 10/09/18 10/09/18 Unknown History Polyethylene Glycol 3350 17 gm PO PRN PRN 10/09/18 10/09/18 Unknown History [Smoothlax] Sennosides [Senna Laxative] 8.6 mg PO PRN PRN 10/09/18 10/09/18 Unknown History Sevelamer Carbonate [Renvela] 800 mg PO TIDWM 10/09/18 10/09/18 Unknown History Venlafaxine [Effexor 25mg tab] 25 mg PO BID 10/09/18 10/09/18 Unknown History predniSONE [Prednisone] 5 mg PO QDAY 10/09/18 10/09/18 Unknown History Active Medications: Generic Name Dose Route Start Last Admin Trade Name Freq PRN Reason Stop Dose Admin Acetaminophen 650 mg 10/09/18 22:03 10/16/18 08:28 Tylenol PO 650 mg Q4H PRN Administration Pain MILD(1-3)/Fever >100.5/DIAZ Acetaminophen 500 mg 10/09/18 22:06 Tylenol PO Q6HR PRN Pain, Moderate (4-6) Bacitracin 1 applic 10/13/18 16:00 10/15/18 23:06 Antibiotic Oint TP 1 applic BID ENRICO Administration Bicalutamide 50 mg 10/11/18 10:00 10/15/18 09:37 Casodex PO 50 mg QDAY [place] Administration Cholecalciferol 2,000 unit 10/10/18 10:00 10/15/18 09:37 Vitamin D3 PO 2,000 unit QDAY [place] Administration Epoetin Víctor 20,000 unit 10/10/18 14:00 10/13/18 11:48 Procrit IV 20,000 unit [place] PRN Administration .anemia Famotidine 10 mg 10/09/18 23:00 10/15/18 21:18 Pepcid PO 10 mg BID E[place] Administration Ferrous Sulfate 325 mg 10/10/18 10:00 10/15/18 09:37 Feosol PO 325 mg QDAY [place] Administration Heparin Sodium (Porcine) 5,000 unit 10/13/18 16:00 10/15/18 21:19 Heparin SUB-Q 5,000 unit Q12HR [place] Administration Hydromorphone HCl 0.25 mg 10/09/18 22:03 10/11/18 09:09 Dilaudid IV 0.25 mg Q3H PRN Administration Pain, Moderate (4-6) Ceftriaxone Sodium 1 gm in 50 mls @ 100 mls/hr 10/10/18 10:00 10/15/18 09:35 Rocephin/Ns 1 Gm/50 Ml IV 100 mls/hr Q24HR E[place] Administration Protocol Sodium Chloride 100 mls @ 999 mls/hr 10/12/18 06:02 Nacl 0.9% IV [place] PRN Hypotension Insulin Human Isoph/Insulin Regular 6 unit 10/15/18 17:00 10/16/18 08:29 Humulin 70/30 SUB-Q 6 unit BIDDIAB [place] Administration Insulin Human Lispro 0 unit 10/12/18 16:30 10/16/18 08:29 Humalog SUB-Q 3 unit ACHS [place] Administration Protocol Metoclopramide HCl 10 mg 10/09/18 20:01 10/10/18 18:12 Reglan IV 10 mg Q6H PRN Administration Nausea And Vomiting Mirtazapine 7.5 mg 10/09/18 22:00 10/15/18 22:18 Remeron PO 7.5 mg QHS E[place] Administration Miscellaneous Medication 1,000 mg 10/10/18 10:00 Abiraterone Acetate (Nf) PO QDAY [facility] Ondansetron HCl 4 mg 10/09/18 22:03 10/11/18 14:04 Zofran IV 4 mg Q8H PRN Administration Nausea And Vomiting Oxycodone/Acetaminophen 1 tab 10/09/18 22:03 10/15/18 05:50 Percocet 5/325 PO 1 tab Q6H PRN Administration Pain, Moderate (4-6) Prednisone 5 mg 10/10/18 10:00 10/15/18 09:38 Deltasone PO 5 mg QDAY [place] Administration Senna 8.6 mg 10/09/18 22:06 10/10/18 22:32 Senokot PO 8.6 mg DAILY PRN Administration Constipation Sevelamer Carbonate 800 mg 10/10/18 08:00 10/16/18 08:30 Renvela PO 800 mg TIDWM [place] Administration Sodium Chloride 10 ml 10/10/18 10:00 10/15/18 22:59 Sodium Chloride Flush Syringe 10 Ml IV 10 ml BID E[place] Administration Sodium Chloride 10 ml 10/09/18 22:03 10/11/18 14:04 Sodium Chloride Flush Syringe 10 Ml IV 10 ml PRN PRN Administration LINE FLUSH Venlafaxine HCl 25 mg 10/09/18 23:00 10/15/18 21:30 Effexor PO 25 mg BID ENRICO Administration
--- NOTE | 2018-10-16 09:10 | Progress Note ---
Assessment and Plan Microbiology: 10/09/2018 blood culture: No growth 10/09/2018 MRSA nares culture: Positive 10/11/2018 urine culture: No growth A/P 63-year-old male with ESRD on hemodialysis, hypertension, diabetes, anemia, history of metastatic prostate cancer for which he recently underwent a percutaneous nephrostomy due to placement and was started on Casodex, was brought to the emergency room from a senior care after he became confused and fell: 1) Concern for sepsis: Leukocytosis continuing, trending down. . Leukocytosis could be reactive due to the large right-sided subcapsular hematoma compressing the right kidney. Blood cultures have been negative. Urine cultures also without growth. 2) Complicated UTI with right Nephrostomy tube UA with significant hematuria and pyuria. Urine culture shows no growth to date. Patient is an ESRD patient, hence difficult to interpret the UA, states he doesn't make much urine. Reasonable to complete empiric course of 7 days of antibiotics. Continue ceftriaxone. 3) Positive MRSA nasal culture: Continue contact isolation. 4) Metastatic prostate cancer: was recently started on Casodex, apparently gets care at the [facility]. 5) ESRD: on HD. Nephrology following. Renally dose abx and meds. Recs: Continue 6 of 7 days of ceftriaxone IV Contact isolation for MRSA Leukocytosis could be reactive and related to the right kidney subcapsular hematoma [facility] M: [phone] O:[phone] Subjective Date of service: 10/16/18 Principal diagnosis: end-stage renal disease,Sepsis Interval history: Patient seen and examined. Sitting up in bed eating. Denied generalized pain or SOB. Fevers continuing. Nurses notes, labs and reports reviewed, discussed with patient, questions answered. Objective - Exam Narrative Exam: Constitutional: Alert, cooperative. No acute distress Head, Ears, Nose: Normocephalic, atraumatic. External ears, nose normal Eyes: Conjunctivae/corneas clear. No icterus. No ptosis. Neck: Supple, no meningeal signs Cardiovascular: S1, S2 normal. Respiratory: Good air entry, clear to auscultation bilaterally GI: Soft, non-tender; bowel sounds normal. No peritoneal signs. Right nephrostomy tube +. right upper chest HD cath + Musculoskeletal: No pedal edema, no cyanosis. Skin: No rash or abscess Hem/Lymphatic: No palpable cervical or supraclavicular nodes. No lymphangitis Psych: Mood ok. Affect normal Neurological: Awake, alert, oriented. No gross abnormality - Constitutional Vitals: Vital Signs Temp Pulse Resp BP Pulse Ox 100.8 F H 99 H 18 110/59 97 10/16/18 08:19 10/16/18 08:19 10/16/18 08:28 10/16/18 08:19 10/16/18 08:19 Temperature -Last 24 Hours Temperature 100.8 F Temperature 99.6 F Temperature 98 F Temperature 98.5 F Temperature 98.8 F Temperature 97.9 F Temperature 99 F Temperature 98.0 F Temperature 97.9 F - Labs CBC & Chem 7: 10/16/18 01:42 10/15/18 12:35 Labs: Abnormal lab results 10/15/18 10/15/18 10/15/18 Range/Units 11:41 12:35 12:35 WBC 15.3 H (4.5-11.0) K/mm3 RBC 2.09 L (3.65-5.03) M/mm3 Hgb 6.3 L (11.8-15.2) gm/dl Hct 19.2 L* (35.5-45.6) % Seg Neuts % (Manual) 79.0 H (40.0-70.0) % Lymphocytes % (Manual) 9.0 L (13.4-35.0) % Nucleated RBC % 2.0 H (0.0-0.9) % Seg Neutrophils # Man 12.1 H (1.8-7.7) K/mm3 Lymphocytes # (Manual) (1.2-5.4) K/mm3 Monocytes # (Manual) 0.9 H (0.0-0.8) K/mm3 Eosinophils # (Manual) (0.0-0.4) K/mm3 Potassium 3.5 L (3.6-5.0) mmol/L Chloride 95.4 L (98-107) mmol/L Creatinine 3.6 H D (0.8-1.5) mg/dL Glucose 155 H (75-100) mg/dL POC Glucose 177 H (70-105) Crossmatch 10/15/18 10/15/18 10/15/18 Range/Units 16:11 16:27 21:46 WBC (4.5-11.0) K/mm3 RBC (3.65-5.03) M/mm3 Hgb (11.8-15.2) gm/dl Hct (35.5-45.6) % Seg Neuts % (Manual) (40.0-70.0) % Lymphocytes % (Manual) (13.4-35.0) % Nucleated RBC % (0.0-0.9) % Seg Neutrophils # Man (1.8-7.7) K/mm3 Lymphocytes # (Manual) (1.2-5.4) K/mm3 Monocytes # (Manual) (0.0-0.8) K/mm3 Eosinophils # (Manual) (0.0-0.4) K/mm3 Potassium (3.6-5.0) mmol/L Chloride (98-107) mmol/L Creatinine (0.8-1.5) mg/dL Glucose (75-100) mg/dL POC Glucose 162 H 172 H (70-105) Crossmatch See Detail 10/16/18 10/16/18 Range/Units 01:42 07:57 WBC 13.2 H (4.5-11.0) K/mm3 RBC 2.28 L (3.65-5.03) M/mm3 Hgb 6.9 L (11.8-15.2) gm/dl Hct 20.7 L (35.5-45.6) % Seg Neuts % (Manual) 86.0 H (40.0-70.0) % Lymphocytes % (Manual) 5.0 L (13.4-35.0) % Nucleated RBC % (0.0-0.9) % Seg Neutrophils # Man 11.4 H (1.8-7.7) K/mm3 Lymphocytes # (Manual) 0.7 L (1.2-5.4) K/mm3 Monocytes # (Manual) (0.0-0.8) K/mm3 Eosinophils # (Manual) 0.5 H (0.0-0.4) K/mm3 Potassium (3.6-5.0) mmol/L Chloride (98-107) mmol/L Creatinine (0.8-1.5) mg/dL Glucose (75-100) mg/dL POC Glucose 173 H (70-105) Crossmatch
[2018-10-16] MEDS: DELTASONE PO SCH (09:48)
[2018-10-16] MEDS: VITAMIN D3 PO SCH (09:48)
[2018-10-16] MEDS: FEOSOL PO SCH (09:48)
[2018-10-16] MEDS: EFFEXOR PO SCH ×2 (09:48→22:22)
[2018-10-16] MEDS: CASODEX PO SCH (09:48)
[2018-10-16] MEDS: PEPCID PO SCH ×2 (09:48→22:22)
[2018-10-16] MEDS: HEPARIN SUB-Q SCH ×2 (09:49→22:23)
[2018-10-16] MEDS: ANTIBIOTIC OINT TP SCH ×2 (09:50→22:21)
[2018-10-16] MEDS: SODIUM CHLORIDE FLUSH SYRINGE 10 ML IV SCH ×2 (09:50→22:24)
[2018-10-16] MEDS ORDERED: NACL 0.9% 100 ML IV PRN (11:58)
--- NOTE | 2018-10-16 14:44 | Progress Note ---
Assessment and Plan Assessment and plan: --Hyperglycemia Hyperglycemia; hemoglobin A1c 6, patient is on long-term low-dose steroid Accu-Chek sliding scale coverage, low-dose long-acting insulin 7030, closely monitor -- Anemia s/p1 unit of PRBC transfusion, Hb improved from 6.3 to 6.9 likely secondary to chronic kidney disease, transfuse additional PRBC today Continue Epogen 20,000 units with dialysis. -- Sepsis Sepsis secondary to urinary tract infection SIRS criteria 2 out of 4 Leukocytosis and tachycardia More alert and oriented --Acute Encephalopathy Secondary to Uremia and Sepsis improving More Communicative --Chronic Pain Pain control with Analgesics -- End stage renal disease End-stage renal disease Access right IJ catheter Receive dialysis on 10/10/2018 on dialysis Repeat dialysis in the a.m. -- Hypertension Moderate control, continue current antihypertensives and when necessary medications --History of prostate Cancer /Nephrostomy tube Urology following, nephrostomy care Patient has follow-up neurology appointment tomorrow Check with Urology the plan of care --MRSA in Nares Contact isolation, bacitracin ointment, ID evaluation if needed --DVT Prophylaxis On Heparin and GI prophylaxis Physical therapy occupational therapy Plan of care reviewed with the patient and his nurse. History Interval history: Patient seen and examined today medical records reviewed No new events reported by the nursing staff Received 1 unit of PRBC with minimal improvement in H&H Today hemoglobin is 6.9 oriented 3 no new complaints, vital signs noted Hospitalist Physical - Constitutional Vitals: Temp Pulse Resp BP Pulse Ox 98.8 F 53 L 18 80/53 97 10/16/18 14:00 10/16/18 14:00 10/16/18 14:00 10/16/18 14:00 10/16/18 10:00 General appearance: Present: no acute distress, well-nourished - EENT Eyes: Present: PERRL, EOM intact - Neck Neck: Present: supple, normal ROM - Respiratory Respiratory effort: normal Respiratory: bilateral: diminished, negative: rales, rhonchi, wheezing - Cardiovascular Rhythm: regular Heart Sounds: Present: S1 & S2 - Extremities Extremities: no ischemia, No edema - Abdominal General gastrointestinal: soft, non-tender, non-distended, normal bowel sounds, other (nephrostomy tube in place, draining well) - Integumentary Integumentary: Present: clear - Psychiatric Psychiatric: appropriate mood/affect, cooperative - Neurologic Neurologic: moves all extremities Results - Labs CBC & Chem 7: 10/16/18 01:42 10/15/18 12:35 Labs: Laboratory Last Values WBC 13.2 K/mm3 (4.5-11.0) H 10/16/18 01:42 RBC 2.28 M/mm3 (3.65-5.03) L 10/16/18 01:42 Hgb 6.9 gm/dl (11.8-15.2) L 10/16/18 01:42 Hct 20.7 % (35.5-45.6) L 10/16/18 01:42 MCV 91 fl (84-94) 10/16/18 01:42 MCH 30 pg (28-32) 10/16/18 01:42 MCHC 33 % (32-34) 10/16/18 01:42 RDW 14.6 % (13.2-15.2) 10/16/18 01:42 Plt Count 282 K/mm3 (140-440) 10/16/18 01:42 Lymph % (Auto) [employer] 10/09/18 10:41 [place] % (Auto) [employer] 10/09/18 10:41 Eos % (Auto) [employer] 10/09/18 10:41 Baso % (Auto) [employer] 10/09/18 10:41 Lymph # [employer] 10/09/18 10:41 [place] # [employer] 10/09/18 10:41 Eos # [employer] 10/09/18 10:41 Baso # [employer] 10/09/18 10:41 Add Manual Diff Complete 10/16/18 01:42 Total Counted 100 10/16/18 01:42 Seg Neutrophils % [employer] 10/09/18 10:41 Seg Neuts % (Manual) 86.0 % (40.0-70.0) H 10/16/18 01:42 Band Neutrophils % 0 % 10/16/18 01:42 Lymphocytes % (Manual) 5.0 % (13.4-35.0) L 10/16/18 01:42 Reactive Lymphs % (Man) 0 % 10/16/18 01:42 Monocytes % (Manual) 2.0 % (0.0-7.3) 10/16/18 01:42 Eosinophils % (Manual) 4.0 % (0.0-4.3) 10/16/18 01:42 Basophils % (Manual) 0 % (0.0-1.8) 10/16/18 01:42 Metamyelocytes % 3.0 % 10/16/18 01:42 Myelocytes % 0 % 10/16/18 01:42 Promyelocytes % 0 % 10/16/18 01:42 Blast Cells % 0 % 10/16/18 01:42 Nucleated RBC % Not Reportable 10/16/18 01:42 Seg Neutrophils # [employer] 10/09/18 10:41 Seg Neutrophils # Man 11.4 K/mm3 (1.8-7.7) H 10/16/18 01:42 Band Neutrophils # 0.0 K/mm3 10/16/18 01:42 Lymphocytes # (Manual) 0.7 K/mm3 (1.2-5.4) L 10/16/18 01:42 Abs React Lymphs (Man) 0.0 K/mm3 10/16/18 01:42 Monocytes # (Manual) 0.3 K/mm3 (0.0-0.8) 10/16/18 01:42 Eosinophils # (Manual) 0.5 K/mm3 (0.0-0.4) H 10/16/18 01:42 Basophils # (Manual) 0.0 K/mm3 (0.0-0.1) 10/16/18 01:42 Metamyelocytes # 0.4 K/mm3 10/16/18 01:42 Myelocytes # 0.0 K/mm3 10/16/18 01:42 Promyelocytes # 0.0 K/mm3 10/16/18 01:42 Blast Cells # 0.0 K/mm3 10/16/18 01:42 WBC Morphology Not Reportable 10/16/18 01:42 Hypersegmented Neuts Not Reportable 10/16/18 01:42 Hyposegmented Neuts Not Reportable 10/16/18 01:42 Hypogranular Neuts Not Reportable 10/16/18 01:42 Smudge Cells Not Reportable 10/16/18 01:42 Toxic Granulation Not Reportable 10/16/18 01:42 Toxic Vacuolation Not Reportable 10/16/18 01:42 Dohle Bodies Not Reportable 10/16/18 01:42 Pelger-Huet Anomaly Not Reportable 10/16/18 01:42 Bridget Rods Not Reportable 10/16/18 01:42 Platelet Estimate Consistent w auto 10/16/18 01:42 Clumped Platelets Not Reportable 10/16/18 01:42 Plt Clumps, EDTA Not Reportable 10/16/18 01:42 Large Platelets Not Reportable 10/16/18 01:42 Giant Platelets Not Reportable 10/16/18 01:42 Platelet Satelliting Not Reportable 10/16/18 01:42 Plt Morphology Comment Not Reportable 10/16/18 01:42 RBC Morphology Not Reportable 10/16/18 01:42 Dimorphic RBCs Not Reportable 10/16/18 01:42 Polychromasia Not Reportable 10/16/18 01:42 Hypochromasia 1+ 10/16/18 01:42 Poikilocytosis 1+ 10/16/18 01:42 Anisocytosis 1+ 10/16/18 01:42 Microcytosis Not Reportable 10/16/18 01:42 Macrocytosis Not Reportable 10/16/18 01:42 Spherocytes Not Reportable 10/16/18 01:42 Pappenheimer Bodies Not Reportable 10/16/18 01:42 Sickle Cells Not Reportable 10/16/18 01:42 Target Cells Not Reportable 10/16/18 01:42 Tear Drop Cells Not Reportable 10/16/18 01:42 Ovalocytes Not Reportable 10/16/18 01:42 Helmet Cells Not Reportable 10/16/18 01:42 [place] Bodies Not Reportable 10/16/18 01:42 [place] Rings Not Reportable 10/16/18 01:42 [place] Cells Not Reportable 10/16/18 01:42 Bite Cells Not Reportable 10/16/18 01:42 Crenated Cell Not Reportable 10/16/18 01:42 Elliptocytes Not Reportable 10/16/18 01:42 Acanthocytes (Spur) Not Reportable 10/16/18 01:42 Rouleaux Not Reportable 10/16/18 01:42 Hemoglobin C Crystals Not Reportable 10/16/18 01:42 Schistocytes Not Reportable 10/16/18 01:42 Malaria parasites Not Reportable 10/16/18 01:42 [place] Bodies Not Reportable 10/16/18 01:42 Hem Pathologist Commnt No 10/16/18 01:42 PT 16.2 Sec. (12.2-14.9) H 10/09/18 10:41 INR 1.22 (0.87-1.13) H 10/09/18 10:41 APTT 30.9 Sec. (24.2-36.6) 10/09/18 10:41 Sodium 138 mmol/L (137-145) 10/15/18 12:35 Potassium 3.5 mmol/L (3.6-5.0) L 10/15/18 12:35 Chloride 95.4 mmol/L (98-107) L 10/15/18 12:35 Carbon Dioxide 27 mmol/L (22-30) 10/15/18 12:35 Anion Gap 19 mmol/L 10/15/18 12:35 BUN 19 mg/dL (9-20) 10/15/18 12:35 Creatinine 3.6 mg/dL (0.8-1.5) H D 10/15/18 12:35 Estimated GFR 21 ml/min 10/15/18 12:35 BUN/Creatinine Ratio 5 % 10/15/18 12:35 Glucose 155 mg/dL (75-100) H 10/15/18 12:35 POC Glucose 178 (70-105) H 10/16/18 11:30 Hemoglobin A1c 6.0 % (4-6) 10/09/18 22:51 Lactic Acid 1.00 mmol/L (0.7-2.0) 10/10/18 06:02 Calcium 9.6 mg/dL (8.4-10.2) 10/15/18 12:35 Total Bilirubin 0.60 mg/dL (0.1-1.2) 10/10/18 06:02 Direct Bilirubin 0.5 mg/dL (0-0.2) H 10/09/18 10:41 Indirect Bilirubin 0.4 mg/dL 10/09/18 10:41 AST 18 units/L (5-40) 10/10/18 06:02 ALT 13 units/L (7-56) 10/10/18 06:02 Alkaline Phosphatase 181 units/L (35-129) H 10/10/18 06:02 Ammonia 33.0 umol/L (25-60) 10/09/18 10:41 Troponin T 0.233 ng/mL (0.00-0.029) H* 10/09/18 10:41 Total Protein 6.4 g/dL (6.3-8.2) 10/10/18 06:02 Albumin 2.7 g/dL (3.9-5) L 10/10/18 06:02 Albumin/Globulin Ratio 0.7 % 10/10/18 06:02 Triglycerides 274 mg/dL (2-149) H 10/09/18 10:41 Cholesterol 176 mg/dL (50-199) 10/09/18 10:41 LDL Cholesterol Direct 61 mg/dL (50-130) 10/09/18 10:41 HDL Cholesterol 28 mg/dL (40-59) L 10/09/18 10:41 Cholesterol/HDL Ratio 6.28 % 10/09/18 10:41 Prostate Specific Ag 2660.00 ng/mL (0.00-4.00) H 10/10/18 11:01 Urine Color [place] (Yellow) 10/09/18 11:39 Urine Turbidity Turbid (Clear) 10/09/18 11:39 Urine pH [employer] 10/09/18 11:39 Ur Specific [place] [employer] 10/09/18 11:39 Urine Protein Color interference mg/dL (Negative) 10/09/18 11:39 Urine Glucose (UA) Color interference mg/dL (Negative) 10/09/18 11:39 Urine Ketones Color interference mg/dL (Negative) 10/09/18 11:39 Urine Blood Color interference (Negative) 10/09/18 11:39 Urine Nitrite Color interference (Negative) 10/09/18 11:39 Urine Bilirubin Color interference (Negative) 10/09/18 11:39 Urine Ictotest Not Reportable 10/09/18 11:39 Urine Urobilinogen [employer] 10/09/18 11:39 Ur Leukocyte Esterase Color interference (Negative) 10/09/18 11:39 Urine WBC (Auto) > 182.0 /HPF (0.0-6.0) H 10/09/18 11:39 Urine RBC (Auto) > 182.0 /HPF (0.0-6.0) 10/09/18 11:39 Urine Bacteria (Auto) 4+ /HPF (Negative) 10/09/18 11:39 Hepatitis A IgM Ab Non-reactive (NonReactive) 10/10/18 18:00 Hep Bs Antigen Non-reactive (Negative) 10/10/18 18:00 Hep B Core IgM Ab Non-reactive (NonReactive) 10/10/18 18:00 Hepatitis C Antibody Non-reactive (NonReactive) 10/10/18 18:00 Blood Type O POSITIVE 10/15/18 16:11 Antibody Screen Negative 10/15/18 16:11 Crossmatch See Detail 10/15/18 16:11 Active Medications - Current Medications Current Medications: Generic Name Dose Route Start Last Admin Trade Name Freq PRN Reason Stop Dose Admin Acetaminophen 650 mg 10/09/18 22:03 10/16/18 08:28 Tylenol PO 650 mg Q4H PRN Administration Pain MILD(1-3)/Fever >100.5/DIAZ Acetaminophen 500 mg 10/09/18 22:06 Tylenol PO Q6HR PRN Pain, Moderate (4-6) Bacitracin 1 applic 10/13/18 16:00 10/16/18 09:50 Antibiotic Oint TP 1 applic BID ENRICO Administration Bicalutamide 50 mg 10/11/18 10:00 10/16/18 09:48 Casodex PO 50 mg QDAY ENRICO Administration Cholecalciferol 2,000 unit 10/10/18 10:00 10/16/18 09:48 Vitamin D3 PO 2,000 unit QDAY ENRICO Administration Epoetin Víctor 20,000 unit 10/10/18 14:00 10/13/18 11:48 Procrit IV 20,000 unit DAKOTA PRN Administration .anemia Famotidine 10 mg 10/09/18 23:00 10/16/18 09:48 Pepcid PO 10 mg BID ENRICO Administration Ferrous Sulfate 325 mg 10/10/18 10:00 10/16/18 09:48 Feosol PO 325 mg QDAY ENRICO Administration Heparin Sodium (Porcine) 5,000 unit 10/13/18 16:00 10/16/18 09:49 Heparin SUB-Q 5,000 unit Q12HR ENRICO Administration Hydromorphone HCl 0.25 mg 10/09/18 22:03 10/11/18 09:09 Dilaudid IV 0.25 mg Q3H PRN Administration Pain, Moderate (4-6) Sodium Chloride 100 mls @ 999 mls/hr 10/12/18 06:02 Nacl 0.9% IV DAKOTA PRN Hypotension Sodium Chloride 100 mls @ 999 mls/hr 10/16/18 11:58 Nacl 0.9% IV [place] PRN Hypotension Insulin Human Isoph/Insulin Regular 6 unit 10/15/18 17:00 10/16/18 08:29 Humulin 70/30 SUB-Q 6 unit BIDDIAB ENRICO Administration Insulin Human Lispro 0 unit 10/12/18 16:30 10/16/18 12:58 Humalog SUB-Q 3 unit ACHS ENRICO Administration Protocol Metoclopramide HCl 10 mg 10/09/18 20:01 10/10/18 18:12 Reglan IV 10 mg Q6H PRN Administration Nausea And Vomiting Mirtazapine 7.5 mg 10/09/18 22:00 10/15/18 22:18 Remeron PO 7.5 mg QHS ENRICO Administration Miscellaneous Medication 1,000 mg 10/10/18 10:00 Abiraterone Acetate (Nf) PO QDAY ENRICO Ondansetron HCl 4 mg 10/09/18 22:03 10/11/18 14:04 Zofran IV 4 mg Q8H PRN Administration Nausea And Vomiting Oxycodone/Acetaminophen 1 tab 10/09/18 22:03 10/15/18 05:50 Percocet 5/325 PO 1 tab Q6H PRN Administration Pain, Moderate (4-6) Prednisone 5 mg 10/10/18 10:00 10/16/18 09:48 Deltasone PO 5 mg QDAY ENR[place] Administration Senna 8.6 mg 10/09/18 22:06 10/10/18 22:32 Senokot PO 8.6 mg DAILY PRN Administration Constipation Sevelamer Carbonate 800 mg 10/10/18 08:00 10/16/18 12:58 Renvela PO 800 mg TIDWM ENRICO Administration Sodium Chloride 10 ml 10/10/18 10:00 10/16/18 09:50 Sodium Chloride Flush Syringe 10 Ml IV 10 ml BID ENRICO Administration Sodium Chloride 10 ml 10/09/18 22:03 10/11/18 14:04 Sodium Chloride Flush Syringe 10 Ml IV 10 ml PRN PRN Administration LINE FLUSH Venlafaxine HCl 25 mg 10/09/18 23:00 10/16/18 09:48 Effexor PO 25 mg BID ENRICO Administration
[2018-10-16] MEDS ORDERED: NACL 0.9 (PRIMING MACHINE ONLY DIALYSIS) MC ONE (20:22)
[2018-10-16] MEDS: REMERON PO SCH (22:22)
[2018-10-17 05:24] LABS: Hematocrit 25.2 % (35.5-45.6); Hemoglobin 8.5 gm/dl (11.8-15.2); Mean Corpuscular HGB Conc 34 % (32-34); Mean Corpuscular Volume 86 fl (84-94); Platelet Count 294 K/mm3 (140-440); Red Blood Count 2.92 M/mm3 (3.65-5.03); Red Cell Distribution Width 17.8 % (13.2-15.2)
[2018-10-17 06:06] LABS: Calcium 9.9 mg/dL (8.4-10.2)
[2018-10-17 08:15] LABS: Band Neutrophils # (Manual) 0.8 K/mm3; Basophils % (Manual) 0 % (0.0-1.8); Eosinophils % (Manual) 0 % (0.0-4.3); Total Cells Counted 100
[2018-10-17 08:16] LABS: Anisocytosis 1+; Platelet Estimate Cons; Target Cells Rare
--- NOTE | 2018-10-17 09:00 | Progress Note ---
Assessment and Plan Assessment: * End stage renal disease on IHD * Sepsis * Altered mental status * Prostate CA s/p percutaneous nephrostomy tubes * Hypertension * Type II DM * Anemia secondary to ESRD * Secondary hyperparathyroidism * MRSA colonization Plan: * Continue MWF HD schedule * UF as tolerated * Transfuse pRBC prn * Empiric abx per primary team - blood cx NGTD * Epogen TIW prn * Urology recommendations noted * Renal diet Subjective Date of service: 10/17/18 Principal diagnosis: end-stage renal disease,Sepsis Interval history: Patient has no complaints today Objective - Vital Signs Vital signs: Vital Signs - 12hr 10/16/18 10/16/18 10/16/18 22:00 22:21 23:21 Temperature Pulse Rate Respiratory 18 18 20 Rate Blood Pressure O2 Sat by Pulse 99 Oximetry 10/17/18 10/17/18 10/17/18 02:49 07:13 08:01 Temperature 98.5 F 99.4 F Pulse Rate 91 H 90 Respiratory 18 20 Rate Blood Pressure 105/60 110/60 O2 Sat by Pulse 98 97 97 Oximetry - General Appearance General appearance: frail EENT: ATNC Respiratory: Present: Clear to Ascultation Cardiology: regular, S1S2 Gastrointestinal: normal, no tenderness, no distended Integumentary: no rash Neurologic: no focal deficit Musculoskeletal: other (no wdema) Psychiatric: cooperative - Lab 10/17/18 04:43 10/17/18 04:43 Most recent lab results Calcium 9.9 mg/dL (8.4-10.2) 10/17/18 04:43 Medications & Allergies - Medications Allergies/Adverse Reactions: Allergies No Known Allergies Allergy (Unverified 10/09/18 11:11) Home Medications: Home Medications Medication Instructions Recorded Confirmed Last Taken Type Abiraterone Acetate (Nf) [Zytiga 1,000 mg PO QDAY 10/09/18 10/09/18 Unknown H istory (Nf)] Acetaminophen [Tylenol] 500 mg PO Q6HR PRN 10/09/18 10/09/18 Unknown History Cholecalciferol Vit D3 [Vitamin D3 2,000 unit PO QDAY 10/09/18 10/09/18 Unknown History 1,000 UNIT TAB] Ferrous Sulfate [Iron] 325 mg PO QDAY 10/09/18 10/09/18 Unknown History HYDROcodone/APAP 5-325 [Noti 1 each PO Q6HR PRN 10/09/18 10/09/18 Unknown History 5/325] Mirtazapine 7.5 mg PO HS 10/09/18 10/09/18 Unknown History Multivit-Min/FA/Lycopen/Lutein 1 each PO DAILY 10/09/18 10/09/18 Unknown History [Men 50 Plus Multivitamin Tab] Ondansetron [Zofran ODT TAB] 8 mg PO Q8HR PRN 10/09/18 10/09/18 Unknown History Polyethylene Glycol 3350 17 gm PO PRN PRN 10/09/18 10/09/18 Unknown History [Smoothlax] Sennosides [Senna Laxative] 8.6 mg PO PRN PRN 10/09/18 10/09/18 Unknown History Sevelamer Carbonate [Renvela] 800 mg PO TIDWM 10/09/18 10/09/18 Unknown History Venlafaxine [Effexor 25mg tab] 25 mg PO BID 10/09/18 10/09/18 Unknown History predniSONE [Prednisone] 5 mg PO QDAY 10/09/18 10/09/18 Unknown History Active Medications: Generic Name Dose Route Start Last Admin Trade Name Freq PRN Reason Stop Dose Admin Acetaminophen 650 mg 10/09/18 22:03 10/16/18 08:28 Tylenol PO 650 mg Q4H PRN Administration Pain MILD(1-3)/Fever >100.5/DIAZ Acetaminophen 500 mg 10/09/18 22:06 10/16/18 22:21 Tylenol PO 500 mg Q6HR PRN Administration Pain, Moderate (4-6) Bacitracin 1 applic 10/13/18 16:00 10/16/18 22:21 Antibiotic Oint TP 1 applic BID ENRICO Administration Bicalutamide 50 mg 10/11/18 10:00 10/16/18 09:48 Casodex PO 50 mg QDAY ENRICO Administration Cholecalciferol 2,000 unit 10/10/18 10:00 10/16/18 09:48 Vitamin D3 PO 2,000 unit QDAY ENRICO Administration Epoetin Víctor 20,000 unit 10/10/18 14:00 10/13/18 11:48 Procrit IV 20,000 unit [place] PRN Administration .anemia Famotidine 10 mg 10/09/18 23:00 10/16/18 22:22 Pepcid PO 10 mg BID ENR[place] Administration Ferrous Sulfate 325 mg 10/10/18 10:00 10/16/18 09:48 Feosol PO 325 mg QDAY COUNTS INCLUDE 234 BEDS AT THE [facility] Administration Heparin Sodium (Porcine) 5,000 unit 10/13/18 16:00 10/16/18 22:23 Heparin SUB-Q 5,000 unit Q12HR ENRICO Administration Hydromorphone HCl 0.25 mg 10/09/18 22:03 10/11/18 09:09 Dilaudid IV 0.25 mg Q3H PRN Administration Pain, Moderate (4-6) Sodium Chloride 100 mls @ 999 mls/hr 10/12/18 06:02 Nacl 0.9% IV [place] PRN Hypotension Sodium Chloride 100 mls @ 999 mls/hr 10/16/18 11:58 Nacl 0.9% IV [place] PRN Hypotension Insulin Human Isoph/Insulin Regular 6 unit 10/15/18 17:00 10/16/18 17:53 Humulin 70/30 SUB-Q 6 unit BIDDIAB ENRICO Administration Insulin Human Lispro 0 unit 10/12/18 16:30 10/16/18 22:22 Humalog SUB-Q Not Given ACHS COUNTS INCLUDE 234 BEDS AT THE [facility] Protocol Metoclopramide HCl 10 mg 10/09/18 20:01 10/10/18 18:12 Reglan IV 10 mg Q6H PRN Administration Nausea And Vomiting Mirtazapine 7.5 mg 10/09/18 22:00 10/16/18 22:22 Remeron PO 7.5 mg QHS ENRICO Administration Miscellaneous Medication 1,000 mg 10/10/18 10:00 Abiraterone Acetate (Nf) PO QDAY COUNTS INCLUDE 234 BEDS AT THE [facility] Ondansetron HCl 4 mg 10/09/18 22:03 10/11/18 14:04 Zofran IV 4 mg Q8H PRN Administration Nausea And Vomiting Oxycodone/Acetaminophen 1 tab 10/09/18 22:03 10/15/18 05:50 Percocet 5/325 PO 1 tab Q6H PRN Administration Pain, Moderate (4-6) Prednisone 5 mg 10/10/18 10:00 10/16/18 09:48 Deltasone PO 5 mg QDAY COUNTS INCLUDE 234 BEDS AT THE [facility] Administration Senna 8.6 mg 10/09/18 22:06 10/10/18 22:32 Senokot PO 8.6 mg DAILY PRN Administration Constipation Sevelamer Carbonate 800 mg 10/10/18 08:00 10/16/18 17:54 Renvela PO 800 mg TIDWM ENRICO Administration Sodium Chloride 10 ml 10/10/18 10:00 10/16/18 22:24 Sodium Chloride Flush Syringe 10 Ml IV 10 ml BID ENRICO Administration Sodium Chloride 10 ml 10/09/18 22:03 10/11/18 14:04 Sodium Chloride Flush Syringe 10 Ml IV 10 ml PRN PRN Administration LINE FLUSH Venlafaxine HCl 25 mg 10/09/18 23:00 10/16/18 22:22 Effexor PO 25 mg BID ENRICO Administration
--- NOTE | 2018-10-17 09:17 | Progress Note ---
Assessment and Plan Microbiology: 10/09/2018 blood culture: No growth 10/09/2018 MRSA nares culture: Positive 10/11/2018 urine culture: No growth A/P 63-year-old male with ESRD on hemodialysis, hypertension, diabetes, anemia, history of metastatic prostate cancer for which he recently underwent a percutaneous nephrostomy due to placement and was started on Casodex, was brought to the emergency room from a [facility] after he became confused and fell: 1) Concern for sepsis: Leukocytosis continuing, trending down. .Leukocytosis could be reactive due to the large right-sided subcapsular hematoma compressing the right kidney. Blood cultures have been negative. Urine cultures also without growth. 2) Complicated UTI with right Nephrostomy tube UA with significant hematuria and pyuria. Urine culture shows no growth to date. Patient is an ESRD patient, hence difficult to interpret the UA, states he doesn't make much urine. Reasonable to complete empiric course of 7 days of antibiotics. Continue ceftriaxone. 3) Positive MRSA nasal culture: Continue contact isolation. 4) Metastatic prostate cancer: was recently started on Casodex, apparently gets care at the [facility]. 5) ESRD: on HD. Nephrology following. Renally dose abx and meds. Recs: Continue ceftriaxone, I gm IV q 24, D7 Contact isolation for MRSA Anticipate discharge on Ceftin 500 mg PO every 24 hours for total 10 days ending 10-20-18 [facility] M: [phone] O:[phone] Subjective Date of service: 10/17/18 Principal diagnosis: end-stage renal disease,Sepsis Interval history: Patient seen and examined. Siting up in the chair with PT. Stated that he was feeling better today, No pain, SOB or fevers. Objective - Exam Narrative Exam: Constitutional: Alert, cooperative. No acute distress Head, Ears, Nose: Normocephalic, atraumatic. External ears, nose normal Eyes: Conjunctivae/corneas clear. No icterus. No ptosis. Neck: Supple, no meningeal signs Cardiovascular: S1, S2 normal. Respiratory: Good air entry, clear to auscultation bilaterally GI: Soft, non-tender; bowel sounds normal. No peritoneal signs. Right nephrostomy tube +. right upper chest HD cath + Musculoskeletal: No pedal edema, no cyanosis. Skin: No rash or abscess Hem/Lymphatic: No palpable cervical or supraclavicular nodes. No lymphangitis Psych: Mood ok. Affect normal Neurological: Awake, alert, oriented. No gross abnormality - Constitutional Vitals: Vital Signs Temp Pulse Resp BP Pulse Ox 99.4 F 90 20 110/60 97 10/17/18 07:13 10/17/18 07:13 10/17/18 07:13 10/17/18 07:13 10/17/18 08:01 Temperature -Last 24 Hours Temperature 99.4 F Temperature 98.5 F Temperature 99.6 F Temperature 98.0 F Temperature 98.7 F Temperature 98.7 F Temperature 98.7 F Temperature 98.7 F Temperature 98.7 F Temperature 98.8 F Temperature 98.7 F Temperature 98.8 F - Labs CBC & Chem 7: 10/17/18 04:43 10/17/18 04:43 Labs: Abnormal lab results 10/15/18 10/16/18 10/16/18 Range/Units 16:11 11:30 17:46 WBC (4.5-11.0) K/mm3 RBC (3.65-5.03) M/mm3 Hgb (11.8-15.2) gm/dl Hct (35.5-45.6) % RDW (13.2-15.2) % Seg Neuts % (Manual) (40.0-70.0) % Lymphocytes % (Manual) (13.4-35.0) % Nucleated RBC % (0.0-0.9) % Seg Neutrophils # Man (1.8-7.7) K/mm3 Lymphocytes # (Manual) (1.2-5.4) K/mm3 Sodium (137-145) mmol/L Potassium (3.6-5.0) mmol/L Chloride (98-107) mmol/L Creatinine (0.8-1.5) mg/dL POC Glucose 178 H 159 H (70-105) Crossmatch See Detail 10/17/18 10/17/18 Range/Units 04:43 04:43 WBC 11.1 H (4.5-11.0) K/mm3 RBC 2.92 L (3.65-5.03) M/mm3 Hgb 8.5 L (11.8-15.2) gm/dl Hct 25.2 L (35.5-45.6) % RDW 17.8 H (13.2-15.2) % Seg Neuts % (Manual) 77.0 H (40.0-70.0) % Lymphocytes % (Manual) 6.0 L (13.4-35.0) % Nucleated RBC % 2.0 H (0.0-0.9) % Seg Neutrophils # Man 8.5 H (1.8-7.7) K/mm3 Lymphocytes # (Manual) 0.7 L (1.2-5.4) K/mm3 Sodium 136 L (137-145) mmol/L Potassium 3.4 L (3.6-5.0) mmol/L Chloride 96.4 L (98-107) mmol/L Creatinine 3.5 H (0.8-1.5) mg/dL POC Glucose (70-105) Crossmatch
--- NOTE | 2018-10-17 09:21 | Progress Note ---
Assessment and Plan Assessment and plan: --Hyperglycemia Well-controlled hemoglobin A1c 6, patient is on long-term low-dose steroid Accu-Chek sliding scale coverage, low-dose long-acting insulin 7030, closely monitor -- Anemia s/p 2 unit of PRBC transfusion, Hb improved from 6.3 to 6.9-8.5 Continue Epogen during dialysis -- Sepsis Sepsis secondary to urinary tract infection SIRS criteria 2 out of 4 Leukocytosis and tachycardia More alert and oriented --Acute Encephalopathy Secondary to Uremia and Sepsis improving More Communicative --Chronic Pain Pain control with Analgesics -- End stage renal disease End-stage renal disease Access right IJ catheter Receive dialysis on 10/10/2018 on dialysis Repeat dialysis in the a.m. -- Hypertension Moderate control, continue current antihypertensives and when necessary medications --History of prostate Cancer /Nephrostomy tube Urology following, nephrostomy care Patient has follow-up neurology appointment tomorrow Check with Urology the plan of care --MRSA in Nares Contact isolation, bacitracin ointment, ID evaluation if needed --DVT Prophylaxis On Heparin and GI prophylaxis Physical therapy occupational therapy Plan of care reviewed with the patient and his nurse. History Interval history: Patient seen and examined medical records reviewed no new events reported by the nursing Hemoglobin improved after 2 units of transfusion Confused but in no new complaints Vital signs noted Hospitalist Physical - Constitutional Vitals: Temp Pulse Resp BP Pulse Ox 99.4 F 90 20 110/60 97 10/17/18 07:13 10/17/18 07:13 10/17/18 07:13 10/17/18 07:13 10/17/18 08:01 General appearance: Present: no acute distress, well-nourished - EENT Eyes: Present: PERRL, EOM intact - Neck Neck: Present: supple, normal ROM - Respiratory Respiratory effort: normal Respiratory: bilateral: diminished, negative: rales, rhonchi, wheezing - Cardiovascular Rhythm: regular Heart Sounds: Present: S1 & S2 - Extremities Extremities: no ischemia, No edema - Abdominal General gastrointestinal: soft, non-tender, non-distended, normal bowel sounds, other (nephrostomy tube and drainage. Intact) - Integumentary Integumentary: Present: clear, warm - Psychiatric Psychiatric: appropriate mood/affect, cooperative - Neurologic Neurologic: moves all extremities Results - Labs CBC & Chem 7: 10/17/18 04:43 10/17/18 04:43 Labs: Laboratory Last Values WBC 11.1 K/mm3 (4.5-11.0) H 10/17/18 04:43 RBC 2.92 M/mm3 (3.65-5.03) L 10/17/18 04:43 Hgb 8.5 gm/dl (11.8-15.2) L 10/17/18 04:43 Hct 25.2 % (35.5-45.6) L 10/17/18 04:43 MCV 86 fl (84-94) 10/17/18 04:43 MCH 29 pg (28-32) 10/17/18 04:43 MCHC 34 % (32-34) 10/17/18 04:43 RDW 17.8 % (13.2-15.2) H 10/17/18 04:43 Plt Count 294 K/mm3 (140-440) 10/17/18 04:43 Lymph % (Auto) Floral Manager 10/09/18 10:41 Jennings % (Auto) Floral Manager 10/09/18 10:41 Eos % (Auto) Floral Manager 10/09/18 10:41 Baso % (Auto) Floral Manager 10/09/18 10:41 Lymph # Floral Manager 10/09/18 10:41 Jennings # Floral Manager 10/09/18 10:41 Eos # Floral Manager 10/09/18 10:41 Baso # Floral Manager 10/09/18 10:41 Add Manual Diff Complete 10/17/18 04:43 Total Counted 100 10/17/18 04:43 Seg Neutrophils % Floral Manager 10/09/18 10:41 Seg Neuts % (Manual) 77.0 % (40.0-70.0) H 10/17/18 04:43 Band Neutrophils % 7.0 % 10/17/18 04:43 Lymphocytes % (Manual) 6.0 % (13.4-35.0) L 10/17/18 04:43 Reactive Lymphs % (Man) 0 % 10/17/18 04:43 Monocytes % (Manual) 7.0 % (0.0-7.3) 10/17/18 04:43 Eosinophils % (Manual) 0 % (0.0-4.3) 10/17/18 04:43 Basophils % (Manual) 0 % (0.0-1.8) 10/17/18 04:43 Metamyelocytes % 3.0 % 10/17/18 04:43 Myelocytes % 0 % 10/17/18 04:43 Promyelocytes % 0 % 10/17/18 04:43 Blast Cells % 0 % 10/17/18 04:43 Nucleated RBC % 2.0 % (0.0-0.9) H 10/17/18 04:43 Seg Neutrophils # Floral Manager 10/09/18 10:41 Seg Neutrophils # Man 8.5 K/mm3 (1.8-7.7) H 10/17/18 04:43 Band Neutrophils # 0.8 K/mm3 10/17/18 04:43 Lymphocytes # (Manual) 0.7 K/mm3 (1.2-5.4) L 10/17/18 04:43 Abs React Lymphs (Man) 0.0 K/mm3 10/17/18 04:43 Monocytes # (Manual) 0.8 K/mm3 (0.0-0.8) 10/17/18 04:43 Eosinophils # (Manual) 0.0 K/mm3 (0.0-0.4) 10/17/18 04:43 Basophils # (Manual) 0.0 K/mm3 (0.0-0.1) 10/17/18 04:43 Metamyelocytes # 0.3 K/mm3 10/17/18 04:43 Myelocytes # 0.0 K/mm3 10/17/18 04:43 Promyelocytes # 0.0 K/mm3 10/17/18 04:43 Blast Cells # 0.0 K/mm3 10/17/18 04:43 WBC Morphology Not Reportable 10/17/18 04:43 Hypersegmented Neuts Not Reportable 10/17/18 04:43 Hyposegmented Neuts Not Reportable 10/17/18 04:43 Hypogranular Neuts Not Reportable 10/17/18 04:43 Smudge Cells Not Reportable 10/17/18 04:43 Toxic Granulation Not Reportable 10/17/18 04:43 Toxic Vacuolation Not Reportable 10/17/18 04:43 Dohle Bodies Not Reportable 10/17/18 04:43 Pelger-Huet Anomaly Not Reportable 10/17/18 04:43 Bridget Rods Not Reportable 10/17/18 04:43 Platelet Estimate Cons 10/17/18 04:43 Clumped Platelets Not Reportable 10/17/18 04:43 Plt Clumps, EDTA Not Reportable 10/17/18 04:43 Large Platelets Not Reportable 10/17/18 04:43 Giant Platelets Not Reportable 10/17/18 04:43 Platelet Satelliting Not Reportable 10/17/18 04:43 Plt Morphology Comment Not Reportable 10/17/18 04:43 RBC Morphology Not Reportable 10/17/18 04:43 Dimorphic RBCs Not Reportable 10/17/18 04:43 Polychromasia Not Reportable 10/17/18 04:43 Hypochromasia Not Reportable 10/17/18 04:43 Poikilocytosis Not Reportable 10/17/18 04:43 Anisocytosis 1+ 10/17/18 04:43 Microcytosis Not Reportable 10/17/18 04:43 Macrocytosis Not Reportable 10/17/18 04:43 Spherocytes Not Reportable 10/17/18 04:43 Pappenheimer Bodies Not Reportable 10/17/18 04:43 Sickle Cells Not Reportable 10/17/18 04:43 Target Cells Rare 10/17/18 04:43 Tear Drop Cells Not Reportable 10/17/18 04:43 Ovalocytes Not Reportable 10/17/18 04:43 Helmet Cells Not Reportable 10/17/18 04:43 Za[place] Bodies Not Reportable 10/17/18 04:43 [place] Rings Not Reportable 10/17/18 04:43 [place] Cells Not Reportable 10/17/18 04:43 Bite Cells Not Reportable 10/17/18 04:43 Crenated Cell Not Reportable 10/17/18 04:43 Elliptocytes Not Reportable 10/17/18 04:43 Acanthocytes (Spur) Not Reportable 10/17/18 04:43 Rouleaux Not Reportable 10/17/18 04:43 Hemoglobin C Crystals Not Reportable 10/17/18 04:43 Schistocytes Not Reportable 10/17/18 04:43 Malaria parasites Not Reportable 10/17/18 04:43 Oswald Bodies Not Reportable 10/17/18 04:43 Hem Pathologist Commnt No 10/17/18 04:43 PT 16.2 Sec. (12.2-14.9) H 10/09/18 10:41 INR 1.22 (0.87-1.13) H 10/09/18 10:41 APTT 30.9 Sec. (24.2-36.6) 10/09/18 10:41 Sodium 136 mmol/L (137-145) L 10/17/18 04:43 Potassium 3.4 mmol/L (3.6-5.0) L 10/17/18 04:43 Chloride 96.4 mmol/L (98-107) L 10/17/18 04:43 Carbon Dioxide 30 mmol/L (22-30) 10/17/18 04:43 Anion Gap 13 mmol/L 10/17/18 04:43 BUN 17 mg/dL (9-20) 10/17/18 04:43 Creatinine 3.5 mg/dL (0.8-1.5) H 10/17/18 04:43 Estimated GFR 21 ml/min 10/17/18 04:43 BUN/Creatinine Ratio 5 % 10/17/18 04:43 Glucose 82 mg/dL (75-100) 10/17/18 04:43 POC Glucose 94 (70-105) 10/17/18 07:16 Hemoglobin A1c 6.0 % (4-6) 10/09/18 22:51 Lactic Acid 1.00 mmol/L (0.7-2.0) 10/10/18 06:02 Calcium 9.9 mg/dL (8.4-10.2) 10/17/18 04:43 Total Bilirubin 0.60 mg/dL (0.1-1.2) 10/10/18 06:02 Direct Bilirubin 0.5 mg/dL (0-0.2) H 10/09/18 10:41 Indirect Bilirubin 0.4 mg/dL 10/09/18 10:41 AST 18 units/L (5-40) 10/10/18 06:02 ALT 13 units/L (7-56) 10/10/18 06:02 Alkaline Phosphatase 181 units/L (35-129) H 10/10/18 06:02 Ammonia 33.0 umol/L (25-60) 10/09/18 10:41 Troponin T 0.233 ng/mL (0.00-0.029) H* 10/09/18 10:41 Total Protein 6.4 g/dL (6.3-8.2) 10/10/18 06:02 Albumin 2.7 g/dL (3.9-5) L 10/10/18 06:02 Albumin/Globulin Ratio 0.7 % 10/10/18 06:02 Triglycerides 274 mg/dL (2-149) H 10/09/18 10:41 Cholesterol 176 mg/dL (50-199) 10/09/18 10:41 LDL Cholesterol Direct 61 mg/dL (50-130) 10/09/18 10:41 HDL Cholesterol 28 mg/dL (40-59) L 10/09/18 10:41 Cholesterol/HDL Ratio 6.28 % 10/09/18 10:41 Prostate Specific Ag 2660.00 ng/mL (0.00-4.00) H 10/10/18 11:01 Urine Color Alla (Yellow) 10/09/18 11:39 Urine Turbidity Turbid (Clear) 10/09/18 11:39 Urine pH Floral Manager 10/09/18 11:39 Ur Specific [place] Floral Manager 10/09/18 11:39 Urine Protein Color interference mg/dL (Negative) 10/09/18 11:39 Urine Glucose (UA) Color interference mg/dL (Negative) 10/09/18 11:39 Urine Ketones Color interference mg/dL (Negative) 10/09/18 11:39 Urine Blood Color interference (Negative) 10/09/18 11:39 Urine Nitrite Color interference (Negative) 10/09/18 11:39 Urine Bilirubin Color interference (Negative) 10/09/18 11:39 Urine Ictotest Not Reportable 10/09/18 11:39 Urine Urobilinogen Floral Manager 10/09/18 11:39 Ur Leukocyte Esterase Color interference (Negative) 10/09/18 11:39 Urine WBC (Auto) > 182.0 /HPF (0.0-6.0) H 10/09/18 11:39 Urine RBC (Auto) > 182.0 /HPF (0.0-6.0) 10/09/18 11:39 Urine Bacteria (Auto) 4+ /HPF (Negative) 10/09/18 11:39 Hepatitis A IgM Ab Non-reactive (NonReactive) 10/10/18 18:00 Hep Bs Antigen Non-reactive (Negative) 10/10/18 18:00 Hep B Core IgM Ab Non-reactive (NonReactive) 10/10/18 18:00 Hepatitis C Antibody Non-reactive (NonReactive) 10/10/18 18:00 Blood Type O POSITIVE 10/15/18 16:11 Antibody Screen Negative 10/15/18 16:11 Crossmatch See Detail 10/15/18 16:11 Active Medications - Current Medications Current Medications: Generic Name Dose Route Start Last Admin Trade Name Freq PRN Reason Stop Dose Admin Acetaminophen 650 mg 10/09/18 22:03 10/16/18 08:28 Tylenol PO 650 mg Q4H PRN Administration Pain MILD(1-3)/Fever >100.5/DIAZ Acetaminophen 500 mg 10/09/18 22:06 10/16/18 22:21 Tylenol PO 500 mg Q6HR PRN Administration Pain, Moderate (4-6) Bacitracin 1 applic 10/13/18 16:00 10/16/18 22:21 Antibiotic Oint TP 1 applic BID ENRICO Administration Bicalutamide 50 mg 10/11/18 10:00 10/16/18 09:48 Casodex PO 50 mg QDAY ENRICO Administration Cholecalciferol 2,000 unit 10/10/18 10:00 10/16/18 09:48 Vitamin D3 PO 2,000 unit QDAY ENRICO Administration Epoetin Víctor 20,000 unit 10/10/18 14:00 10/13/18 11:48 Procrit IV 20,000 unit DAKOTA PRN Administration .anemia Famotidine 10 mg 10/09/18 23:00 10/16/18 22:22 Pepcid PO 10 mg BID ENRICO Administration Ferrous Sulfate 325 mg 10/10/18 10:00 10/16/18 09:48 Feosol PO 325 mg QDAY ENRICO Administration Heparin Sodium (Porcine) 5,000 unit 10/13/18 16:00 10/16/18 22:23 Heparin SUB-Q 5,000 unit Q12HR ENRICO Administration Hydromorphone HCl 0.25 mg 10/09/18 22:03 10/11/18 09:09 Dilaudid IV 0.25 mg Q3H PRN Administration Pain, Moderate (4-6) Sodium Chloride 100 mls @ 999 mls/hr 10/12/18 06:02 Nacl 0.9% IV DAKOTA PRN Hypotension Sodium Chloride 100 mls @ 999 mls/hr 10/16/18 11:58 Nacl 0.9% IV DAKOTA PRN Hypotension Ceftriaxone Sodium 1 gm in 50 mls @ 100 mls/hr 10/17/18 10:00 Rocephin/Ns 1 Gm/50 Ml IV Q24HR [facility] Protocol Insulin Human Isoph/Insulin Regular 6 unit 10/15/18 17:00 10/16/18 17:53 Humulin 70/30 SUB-Q 6 unit BIDDIAB ENRICO Administration Insulin Human Lispro 0 unit 10/12/18 16:30 10/16/18 22:22 Humalog SUB-Q Not Given ACHS [facility] Protocol Metoclopramide HCl 10 mg 10/09/18 20:01 10/10/18 18:12 Reglan IV 10 mg Q6H PRN Administration Nausea And Vomiting Mirtazapine 7.5 mg 10/09/18 22:00 10/16/18 22:22 Remeron PO 7.5 mg QHS ENRICO Administration Miscellaneous Medication 1,000 mg 10/10/18 10:00 Abiraterone Acetate (Nf) PO QDAY ENRICO Ondansetron HCl 4 mg 10/09/18 22:03 10/11/18 14:04 Zofran IV 4 mg Q8H PRN Administration Nausea And Vomiting Oxycodone/Acetaminophen 1 tab 10/09/18 22:03 10/15/18 05:50 Percocet 5/325 PO 1 tab Q6H PRN Administration Pain, Moderate (4-6) Prednisone 5 mg 10/10/18 10:00 10/16/18 09:48 Deltasone PO 5 mg QDAY E[place] Administration Senna 8.6 mg 10/09/18 22:06 10/10/18 22:32 Senokot PO 8.6 mg DAILY PRN Administration Constipation Sevelamer Carbonate 800 mg 10/10/18 08:00 10/16/18 17:54 Renvela PO 800 mg TIDWM ENRICO Administration Sodium Chloride 10 ml 10/10/18 10:00 10/16/18 22:24 Sodium Chloride Flush Syringe 10 Ml IV 10 ml BID ENRICO Administration Sodium Chloride 10 ml 10/09/18 22:03 10/11/18 14:04 Sodium Chloride Flush Syringe 10 Ml IV 10 ml PRN PRN Administration LINE FLUSH Venlafaxine HCl 25 mg 10/09/18 23:00 10/16/18 22:22 Effexor PO 25 mg BID ENRICO Administration Nutrition/Malnutrition Assess - Dietary Evaluation Nutrition/Malnutrition Findings: Nutrition Notes Start: 10/16/18 15:45 Freq: Status: Active Protocol: Document 10/16/18 15:45 RM (Rec: 10/16/18 15:50 RM [email or web address]) Nutrition Notes Need for Assessment generated from: LOS Initial or Follow up Brief Note Other Pertinent Diagnosis ESRD on HD,Chronic constipation,Depression,Hx prostate cancer Current Diet Mech soft w/Nepro Vanilla TID Labs/Tests A1c 6 Pertinent Medications Reviewed Height 5 ft 6 in Weight 70.7 kg [place] Body Weight (kg) 64.54 BMI 25.1 Subjective/Other Information Screened for LOS. Pt stated that his appetite is good but that he eats bites of his meals d/t disliking the facility's food. Stated that he eats outside food brought in by family ie: soups, chicken salad. Noted preferences. Stated he drinks the Nepro and likes it. Offered DM diet education for prevention of DM Dx. Pt stated that he has been a diabetic for years and that he brought down his A1c. Burn Absent Trauma Absent
[2018-10-17] MEDS: VITAMIN D3 PO SCH (10:46)
[2018-10-17] MEDS: RENVELA PO SCH ×2 (10:47→11:53)
[2018-10-17] MEDS: HEPARIN SUB-Q SCH ×2 (10:48→22:00)
[2018-10-17] MEDS: SODIUM CHLORIDE FLUSH SYRINGE 10 ML IV SCH ×2 (10:48→22:01)
[2018-10-17] MEDS: FEOSOL PO SCH (10:48)
[2018-10-17] MEDS: PEPCID PO SCH ×2 (10:48→22:00)
[2018-10-17] MEDS: DELTASONE PO SCH (10:48)
[2018-10-17] MEDS: CASODEX PO SCH (10:48)
[2018-10-17] MEDS: HumaLOG SUB-Q SCH ×3 (10:54→23:34)
[2018-10-17] MEDS: ROCEPHIN/NS 1 GM/50 ML 1 GM/50 ML BAG IV SCH (11:13)
[2018-10-17] MEDS: ANTIBIOTIC OINT TP SCH ×2 (11:14→23:34)
[2018-10-17] MEDS: EFFEXOR PO SCH ×2 (11:48→22:00)
--- NOTE | 2018-10-17 18:30 | Progress Note ---
Subjective Date of service: 10/17/18 Principal diagnosis: end-stage renal disease,Sepsis Interval history: CC prostate cancer, renal failure (NEW TO OUR PRACTICE) Patient was 63 minutes old male with history of end-stage renal disease on hemodialysis, hypertension, diabetes, anemia, prostate cancer and nephrostomy tube. Patient brought to the emergency via EMS from [facility] after patient became confused and altered after he sustained a fall from his bed.*Facility stated that patient was fine before the fall. In the emergency room patient is alert, oriented to place only. Patient moving all his extremities. No facial droop. No speech problem. Patient denied any chest pain, shortness of breath, fever or chills. Patient denied any weakness, numbness or tingling sensation. NO ACUTE PROBLEM Former present 10-11-18. Pt gets care at [facility]. He was recently in hosptial when perc tube placed and started dialysis he is on new prostate cancer medication psa 2660----started Casodex alert ,oriented ABD SOFT RT PERC TUBE - SMALL AMOUNT NIXON URINE + DIAPER A/P HX OF PROSTATE CA PER CHART KIDNEY FAILURE WITH RT PERC TUBE continue care transition back to [place] when stable Pt states was to have appt today at [facility] (pt was given my card--he is contact [facility] urologist & I can do what ever is needed in hospital) Per discusssion with former last 10-11-18---pt is on an andvance prostate ca protocol---I provided pt with information Objective - Constitutional Vitals: Vital Signs - 12hr 10/17/18 10/17/18 10/17/18 07:13 08:01 14:11 Temperature 99.4 F 100.2 F H Pulse Rate 90 Respiratory 20 20 Rate Blood Pressure 110/60 115/61 O2 Sat by Pulse 97 97 Oximetry - Labs CBC & Chem 7: 10/17/18 04:43 10/17/18 04:43 Labs: Abnormal lab results 10/17/18 10/17/18 10/17/18 Range/Units 04:43 04:43 11:44 WBC 11.1 H (4.5-11.0) K/mm3 RBC 2.92 L (3.65-5.03) M/mm3 Hgb 8.5 L (11.8-15.2) gm/dl Hct 25.2 L (35.5-45.6) % RDW 17.8 H (13.2-15.2) % Seg Neuts % (Manual) 77.0 H (40.0-70.0) % Lymphocytes % (Manual) 6.0 L (13.4-35.0) % Nucleated RBC % 2.0 H (0.0-0.9) % Seg Neutrophils # Man 8.5 H (1.8-7.7) K/mm3 Lymphocytes # (Manual) 0.7 L (1.2-5.4) K/mm3 Sodium 136 L (137-145) mmol/L Potassium 3.4 L (3.6-5.0) mmol/L Chloride 96.4 L (98-107) mmol/L Creatinine 3.5 H (0.8-1.5) mg/dL POC Glucose 240 H (70-105) 10/17/18 Range/Units 16:43 WBC (4.5-11.0) K/mm3 RBC (3.65-5.03) M/mm3 Hgb (11.8-15.2) gm/dl Hct (35.5-45.6) % RDW (13.2-15.2) % Seg Neuts % (Manual) (40.0-70.0) % Lymphocytes % (Manual) (13.4-35.0) % Nucleated RBC % (0.0-0.9) % Seg Neutrophils # Man (1.8-7.7) K/mm3 Lymphocytes # (Manual) (1.2-5.4) K/mm3 Sodium (137-145) mmol/L Potassium (3.6-5.0) mmol/L Chloride (98-107) mmol/L Creatinine (0.8-1.5) mg/dL POC Glucose 151 H (70-105) Medications & Allergies - Medications Allergies/Adverse Reactions: Allergies No Known Allergies Allergy (Unverified 10/09/18 11:11) Home Medications: Home Medications Medication Instructions Recorded Confirmed Last Taken Type Abiraterone Acetate (Nf) [Zytiga 1,000 mg PO QDAY 10/09/18 10/09/18 Unknown History (Nf)] Acetaminophen [Tylenol] 500 mg PO Q6HR PRN 10/09/18 10/09/18 Unknown History Cholecalciferol Vit D3 [Vitamin D3 2,000 unit PO QDAY 10/09/18 10/09/18 Unknown History 1,000 UNIT TAB] Ferrous Sulfate [Iron] 325 mg PO QDAY 10/09/18 10/09/18 Unknown History HYDROcodone/APAP 5-325 [Reyno 1 each PO Q6HR PRN 10/09/18 10/09/18 Unknown History 5/325] Mirtazapine 7.5 mg PO HS 10/09/18 10/09/18 Unknown History Multivit-Min/FA/Lycopen/Lutein 1 each PO DAILY 10/09/18 10/09/18 Unknown History [Men 50 Plus Multivitamin Tab] Ondansetron [Zofran ODT TAB] 8 mg PO Q8HR PRN 10/09/18 10/09/18 Unknown History Polyethylene Glycol 3350 17 gm PO PRN PRN 10/09/18 10/09/18 Unknown History [Smoothlax] Sennosides [Senna Laxative] 8.6 mg PO PRN PRN 10/09/18 10/09/18 Unknown History Sevelamer Carbonate [Renvela] 800 mg PO TIDWM 10/09/18 10/09/18 Unknown History Venlafaxine [Effexor 25mg tab] 25 mg PO BID 10/09/18 10/09/18 Unknown History predniSONE [Prednisone] 5 mg PO QDAY 10/09/18 10/09/18 Unknown History Active Medications: Generic Name Dose Route Start Last Admin Trade Name Freq PRN Reason Stop Dose Admin Acetaminophen 650 mg 10/09/18 22:03 10/16/18 08:28 Tylenol PO 650 mg Q4H PRN Administration Pain MILD(1-3)/Fever >100.5/DIAZ Acetaminophen 500 mg 10/09/18 22:06 10/16/18 22:21 Tylenol PO 500 mg Q6HR PRN Administration Pain, Moderate (4-6) Bacitracin 1 applic 10/13/18 16:00 10/17/18 11:14 Antibiotic Oint TP 1 applic BID ENRICO Administration Bicalutamide 50 mg 10/11/18 10:00 10/17/18 10:48 Casodex PO 50 mg QDAY ENRICO Administration Cholecalciferol 2,000 unit 10/10/18 10:00 10/17/18 10:46 Vitamin D3 PO 2,000 unit QDAY ENRICO Administration Epoetin Víctor 20,000 unit 10/10/18 14:00 10/13/18 11:48 Procrit IV 20,000 unit DAKOTA PRN Administration .anemia Famotidine 10 mg 10/09/18 23:00 10/17/18 10:48 Pepcid PO 10 mg BID ENRICO Administration Ferrous Sulfate 325 mg 10/10/18 10:00 10/17/18 10:48 Feosol PO 325 mg QDAY ENRICO Administration Heparin Sodium (Porcine) 5,000 unit 10/13/18 16:00 10/17/18 10:48 Heparin SUB-Q Not Given Q12HR [facility] Hydromorphone HCl 0.25 mg 10/09/18 22:03 10/11/18 09:09 Dilaudid IV 0.25 mg Q3H PRN Administration Pain, Moderate (4-6) Sodium Chloride 100 mls @ 999 mls/hr 10/16/18 11:58 Nacl 0.9% IV DAKOTA PRN Hypotension Ceftriaxone Sodium 1 gm in 50 mls @ 100 mls/hr 10/17/18 11:00 10/17/18 11:13 Rocephin/Ns 1 Gm/50 Ml IV 100 mls/hr Q24HR ENRICO Administration Protocol Insulin Human Isoph/Insulin Regular 6 unit 10/15/18 17:00 10/17/18 11:47 Humulin 70/30 SUB-Q 6 unit BIDDIAB ENRICO Administration Insulin Human Lispro 0 unit 10/12/18 16:30 10/17/18 11:46 Humalog SUB-Q 4 unit ACHS ENRICO Administration Protocol Metoclopramide HCl 10 mg 10/09/18 20:01 10/10/18 18:12 Reglan IV 10 mg Q6H PRN Administration Nausea And Vomiting Mirtazapine 7.5 mg 10/09/18 22:00 10/16/18 22:22 Remeron PO 7.5 mg QHS ENRICO Administration Miscellaneous Medication 1,000 mg 10/10/18 10:00 Abiraterone Acetate (Nf) PO QDAY ENRICO Ondansetron HCl 4 mg 10/09/18 22:03 10/11/18 14:04 Zofran IV 4 mg Q8H PRN Administration Nausea And Vomiting Oxycodone/Acetaminophen 1 tab 10/09/18 22:03 10/15/18 05:50 Percocet 5/325 PO 1 tab Q6H PRN Administration Pain, Moderate (4-6) Prednisone 5 mg 10/10/18 10:00 10/17/18 10:48 Deltasone PO 5 mg QDAY ENRICO Administration Senna 8.6 mg 10/09/18 22:06 10/10/18 22:32 Senokot PO 8.6 mg DAILY PRN Administration Constipation Sevelamer Carbonate 800 mg 10/10/18 08:00 10/17/18 11:53 Renvela PO 800 mg TIDWM ENRICO Administration Sodium Chloride 10 ml 10/10/18 10:00 10/17/18 10:48 Sodium Chloride Flush Syringe 10 Ml IV 10 ml BID ENRICO Administration Sodium Chloride 10 ml 10/09/18 22:03 10/11/18 14:04 Sodium Chloride Flush Syringe 10 Ml IV 10 ml PRN PRN Administration LINE FLUSH Venlafaxine HCl 25 mg 10/09/18 23:00 10/17/18 11:48 Effexor PO 25 mg BID ENRICO Administration
[2018-10-17] MEDS: REMERON PO SCH (22:00)
[2018-10-18] MEDS: HumaLOG SUB-Q SCH ×5 (08:29→22:57)
--- NOTE | 2018-10-18 09:15 | Progress Note ---
Assessment and Plan Microbiology: 10/09/2018 blood culture: No growth 10/09/2018 MRSA nares culture: Positive 10/11/2018 urine culture: No growth A/P 63-year-old male with ESRD on hemodialysis, hypertension, diabetes, anemia, history of metastatic prostate cancer for which he recently underwent a percutaneous nephrostomy due to placement and was started on Casodex, was brought to the emergency room from a correction after he became confused and fell: 1) Concern for sepsis: On and off low grade fevers, leukocytosis trending down. .Leukocytosis could be reactive due to the large right-sided subcapsular hematoma compressing the right kidney. Blood cultures have been negative. Urine cultures also without growth. 2) Complicated UTI with right Nephrostomy tube UA with significant hematuria and pyuria. Urine culture shows no growth . Patient is an ESRD patient, hence difficult to interpret the UA, states he doesn't make much urine. Continue ceft riaxone while inpatient. Anticipate discharge on Ceftin 500 mg PO every 24 hours for total 10 days ending 10-20-18 3) Positive MRSA nasal culture: Continue contact isolation. 4) Metastatic prostate cancer: was recently started on Casodex, apparently gets care at the [place]. 5) ESRD: on HD. Nephrology following. Renally dose abx and meds. Recs: Continue ceftriaxone, I gm IV q 24, D8 Contact isolation for MRSA Anticipate discharge on Ceftin 500 mg PO every 24 hours for total 10 days ending 10-20-18 CBC ordered for tomorrow [facility] M: [phone] O:[phone] Subjective Date of service: 10/18/18 Principal diagnosis: end-stage renal disease,Sepsis Interval history: Patient seen and examined. Siting up in chair, eating. No acute distress, no fevers. Objective - Exam Narrative Exam: Constitutional: Alert, cooperative. No acute distress Head, Ears, Nose: Normocephalic, atraumatic. External ears, nose normal Eyes: Conjunctivae/corneas clear. No icterus. No ptosis. Neck: Supple, no meningeal signs Cardiovascular: S1, S2 normal. Respiratory: Good air entry, clear to auscultation bilaterally GI: Soft, non-tender; bowel sounds normal. No peritoneal signs. Right nephrostomy tube +. right upper chest HD cath + Musculoskeletal: No pedal edema, no cyanosis. Skin: No rash or abscess Hem/Lymphatic: No palpable cervical or supraclavicular nodes. No lymphangitis Psych: Mood ok. Affect normal Neurological: Awake, alert, oriented. No gross abnormality - Constitutional Vitals: Vital Signs Temp Pulse Resp BP Pulse Ox 98.7 F 88 20 121/59 100 10/18/18 07:42 10/18/18 08:19 10/18/18 07:42 10/18/18 07:42 10/18/18 08:19 Temperature -Last 24 Hours Temperature 98.7 F Temperature 99.0 F Temperature 98.0 F Temperature 100.2 F - Labs CBC & Chem 7: 10/17/18 04:43 10/17/18 04:43 Labs: Abnormal lab results 10/17/18 10/17/18 10/17/18 Range/Units 11:44 16:43 23:17 POC Glucose 240 H 151 H 195 H (70-105) 10/18/18 Range/Units 07:44 POC Glucose 163 H (70-105)
[2018-10-18] MEDS ORDERED: NACL 0.9% 100 ML IV PRN (09:26)
--- NOTE | 2018-10-18 09:26 | Progress Note ---
Assessment and Plan Assessment: * End stage renal disease on IHD * Sepsis * Altered mental status * Prostate CA s/p percutaneous nephrostomy tubes * Hypertension * Type II DM * Anemia secondary to ESRD * Secondary hyperparathyroidism * MRSA colonization Plan: * Continue MWF HD schedule * UF as tolerated * Transfuse pRBC prn * Empiric abx per primary team - blood cx NGTD * Epogen TIW prn * Urology recommendations noted * Renal diet Subjective Date of service: 10/18/18 Principal diagnosis: end-stage renal disease,Sepsis Interval history: Patient's appetite remains poor Objective - Vital Signs Vital signs: Vital Signs - 12hr 10/18/18 10/18/18 10/18/18 01:54 02:10 07:42 Temperature 99.0 F 98.7 F Pulse Rate 97 H Respiratory 20 20 Rate Blood Pressure 117/64 121/59 O2 Sat by Pulse 99 Oximetry 10/18/18 08:19 Temperature Pulse Rate 88 Respiratory Rate Blood Pressure O2 Sat by Pulse 100 Oximetry - General Appearance General appearance: frail EENT: ATNC Respiratory: Present: Clear to Ascultation Cardiology: regular, S1S2 Gastrointestinal: normal, no tenderness, no distended Integumentary: warm and dry Musculoskeletal: other (no edema) Psychiatric: cooperative - Lab 10/19/18 05:00 10/19/18 05:00 Most recent lab results Calcium 9.9 mg/dL (8.4-10.2) 10/17/18 04:43 Medications & Allergies - Medications Allergies/Adverse Reactions: Allergies No Known Allergies Allergy (Unverified 10/09/18 11:11) Home Medications: Home Medications Medication Instructions Recorded Confirmed Last Taken Type Abiraterone Acetate (Nf) [Zytiga 1,000 mg PO QDAY 10/09/18 10/09/18 Unknown His tory (Nf)] Acetaminophen [Tylenol] 500 mg PO Q6HR PRN 10/09/18 10/09/18 Unknown History Cholecalciferol Vit D3 [Vitamin D3 2,000 unit PO QDAY 10/09/18 10/09/18 Unknown History 1,000 UNIT TAB] Ferrous Sulfate [Iron] 325 mg PO QDAY 10/09/18 10/09/18 Unknown History HYDROcodone/APAP 5-325 [[place] 1 each PO Q6HR PRN 10/09/18 10/09/18 Unknown History 5/325] Mirtazapine 7.5 mg PO HS 10/09/18 10/09/18 Unknown History Multivit-Min/FA/Lycopen/Lutein 1 each PO DAILY 10/09/18 10/09/18 Unknown History [Men 50 Plus Multivitamin Tab] Ondansetron [Zofran ODT TAB] 8 mg PO Q8HR PRN 10/09/18 10/09/18 Unknown History Polyethylene Glycol 3350 17 gm PO PRN PRN 10/09/18 10/09/18 Unknown History [Smoothlax] Sennosides [Senna Laxative] 8.6 mg PO PRN PRN 10/09/18 10/09/18 Unknown History Sevelamer Carbonate [Renvela] 800 mg PO TIDWM 10/09/18 10/09/18 Unknown History Venlafaxine [Effexor 25mg tab] 25 mg PO BID 10/09/18 10/09/18 Unknown History predniSONE [Prednisone] 5 mg PO QDAY 10/09/18 10/09/18 Unknown History Active Medications: Generic Name Dose Route Start Last Admin Trade Name Freq PRN Reason Stop Dose Admin Acetaminophen 650 mg 10/09/18 22:03 10/16/18 08:28 Tylenol PO 650 mg Q4H PRN Administration Pain MILD(1-3)/Fever >100.5/DIAZ Acetaminophen 500 mg 10/09/18 22:06 10/16/18 22:21 Tylenol PO 500 mg Q6HR PRN Administration Pain, Moderate (4-6) Bacitracin 1 applic 10/13/18 16:00 10/17/18 23:34 Antibiotic Oint TP 1 applic BID ENRICO Administration Bicalutamide 50 mg 10/11/18 10:00 10/17/18 10:48 Casodex PO 50 mg QDAY ENRICO Administration Cholecalciferol 2,000 unit 10/10/18 10:00 10/17/18 10:46 Vitamin D3 PO 2,000 unit QDAY ENRICO Administration Epoetin Víctor 20,000 unit 10/10/18 14:00 10/13/18 11:48 Procrit IV 20,000 unit DAKOTA PRN Administration .anemia Famotidine 10 mg 10/09/18 23:00 10/17/18 22:00 Pepcid PO 10 mg BID ENRICO Administration Ferrous Sulfate 325 mg 10/10/18 10:00 10/17/18 10:48 Feosol PO 325 mg QDAY ENRICO Administration Heparin Sodium (Porcine) 5,000 unit 10/13/18 16:00 10/17/18 22:00 Heparin SUB-Q 5,000 unit Q12HR ENRICO Administration Hydromorphone HCl 0.25 mg 10/09/18 22:03 10/11/18 09:09 Dilaudid IV 0.25 mg Q3H PRN Administration Pain, Moderate (4-6) Sodium Chloride 100 mls @ 999 mls/hr 10/16/18 11:58 Nacl 0.9% IV DAKOTA PRN Hypotension Ceftriaxone Sodium 1 gm in 50 mls @ 100 mls/hr 10/17/18 11:00 10/17/18 11:13 Rocephin/Ns 1 Gm/50 Ml IV 100 mls/hr Q24HR ENRICO Administration Protocol Insulin Human Isoph/Insulin Regular 6 unit 10/15/18 17:00 10/17/18 11:47 Humulin 70/30 SUB-Q 6 unit BIDDIAB ENRICO Administration Insulin Human Lispro 0 unit 10/12/18 16:30 10/18/18 08:29 Humalog SUB-Q 3 unit ACHS ENRICO Administration Protocol Metoclopramide HCl 10 mg 10/09/18 20:01 10/10/18 18:12 Reglan IV 10 mg Q6H PRN Administration Nausea And Vomiting Mirtazapine 7.5 mg 10/09/18 22:00 10/17/18 22:00 Remeron PO 7.5 mg QHS ENRICO Administration Miscellaneous Medication 1,000 mg 10/10/18 10:00 Abiraterone Acetate (Nf) PO QDAY [facility] Ondansetron HCl 4 mg 10/09/18 22:03 10/11/18 14:04 Zofran IV 4 mg Q8H PRN Administration Nausea And Vomiting Oxycodone/Acetaminophen 1 tab 10/09/18 22:03 10/15/18 05:50 Percocet 5/325 PO 1 tab Q6H PRN Administration Pain, Moderate (4-6) Prednisone 5 mg 10/10/18 10:00 10/17/18 10:48 Deltasone PO 5 mg QDAY [facility] Administration Senna 8.6 mg 10/09/18 22:06 10/10/18 22:32 Senokot PO 8.6 mg DAILY PRN Administration Constipation Sevelamer Carbonate 800 mg 10/10/18 08:00 10/17/18 11:53 Renvela PO 800 mg TIDWM E[place] Administration Sodium Chloride 10 ml 10/10/18 10:00 10/17/18 22:01 Sodium Chloride Flush Syringe 10 Ml IV 10 ml BID ENRICO Administration Sodium Chloride 10 ml 10/09/18 22:03 10/11/18 14:04 Sodium Chloride Flush Syringe 10 Ml IV 10 ml PRN PRN Administration LINE FLUSH Venlafaxine HCl 25 mg 10/09/18 23:00 10/17/18 22:00 Effexor PO 25 mg BID ENRICO Administration
[2018-10-18] MEDS: VITAMIN D3 PO SCH (11:19)
[2018-10-18] MEDS: PEPCID PO SCH ×2 (11:19→22:57)
[2018-10-18] MEDS: RENVELA PO SCH ×3 (11:20→17:02)
[2018-10-18] MEDS: ROCEPHIN/NS 1 GM/50 ML 1 GM/50 ML BAG IV SCH (11:20)
[2018-10-18] MEDS: FEOSOL PO SCH (11:20)
[2018-10-18] MEDS: CASODEX PO SCH (11:20)
[2018-10-18] MEDS: HEPARIN SUB-Q SCH ×2 (11:21→22:58)
[2018-10-18] MEDS: EFFEXOR PO SCH ×2 (11:22→22:57)
[2018-10-18] MEDS: ANTIBIOTIC OINT TP SCH ×2 (11:23→22:59)
[2018-10-18] MEDS: DELTASONE PO SCH (11:23)
[2018-10-18] MEDS: SODIUM CHLORIDE FLUSH SYRINGE 10 ML IV SCH ×2 (11:24→23:05)
--- NOTE | 2018-10-18 19:15 | Progress Note ---
Assessment and Plan Assessment and plan: --History of prostate Cancer /Nephrostomy tube Urology following, nephrostomy care Patient has follow-up neurology appointment tomorrow Check with Urology the plan of care --MRSA in Nares Contact isolation, bacitracin ointment, ID evaluation if needed --Hyperglycemia Well-controlled hemoglobin A1c 6, patient is on long-term low-dose steroid Accu-Chek sliding scale coverage, low-dose long-acting insulin 7030, closely monitor -- Anemia s/p 2 unit of PRBC transfusion, Hb improved from 6.3 to 6.9-8.5 Continue Epogen during dialysis -- Sepsis Sepsis secondary to urinary tract infection SIRS criteria 2 out of 4 Leukocytosis and tachycardia, continue current antibiotics More alert and oriented --Acute Encephalopathy Secondary to Uremia and Sepsis improving More Communicative --Chronic Pain Pain control with Analgesics -- End stage renal disease End-stage renal disease Access right IJ catheter Receive dialysis on 10/10/2018 on dialysis Repeat dialysis in the a.m. -- Hypertension Moderate control, continue current antihypertensives and when necessary medications --DVT Prophylaxis On Heparin and GI prophylaxis Physical therapy occupational therapy Plan of care reviewed with the patient and his nurse. History Interval history: Patient seen and examined medical records reviewed Patient feels better and wants to go home Alert awake oriented 3 Not in acute distress no new complaints Hospitalist Physical - Constitutional Vitals: Temp Pulse Resp BP Pulse Ox 98.2 F 96 H 20 104/59 96 10/18/18 13:49 10/18/18 13:49 10/18/18 13:49 10/18/18 13:49 10/18/18 13:49 General appearance: Present: no acute distress, well-nourished - EENT Eyes: Present: PERRL, EOM intact - Neck Neck: Present: supple, normal ROM - Respiratory Respiratory effort: normal Respiratory: bilateral: diminished, negative: rales, rhonchi, wheezing - Cardiovascular Rhythm: regular Heart Sounds: Present: S1 & S2 - Extremities Extremities: no ischemia, No edema - Abdominal General gastrointestinal: soft, non-tender, non-distended, normal bowel sounds - Integumentary Integumentary: Present: clear, warm - Psychiatric Psychiatric: appropriate mood/affect, cooperative - Neurologic Neurologic: CNII-XII intact, moves all extremities Results - Labs CBC & Chem 7: 10/19/18 05:00 10/19/18 05:00 Labs: Laboratory Last Values WBC 11.1 K/mm3 (4.5-11.0) H 10/17/18 04:43 RBC 2.92 M/mm3 (3.65-5.03) L 10/17/18 04:43 Hgb 8.5 gm/dl (11.8-15.2) L 10/17/18 04:43 Hct 25.2 % (35.5-45.6) L 10/17/18 04:43 MCV 86 fl (84-94) 10/17/18 04:43 MCH 29 pg (28-32) 10/17/18 04:43 MCHC 34 % (32-34) 10/17/18 04:43 RDW 17.8 % (13.2-15.2) H 10/17/18 04:43 Plt Count 294 K/mm3 (140-440) 10/17/18 04:43 Lymph % (Auto) [employer] 10/09/18 10:41 [place] % (Auto) [employer] 10/09/18 10:41 Eos % (Auto) [employer] 10/09/18 10:41 Baso % (Auto) [employer] 10/09/18 10:41 Lymph # [employer] 10/09/18 10:41 [place] # [employer]er 10/09/18 10:41 Eos # [employer]ideogame [employer]er 10/09/18 10:41 Baso # [employer]ideog[employer]er 10/09/18 10:41 Add Manual Diff Complete 10/17/18 04:43 Total Counted 100 10/17/18 04:43 Seg Neutrophils % [employer]ideogame [employer]er 10/09/18 10:41 Seg Neuts % (Manual) 77.0 % (40.0-70.0) H 10/17/18 04:43 Band Neutrophils % 7.0 % 10/17/18 04:43 Lymphocytes % (Manual) 6.0 % (13.4-35.0) L 10/17/18 04:43 Reactive Lymphs % (Man) 0 % 10/17/18 04:43 Monocytes % (Manual) 7.0 % (0.0-7.3) 10/17/18 04:43 Eosinophils % (Manual) 0 % (0.0-4.3) 10/17/18 04:43 Basophils % (Manual) 0 % (0.0-1.8) 10/17/18 04:43 Metamyelocytes % 3.0 % 10/17/18 04:43 Myelocytes % 0 % 10/17/18 04:43 Promyelocytes % 0 % 10/17/18 04:43 Blast Cells % 0 % 10/17/18 04:43 Nucleated RBC % 2.0 % (0.0-0.9) H 10/17/18 04:43 Seg Neutrophils # Videogame [employer]er 10/09/18 10:41 Seg Neutrophils # Man 8.5 K/mm3 (1.8-7.7) H 10/17/18 04:43 Band Neutrophils # 0.8 K/mm3 10/17/18 04:43 Lymphocytes # (Manual) 0.7 K/mm3 (1.2-5.4) L 10/17/18 04:43 Abs React Lymphs (Man) 0.0 K/mm3 10/17/18 04:43 Monocytes # (Manual) 0.8 K/mm3 (0.0-0.8) 10/17/18 04:43 Eosinophils # (Manual) 0.0 K/mm3 (0.0-0.4) 10/17/18 04:43 Basophils # (Manual) 0.0 K/mm3 (0.0-0.1) 10/17/18 04:43 Metamyelocytes # 0.3 K/mm3 10/17/18 04:43 Myelocytes # 0.0 K/mm3 10/17/18 04:43 Promyelocytes # 0.0 K/mm3 10/17/18 04:43 Blast Cells # 0.0 K/mm3 10/17/18 04:43 WBC Morphology Not Reportable 10/17/18 04:43 Hypersegmented Neuts Not Reportable 10/17/18 04:43 Hyposegmented Neuts Not Reportable 10/17/18 04:43 Hypogranular Neuts Not Reportable 10/17/18 04:43 Smudge Cells Not Reportable 10/17/18 04:43 Toxic Granulation Not Reportable 10/17/18 04:43 Toxic Vacuolation Not Reportable 10/17/18 04:43 Dohle Bodies Not Reportable 10/17/18 04:43 Pelger-Huet Anomaly Not Reportable 10/17/18 04:43 Bridget Rods Not Reportable 10/17/18 04:43 Platelet Estimate Cons 10/17/18 04:43 Clumped Platelets Not Reportable 10/17/18 04:43 Plt Clumps, EDTA Not Reportable 10/17/18 04:43 Large Platelets Not Reportable 10/17/18 04:43 Giant Platelets Not Reportable 10/17/18 04:43 Platelet Satelliting Not Reportable 10/17/18 04:43 Plt Morphology Comment Not Reportable 10/17/18 04:43 RBC Morphology Not Reportable 10/17/18 04:43 Dimorphic RBCs Not Reportable 10/17/18 04:43 Polychromasia Not Reportable 10/17/18 04:43 Hypochromasia Not Reportable 10/17/18 04:43 Poikilocytosis Not Reportable 10/17/18 04:43 Anisocytosis 1+ 10/17/18 04:43 Microcytosis Not Reportable 10/17/18 04:43 Macrocytosis Not Reportable 10/17/18 04:43 Spherocytes Not Reportable 10/17/18 04:43 Pappenheimer Bodies Not Reportable 10/17/18 04:43 Sickle Cells Not Reportable 10/17/18 04:43 Target Cells Rare 10/17/18 04:43 Tear Drop Cells Not Reportable 10/17/18 04:43 Ovalocytes Not Reportable 10/17/18 04:43 Helmet Cells Not Reportable 10/17/18 04:43 [place] Bodies Not Reportable 10/17/18 04:43 [place] Rings Not Reportable 10/17/18 04:43 [place] Cells Not Reportable 10/17/18 04:43 Bite Cells Not Reportable 10/17/18 04:43 Crenated Cell Not Reportable 10/17/18 04:43 Elliptocytes Not Reportable 10/17/18 04:43 Acanthocytes (Spur) Not Reportable 10/17/18 04:43 Rouleaux Not Reportable 10/17/18 04:43 Hemoglobin C Crystals Not Reportable 10/17/18 04:43 Schistocytes Not Reportable 10/17/18 04:43 Malaria parasites Not Reportable 10/17/18 04:43 Oswald Bodies Not Reportable 10/17/18 04:43 Hem Pathologist Commnt No 10/17/18 04:43 PT 16.2 Sec. (12.2-14.9) H 10/09/18 10:41 INR 1.22 (0.87-1.13) H 10/09/18 10:41 APTT 30.9 Sec. (24.2-36.6) 10/09/18 10:41 Sodium 136 mmol/L (137-145) L 10/17/18 04:43 Potassium 3.4 mmol/L (3.6-5.0) L 10/17/18 04:43 Chloride 96.4 mmol/L (98-107) L 10/17/18 04:43 Carbon Dioxide 30 mmol/L (22-30) 10/17/18 04:43 Anion Gap 13 mmol/L 10/17/18 04:43 BUN 17 mg/dL (9-20) 10/17/18 04:43 Creatinine 3.5 mg/dL (0.8-1.5) H 10/17/18 04:43 Estimated GFR 21 ml/min 10/17/18 04:43 BUN/Creatinine Ratio 5 % 10/17/18 04:43 Glucose 82 mg/dL (75-100) 10/17/18 04:43 POC Glucose 164 (70-105) H 10/18/18 16:25 Hemoglobin A1c 6.0 % (4-6) 10/09/18 22:51 Lactic Acid 1.00 mmol/L (0.7-2.0) 10/10/18 06:02 Calcium 9.9 mg/dL (8.4-10.2) 10/17/18 04:43 Total Bilirubin 0.60 mg/dL (0.1-1.2) 10/10/18 06:02 Direct Bilirubin 0.5 mg/dL (0-0.2) H 10/09/18 10:41 Indirect Bilirubin 0.4 mg/dL 10/09/18 10:41 AST 18 units/L (5-40) 10/10/18 06:02 ALT 13 units/L (7-56) 10/10/18 06:02 Alkaline Phosphatase 181 units/L (35-129) H 10/10/18 06:02 Ammonia 33.0 umol/L (25-60) 10/09/18 10:41 Troponin T 0.233 ng/mL (0.00-0.029) H* 10/09/18 10:41 Total Protein 6.4 g/dL (6.3-8.2) 10/10/18 06:02 Albumin 2.7 g/dL (3.9-5) L 10/10/18 06:02 Albumin/Globulin Ratio 0.7 % 10/10/18 06:02 Triglycerides 274 mg/dL (2-149) H 10/09/18 10:41 Cholesterol 176 mg/dL (50-199) 10/09/18 10:41 LDL Cholesterol Direct 61 mg/dL (50-130) 10/09/18 10:41 HDL Cholesterol 28 mg/dL (40-59) L 10/09/18 10:41 Cholesterol/HDL Ratio 6.28 % 10/09/18 10:41 Prostate Specific Ag 2660.00 ng/mL (0.00-4.00) H 10/10/18 11:01 Urine Color Alla (Yellow) 10/09/18 11:39 Urine Turbidity Turbid (Clear) 10/09/18 11:39 Urine pH [employer]ideogame [employer]er 10/09/18 11:39 Ur Specific [place] [employer]er 10/09/18 11:39 Urine Protein Color interference mg/dL (Negative) 10/09/18 11:39 Urine Glucose (UA) Color interference mg/dL (Negative) 10/09/18 11:39 Urine Ketones Color interference mg/dL (Negative) 10/09/18 11:39 Urine Blood Color interference (Negative) 10/09/18 11:39 Urine Nitrite Color interference (Negative) 10/09/18 11:39 Urine Bilirubin Color interference (Negative) 10/09/18 11:39 Urine Ictotest Not Reportable 10/09/18 11:39 Urine Urobilinogen Videogame Designer 10/09/18 11:39 Ur Leukocyte Esterase Color interference (Negative) 10/09/18 11:39 Urine WBC (Auto) > 182.0 /HPF (0.0-6.0) H 10/09/18 11:39 Urine RBC (Auto) > 182.0 /HPF (0.0-6.0) 10/09/18 11:39 Urine Bacteria (Auto) 4+ /HPF (Negative) 10/09/18 11:39 Hepatitis A IgM Ab Non-reactive (NonReactive) 10/10/18 18:00 Hep Bs Antigen Non-reactive (Negative) 10/10/18 18:00 Hep B Core IgM Ab Non-reactive (NonReactive) 10/10/18 18:00 Hepatitis C Antibody Non-reactive (NonReactive) 10/10/18 18:00 Blood Type O POSITIVE 10/15/18 16:11 Antibody Screen Negative 10/15/18 16:11 Crossmatch See Detail 10/15/18 16:11 Active Medications - Current Medications Current Medications: Generic Name Dose Route Start Last Admin Trade Name Freq PRN Reason Stop Dose Admin Acetaminophen 650 mg 10/09/18 22:03 10/16/18 08:28 Tylenol PO 650 mg Q4H PRN Administration Pain MILD(1-3)/Fever >100.5/DIAZ Acetaminophen 500 mg 10/09/18 22:06 10/16/18 22:21 Tylenol PO 500 mg Q6HR PRN Administration Pain, Moderate (4-6) Bacitracin 1 applic 10/13/18 16:00 10/18/18 11:23 Antibiotic Oint TP 1 applic BID ENRICO Administration Bicalutamide 50 mg 10/11/18 10:00 10/18/18 11:20 Casodex PO 50 mg QDAY ENRICO Administration Cholecalciferol 2,000 unit 10/10/18 10:00 10/18/18 11:19 Vitamin D3 PO 2,000 unit QDAY E[place] Administration Epoetin Víctor 20,000 unit 10/10/18 14:00 10/13/18 11:48 Procrit IV 20,000 unit DAKOTA PRN Administration .anemia Famotidine 10 mg 10/09/18 23:00 10/18/18 11:19 Pepcid PO 10 mg BID ENRICO Administration Ferrous Sulfate 325 mg 10/10/18 10:00 10/18/18 11:20 Feosol PO 325 mg QDAY E[place] Administration Heparin Sodium (Porcine) 5,000 unit 10/13/18 16:00 10/18/18 11:21 Heparin SUB-Q 5,000 unit Q12HR ENRICO Administration Hydromorphone HCl 0.25 mg 10/09/18 22:03 10/11/18 09:09 Dilaudid IV 0.25 mg Q3H PRN Administration Pain, Moderate (4-6) Ceftriaxone Sodium 1 gm in 50 mls @ 100 mls/hr 10/17/18 11:00 10/18/18 11:20 Rocephin/Ns 1 Gm/50 Ml IV 100 mls/hr Q24HR ENRICO Administration Protocol Sodium Chloride 100 mls @ 999 mls/hr 10/18/18 09:26 Nacl 0.9% IV [place] PRN Hypotension Insulin Human Isoph/Insulin Regular 6 unit 10/15/18 17:00 10/18/18 17:01 Humulin 70/30 SUB-Q 6 unit BIDDIAB E[place] Administration Insulin Human Lispro 0 unit 10/12/18 16:30 10/18/18 17:00 Humalog SUB-Q 3 unit ACHS ENRICO Administration Protocol Metoclopramide HCl 10 mg 10/09/18 20:01 10/10/18 18:12 Reglan IV 10 mg Q6H PRN Administration Nausea And Vomiting Mirtazapine 7.5 mg 10/09/18 22:00 10/17/18 22:00 Remeron PO 7.5 mg QHS ENRICO Administration Miscellaneous Medication 1,000 mg 10/10/18 10:00 Abiraterone Acetate (Nf) PO QDAY [facility] Ondansetron HCl 4 mg 10/09/18 22:03 10/11/18 14:04 Zofran IV 4 mg Q8H PRN Administration Nausea And Vomiting Oxycodone/Acetaminophen 1 tab 10/09/18 22:03 10/15/18 05:50 Percocet 5/325 PO 1 tab Q6H PRN Administration Pain, Moderate (4-6) Prednisone 5 mg 10/10/18 10:00 10/18/18 11:23 Deltasone PO 5 mg QDAY [place] Administration Senna 8.6 mg 10/09/18 22:06 10/10/18 22:32 Senokot PO 8.6 mg DAILY PRN Administration Constipation Sevelamer Carbonate 800 mg 10/10/18 08:00 10/18/18 17:02 Renvela PO 800 mg TIDWM E[place] Administration Sodium Chloride 10 ml 10/10/18 10:00 10/18/18 11:24 Sodium Chloride Flush Syringe 10 Ml IV 10 ml BID ENRICO Administration Sodium Chloride 10 ml 10/09/18 22:03 10/11/18 14:04 Sodium Chloride Flush Syringe 10 Ml IV 10 ml PRN PRN Administration LINE FLUSH Venlafaxine HCl 25 mg 10/09/18 23:00 10/18/18 11:22 Effexor PO 25 mg BID ENRICO Administration Nutrition/Malnutrition Assess - Dietary Evaluation Nutrition/Malnutrition Findings: Nutrition Notes Start: 10/16/18 15:45 Freq: Status: Active Protocol: Document 10/16/18 15:45 RM (Rec: 10/16/18 15:50 RM [id number]) Nutrition Notes Need for Assessment generated from: LOS Initial or Follow up Brief Note Other Pertinent Diagnosis ESRD on HD,Chronic constipation,Depression,Hx prostate cancer Current Diet Mech soft w/Nepro Vanilla TID Labs/Tests A1c 6 Pertinent Medications Reviewed Height 5 ft 6 in Weight 70.7 kg [place] Body Weight (kg) 64.54 BMI 25.1 Subjective/Other Information Screened for LOS. Pt stated that his appetite is good but that he eats bites of his meals d/t disliking the facility's food. Stated that he eats outside food brought in by family ie: soups, chicken salad. Noted preferences. Stated he drinks the Nepro and likes it. Offered DM diet education for prevention of DM Dx. Pt stated that he has been a diabetic for years and that he brought down his A1c. Burn Absent Trauma Absent
[2018-10-18] MEDS: PROCRIT IV PRN (20:30)
[2018-10-18] MEDS: REMERON PO SCH (22:57)
[2018-10-18] MEDS: PERCOCET 5/325 PO PRN (23:10)
[2018-10-19 01:10] LABS: Hematocrit 24.4 % (35.5-45.6); Mean Corpuscular HGB Conc 33 % (32-34); Mean Corpuscular Volume 88 fl (84-94); Platelet Count 277 K/mm3 (140-440); Red Blood Count 2.77 M/mm3 (3.65-5.03); Red Cell Distribution Width 17.7 % (13.2-15.2)
[2018-10-19 06:26] LABS: Hematocrit 24.3 % (35.5-45.6); Hemoglobin 8.1 gm/dl (11.8-15.2); Mean Corpuscular HGB Conc 33 % (32-34); Mean Corpuscular Volume 87 fl (84-94); Platelet Count 309 K/mm3 (140-440); Red Blood Count 2.81 M/mm3 (3.65-5.03); Red Cell Distribution Width 17.5 % (13.2-15.2)
[2018-10-19 06:47] LABS: Calcium 9.9 mg/dL (8.4-10.2)
[2018-10-19 07:32] LABS: Anisocytosis 1+; Band Neutrophils # (Manual) 0.9 K/mm3; Basophils % (Manual) 0 % (0.0-1.8); Eosinophils % (Manual) 0 % (0.0-4.3); Total Cells Counted 100
[2018-10-19 07:35] LABS: Anisocytosis 1+; Band Neutrophils # (Manual) 1.4 K/mm3; Basophils % (Manual) 0 % (0.0-1.8); Eosinophils % (Manual) 0 % (0.0-4.3); Myelocytes # (Manual) 0.5 K/mm3; Total Cells Counted 100
--- NOTE | 2018-10-19 09:09 | Progress Note ---
Assessment and Plan Microbiology: 10/09/2018 blood culture: No growth 10/09/2018 MRSA nares culture: Positive 10/11/2018 urine culture: No growth A/P 63-year-old male with ESRD on hemodialysis, hypertension, diabetes, anemia, history of metastatic prostate cancer for which he recently underwent a percutaneous nephrostomy due to placement and was started on Casodex, was brought to the emergency room from a [facility] after he became confused and fell: 1) Concern for sepsis: Fevers resolved, Leukocytosis continuing. could be reactive due to the large right-sided subcapsular hematoma compressing the right kidney. Blood cultures have been negative. Urine cultures also without growth. 2) Complicated UTI with right Nephrostomy tube UA with significant hematuria and pyuria. Urine culture shows no growth . Patient is an ESRD patient, hence difficult to interpret the UA, states he doesn't make much urine. Continue ceftriaxone while inpatient. Anticipate discharge on Ceftin 500 mg PO every 24 hours for total 10 days ending 10-20-18 3) Positive MRSA nasal culture: Continue contact isolation. 4) Metastatic prostate cancer: was recently started on Casodex, apparently gets care [facility]. 5) ESRD: on HD. Nephrology following. Renally dose abx and meds. Recs: Continue ceftriaxone, I gm IV q 24, D9 of D10 Contact isolation for MRSA [facility] M: [phone] O:[phone] Subjective Date of service: 10/19/18 Principal diagnosis: end-stage renal disease,Sepsis Interval history: Patient seen and examined. Asleep, easily arousable. No acute distress, no fevers. Objective - Exam Narrative Exam: Constitutional: Alert, cooperative. No acute distress Head, Ears, Nose: Normocephalic, atraumatic. External ears, nose normal Eyes: Conjunctivae/corneas clear. No icterus. No ptosis. Neck: Supple, no meningeal signs Cardiovascular: S1, S2 normal. Respiratory: Good air entry, clear to auscultation bilaterally GI: Soft, non-tender; bowel sounds normal. No peritoneal signs. Right nephrostomy tube +. right upper chest HD cath + Musculoskeletal: No pedal edema, no cyanosis. Skin: No rash or abscess Hem/Lymphatic: No palpable cervical or supraclavicular nodes. No lymphangitis Psych: Mood ok. Affect normal Neurological: Awake, alert, oriented. No gross abnormality - Constitutional Vitals: Vital Signs Temp Pulse Resp BP Pulse Ox 97.8 F 88 18 86/53 96 10/19/18 08:21 10/19/18 08:25 10/19/18 08:25 10/19/18 08:21 10/19/18 08:25 Temperature -Last 24 Hours Temperature 97.8 F Temperature 97.8 F Temperature 98.8 F Temperature 98.2 F Temperature 98.2 F - Labs CBC & Chem 7: 10/19/18 05:00 10/19/18 05:00 Labs: Abnormal lab results 10/18/18 10/18/18 10/18/18 Range/Units 11:30 16:25 22:31 WBC (4.5-11.0) K/mm3 RBC (3.65-5.03) M/mm3 Hgb (11.8-15.2) gm/dl Hct (35.5-45.6) % RDW (13.2-15.2) % Seg Neuts % (Manual) (40.0-70.0) % Lymphocytes % (Manual) (13.4-35.0) % Monocytes % (Manual) (0.0-7.3) % Nucleated RBC % (0.0-0.9) % Seg Neutrophils # Man (1.8-7.7) K/mm3 Lymphocytes # (Manual) (1.2-5.4) K/mm3 Monocytes # (Manual) (0.0-0.8) K/mm3 Chloride (98-107) mmol/L Carbon Dioxide (22-30) mmol/L Creatinine (0.8-1.5) mg/dL POC Glucose 131 H 164 H 137 H (70-105) 10/19/18 10/19/18 10/19/18 Range/Units 00:41 05:00 05:00 WBC 12.4 H 12.6 H (4.5-11.0) K/mm3 RBC 2.77 L 2.81 L (3.65-5.03) M/mm3 Hgb 8.0 L 8.1 L (11.8-15.2) gm/dl Hct 24.4 L 24.3 L (35.5-45.6) % RDW 17.7 H 17.5 H (13.2-15.2) % Seg Neuts % (Manual) 76.0 H (40.0-70.0) % Lymphocytes % (Manual) 8.0 L 12.0 L (13.4-35.0) % Monocytes % (Manual) 9.0 H 8.0 H (0.0-7.3) % Nucleated RBC % 2.0 H 3.0 H (0.0-0.9) % Seg Neutrophils # Man 9.4 H 7.8 H (1.8-7.7) K/mm3 Lymphocytes # (Manual) 1.0 L (1.2-5.4) K/mm3 Monocytes # (Manual) 1.1 H 1.0 H (0.0-0.8) K/mm3 Chloride 97.3 L (98-107) mmol/L Carbon Dioxide 31 H (22-30) mmol/L Creatinine 3.5 H (0.8-1.5) mg/dL POC Glucose (70-105) 10/19/18 Range/Units 08:11 WBC (4.5-11.0) K/mm3 RBC (3.65-5.03) M/mm3 Hgb (11.8-15.2) gm/dl Hct (35.5-45.6) % RDW (13.2-15.2) % Seg Neuts % (Manual) (40.0-70.0) % Lymphocytes % (Manual) (13.4-35.0) % Monocytes % (Manual) (0.0-7.3) % Nucleated RBC % (0.0-0.9) % Seg Neutrophils # Man (1.8-7.7) K/mm3 Lymphocytes # (Manual) (1.2-5.4) K/mm3 Monocytes # (Manual) (0.0-0.8) K/mm3 Chloride (98-107) mmol/L Carbon Dioxide (22-30) mmol/L Creatinine (0.8-1.5) mg/dL POC Glucose 202 H (70-105)
[2018-10-19] MEDS: ROCEPHIN/NS 1 GM/50 ML 1 GM/50 ML BAG IV SCH (10:27)
--- NOTE | 2018-10-19 10:40 | Progress Note ---
Assessment and Plan Assessment: * End stage renal disease on IHD * Sepsis * Altered mental status * Prostate CA s/p percutaneous nephrostomy tubes * Hypertension * Type II DM * Anemia secondary to ESRD * Secondary hyperparathyroidism * MRSA colonization Plan: * Continue MWF HD schedule * UF as tolerated * Transfuse pRBC prn * Empiric abx per primary team - blood cx NGTD * Epogen TIW prn * Urology recommendations noted * Renal diet * Stable for d/c from a renal standpoint Subjective Date of service: 10/19/18 Principal diagnosis: end-stage renal disease,Sepsis Interval history: Patient has no complaint Objective - Vital Signs Vital signs: Vital Signs - 12hr 10/18/18 10/19/18 10/19/18 23:10 00:10 02:28 Temperature 97.8 F Pulse Rate 87 Pulse Rate [ From Monitor] Respiratory 20 16 20 Rate Respiratory 20 Rate [ Generalized] Blood Pressure 107/62 O2 Sat by Pulse 97 Oximetry 10/19/18 10/19/18 08:21 08:25 Temperature 97.8 F Pulse Rate Pulse Rate [ 88 From Monitor] Respiratory 20 18 Rate Respiratory Rate [ Generalized] Blood Pressure 86/53 O2 Sat by Pulse 96 Oximetry - General Appearance General appearance: well-developed, well-nourished EENT: ATNC Respiratory: Present: Clear to Ascultation Cardiology: regular, S1S2 Gastrointestinal: normal, no tenderness, no distended, other (percutaneous nephrostomy tube) Integumentary: warm and dry Neurologic: no focal deficit Musculoskeletal: other (no edema) Psychiatric: cooperative - Lab 10/19/18 05:00 10/19/18 05:00 Most recent lab results Calcium 9.9 mg/dL (8.4-10.2) 10/19/18 05:00 Medications & Allergies - Medications Allergies/Adverse Reactions: Allergies No Known Allergies Allergy (Unverified 10/09/18 11:11) Home Medications: Home Medications Medication Instructions Recorded Confirmed Last Taken Type Abiraterone Acetate (Nf) [Zytiga 1,000 mg PO QDAY 10/09/18 10/09/18 Unknown History (Nf)] Acetaminophen [Tylenol] 500 mg PO Q6HR PRN 10/09/18 10/09/18 Unknown History Cholecalciferol Vit D3 [Vitamin D3 2,000 unit PO QDAY 10/09/18 10/09/18 Unknown History 1,000 UNIT TAB] Ferrous Sulfate [Iron] 325 mg PO QDAY 10/09/18 10/09/18 Unknown History HYDROcodone/APAP 5-325 [[place] 1 each PO Q6HR PRN 10/09/18 10/09/18 Unknown History 5/325] Mirtazapine 7.5 mg PO HS 10/09/18 10/09/18 Unknown History Multivit-Min/FA/Lycopen/Lutein 1 each PO DAILY 10/09/18 10/09/18 Unknown History [Men 50 Plus Multivitamin Tab] Ondansetron [Zofran ODT TAB] 8 mg PO Q8HR PRN 10/09/18 10/09/18 Unknown History Polyethylene Glycol 3350 17 gm PO PRN PRN 10/09/18 10/09/18 Unknown History [Smoothlax] Sennosides [Senna Laxative] 8.6 mg PO PRN PRN 10/09/18 10/09/18 Unknown History Sevelamer Carbonate [Renvela] 800 mg PO TIDWM 10/09/18 10/09/18 Unknown History Venlafaxine [Effexor 25mg tab] 25 mg PO BID 10/09/18 10/09/18 Unknown History predniSONE [Prednisone] 5 mg PO QDAY 10/09/18 10/09/18 Unknown History Active Medications: Generic Name Dose Route Start Last Admin Trade Name Freq PRN Reason Stop Dose Admin Acetaminophen 650 mg 10/09/18 22:03 10/16/18 08:28 Tylenol PO 650 mg Q4H PRN Administration Pain MILD(1-3)/Fever >100.5/DIAZ Acetaminophen 500 mg 10/09/18 22:06 10/16/18 22:21 Tylenol PO 500 mg Q6HR PRN Administration Pain, Moderate (4-6) Bacitracin 1 applic 10/13/18 16:00 10/18/18 22:59 Antibiotic Oint TP 1 applic BID ENRICO Administration Bicalutamide 50 mg 10/11/18 10:00 10/18/18 11:20 Casodex PO 50 mg QDAY ENRICO Administration Cholecalciferol 2,000 unit 10/10/18 10:00 10/18/18 11:19 Vitamin D3 PO 2,000 unit QDAY ENRIOC Administration Epoetin Víctor 20,000 unit 10/10/18 14:00 10/18/18 20:30 Procrit IV 20,000 unit DAKOTA PRN Administration .anemia Famotidine 10 mg 10/09/18 23:00 10/18/18 22:57 Pepcid PO 10 mg BID ENRICO Administration Ferrous Sulfate 325 mg 10/10/18 10:00 10/18/18 11:20 Feosol PO 325 mg QDAY ENRICO Administration Heparin Sodium (Porcine) 5,000 unit 10/13/18 16:00 10/18/18 22:58 Heparin SUB-Q 5,000 unit Q12HR ENRICO Administration Hydromorphone HCl 0.25 mg 10/09/18 22:03 10/11/18 09:09 Dilaudid IV 0.25 mg Q3H PRN Administration Pain, Moderate (4-6) Ceftriaxone Sodium 1 gm in 50 mls @ 100 mls/hr 10/17/18 11:00 10/19/18 10:27 Rocephin/Ns 1 Gm/50 Ml IV 100 mls/hr Q24HR ENRICO Administration Protocol Sodium Chloride 100 mls @ 999 mls/hr 10/18/18 09:26 Nacl 0.9% IV DAKOTA PRN Hypotension Insulin Human Isoph/Insulin Regular 6 unit 10/15/18 17:00 10/18/18 17:01 Humulin 70/30 SUB-Q 6 unit BIDDIAB ENRICO Administration Insulin Human Lispro 0 unit 10/12/18 16:30 10/18/18 22:57 Humalog SUB-Q Not Given ACHS [facility] Protocol Metoclopramide HCl 10 mg 10/09/18 20:01 10/10/18 18:12 Reglan IV 10 mg Q6H PRN Administration Nausea And Vomiting Mirtazapine 7.5 mg 10/09/18 22:00 10/18/18 22:57 Remeron PO 7.5 mg QHS ENRICO Administration Miscellaneous Medication 1,000 mg 10/10/18 10:00 Abiraterone Acetate (Nf) PO QDAY [facility] Ondansetron HCl 4 mg 10/09/18 22:03 10/11/18 14:04 Zofran IV 4 mg Q8H PRN Administration Nausea And Vomiting Oxycodone/Acetaminophen 1 tab 10/09/18 22:03 10/18/18 23:10 Percocet 5/325 PO 1 tab Q6H PRN Administration Pain, Moderate (4-6) Prednisone 5 mg 10/10/18 10:00 10/18/18 11:23 Deltasone PO 5 mg QDAY E[place] Administration Senna 8.6 mg 10/09/18 22:06 10/10/18 22:32 Senokot PO 8.6 mg DAILY PRN Administration Constipation Sevelamer Carbonate 800 mg 10/10/18 08:00 10/18/18 17:02 Renvela PO 800 mg TIDWM E[place] Administration Sodium Chloride 10 ml 10/10/18 10:00 10/18/18 23:05 Sodium Chloride Flush Syringe 10 Ml IV 10 ml BID ENRICO Administration Sodium Chloride 10 ml 10/09/18 22:03 10/11/18 14:04 Sodium Chloride Flush Syringe 10 Ml IV 10 ml PRN PRN Administration LINE FLUSH Venlafaxine HCl 25 mg 10/09/18 23:00 10/18/18 22:57 Effexor PO 25 mg BID ENRICO Administration
[2018-10-19] MEDS: VITAMIN D3 PO SCH (10:59)
[2018-10-19] MEDS: DELTASONE PO SCH (11:00)
[2018-10-19] MEDS: RENVELA PO SCH ×2 (11:00→16:13)
[2018-10-19] MEDS: FEOSOL PO SCH (11:00)
[2018-10-19] MEDS: PEPCID PO SCH (11:00)
[2018-10-19] MEDS: HEPARIN SUB-Q SCH (11:00)
[2018-10-19] MEDS: EFFEXOR PO SCH (11:00)
[2018-10-19] MEDS: ANTIBIOTIC OINT TP SCH (11:01)
[2018-10-19] MEDS: SODIUM CHLORIDE FLUSH SYRINGE 10 ML IV SCH (11:01)
[2018-10-19] MEDS: CASODEX PO SCH (11:01)
[2018-10-19] MEDS: HumaLOG SUB-Q SCH ×2 (11:21→16:13)
--- NOTE | 2018-10-19 14:19 | Discharge Summary ---
Providers - Providers Date of Admission: 10/09/18 12:49 Date of discharge: 10/19/18 Attending physician: BRENDA LANTIGUA 10/09/18 22:03 Consult to Physician [CONS] Routine Comment: Consulting Provider: RUDI DOUGHERTY Physician Instructions: Reason For Exam: esrd 10/10/18 06:59 Consult to Physician [CONS] Routine Comment: DEA Consulting Provider: JH WANG Physician Instructions: WAS NOTIFIED. Reason For Exam: Nephrostomy tube status 10/11/18 17:02 Speech Therapy Evaluation and Treat [CONS] Routine Reason For Exam: swallowing eval. 10/13/18 11:21 Consult to Physician [CONS] Routine Comment: Consulting Provider: TRINIDAD NUÑEZ Physician Instructions: Reason For Exam: MRSA 10/13/18 15:57 Consult to Physician [CONS] Routine Comment: Consulting Provider: ARA PEÑA Physician Instructions: Reason For Exam: MRSa Nares/Sepsis 10/14/18 18:55 Physical Therapy Evaluation and Treat [CONS] Routine Comment: Reason For Exam: Gen. irritability/evaluate and treat Primary care physician: POLY KARIMI Hospitalization Reason for admission: Altered level of consciusness. Condition: Stable Pertinent studies: CT head CT abd and pelvis Hospital course: Patient was 63 minutes old male with history of end-stage renal disease on hemodialysis, hypertension, diabetes, anemia, prostate cancer and nephrostomy tube. Patient brought to the emergency patient became confused and altered after he sustained a fall from his bed.Patient was admitteed ,symptomatically managed. Evaluated by ID,urology and nephrology,received HD pershedule. Symptoms improve,Stable for discharge Discharge Diagnosis: --History of prostate Cancer /Nephrostomy tube Urology following, nephrostomy care Patient has follow-up neurology appointment tomorrow Check with Urology the plan of care --MRSA in Nares Contact isolation, bacitracin ointment, ID evaluation if needed --Hyperglycemia Well-controlled hemoglobin A1c 6, patient is on long-term low-dose steroid Accu-Chek sliding scale coverage, low-dose long-acting insulin 7030, closely monitor -- Anemia s/p 2 unit of PRBC transfusion, Hb improved from 6.3 to 6.9-8.5 Continue Epogen during dialysis -- Sepsis/complicated UTI Sepsis secondary to urinary tract infection SIRS criteria 2 out of 4 Leukocytosis and tachycardia, continue current antibiotics More alert and oriented --Acute Encephalopathy Secondary to Uremia and Sepsis improving More Communicative --Chronic Pain Pain control with Analgesics -- End stage renal disease End-stage renal disease Access right IJ catheter Receive dialysis on 10/10/2018 on dialysis Repeat dialysis in the a.m. -- Hypertension Moderate control, continue current antihypertensives and when necessary medications --DVT Prophylaxis On Heparin and GI prophylaxis Physical therapy occupational therapy Plan of care reviewed with the patient and his nurse. Disposition: [id number]/[place]-[facility] Time spent for discharge: 33 min Core Measure Documentation - Palliative Care Palliative Care/ Comfort Measures: Not Applicable - Core Measures Any of the following diagnoses?: none Exam - Constitutional Vitals: Temp Pulse Resp BP Pulse Ox 97.8 F 88 18 86/53 96 10/19/18 08:21 10/19/18 08:25 10/19/18 08:25 10/19/18 08:21 10/19/18 08:25 General appearance: Present: no acute distress, well-nourished - EENT Eyes: Present: PERRL, EOM intact - Neck Neck: Present: supple, normal ROM - Respiratory Respiratory effort: normal Respiratory: bilateral: diminished, negative: rales, rhonchi, wheezing - Cardiovascular Rhythm: regular Heart Sounds: Present: S1 & S2 - Extremities Extremities: no ischemia, No edema - Abdominal General gastrointestinal: Present: soft, non-tender, non-distended, normal bowel sounds - Integumentary Integumentary: Present: clear, warm - Musculoskeletal Musculoskeletal: strength equal bilaterally - Psychiatric Psychiatric: appropriate mood/affect, cooperative - Neurologic Neurologic: CNII-XII intact, moves all extremities Plan Activity: advance as tolerated Diet: renal Special Instructions: physical therapy Additional Instructions: f/u renal and HD per schedule. Advised to follow private urologist at [place] per scheduled Follow up with: POLY KARIMI MD [Primary Care Provider] - 3-5 Days GAVIN BHANDARI MD [Staff Physician] - 7 Days ARA PEÑA MD [Staff Physician] - 7 Days Prescriptions: cefUROXime [Ceftin] 2 tab PO DAILY #2 tablet
[2018-10-19 16:07] VITALS: BP 105/52
== END 2018-10-19 17:15 | DRG 871 ==
LOC: ED 10:05 → 3A 12:49 → 2B-ACE 17:42
PROVIDERS: ADMIT Internal Medicine; ATTEND Internal Medicine
PROC: 5A1D70Z Performance of Urinary Filtration, Intermittent, Less than 6 Hours Per Day (ICD-10-PCS; 2018-10-10)
PROC: 3E0234Z Introduction of Serum, Toxoid and Vaccine into Muscle, Percutaneous Approach (ICD-10-PCS; 2018-10-10)
PROC: BT111ZZ Fluoroscopy of Right Kidney using Low Osmolar Contrast (ICD-10-PCS; 2018-10-10)
PROC: 5A1D70Z Performance of Urinary Filtration, Intermittent, Less than 6 Hours Per Day (ICD-10-PCS; 2018-10-12)
PROC: 5A1D70Z Performance of Urinary Filtration, Intermittent, Less than 6 Hours Per Day (ICD-10-PCS; 2018-10-13)
PROC: 5A1D70Z Performance of Urinary Filtration, Intermittent, Less than 6 Hours Per Day (ICD-10-PCS; 2018-10-14)
PROC: 30233N1 Transfusion of Nonautologous Red Blood Cells into Peripheral Vein, Percutaneous Approach (ICD-10-PCS; principal; 2018-10-15)
PROC: 5A1D70Z Performance of Urinary Filtration, Intermittent, Less than 6 Hours Per Day (ICD-10-PCS; 2018-10-16)
PROC: 5A1D70Z Performance of Urinary Filtration, Intermittent, Less than 6 Hours Per Day (ICD-10-PCS; 2018-10-18)
DX: A41.9 Sepsis, unspecified organism (principal); N18.6 End stage renal disease; G93.41 Metabolic encephalopathy; N39.0 Urinary tract infection, site not specified; E87.2 Acidosis; I12.0 Hypertensive chronic kidney disease with stage 5 chronic kidney disease or end stage renal disease; N25.81 Secondary hyperparathyroidism of renal origin; D63.1 Anemia in chronic kidney disease; C61 Malignant neoplasm of prostate; E11.22 Type 2 diabetes mellitus with diabetic chronic kidney disease; E11.65 Type 2 diabetes mellitus with hyperglycemia; G89.29 Other chronic pain; E55.9 Vitamin D deficiency, unspecified; K59.09 Other constipation; F32.9 Major depressive disorder, single episode, unspecified; Z79.84 Long term (current) use of oral hypoglycemic drugs; Z99.2 Dependence on renal dialysis; Z82.49 Family history of ischemic heart disease and other diseases of the circulatory system; Z79.899 Other long term (current) drug therapy; Z93.6 Other artificial openings of urinary tract status; Z22.322 Carrier or suspected carrier of Methicillin resistant Staphylococcus aureus; Z23 Encounter for immunization
CPT/HCPCS: 36415; 36430; 70450; 71045; 74176; 80048; 80053; 80061; 80074; 80076; 81001; 82140; 82962; 83036; 84153; 84484; 85007; 85018; 85025; 85610; 85730; 86850; 86900; 86901; 86920; 87040; 87086; 87116; 90471; 90686; 90732; 93005; 93010; 94760; 96374; 96375; 99291; G0378; G0008; G0009; J0696; J0885; J1170; J1644; J1815; J2405; J2543; J2765; J2997; J3370; J7030; J7040; J7512; J9999; P9016; Q9967